=== PATIENT | female | born 1940 | race Caucasian/White ===

== ENCOUNTER 2016-03-25 11:53 | Emergency (ER) | payer OTHER, MEDICARE ==
[~2016-03-25] VITALS: Ht 160 cm; Wt 86.2 kg
[~2016-03-25 11:53] MED LIST: ALTACE10 M2 PO; ARIMIDEX1 M1 PO; ASPIRIN EC81 M1 PO; COMBIGAN EYE DRO5 ML OPH; HYDROCHLOROTH12.5 M3 PO; LIPITOR20 M2 PO; METFORMIN HCL500 M3 PO; PRED FORTE1 ML OPH; TOPROL XL25 M1 PO; VERAPAMIL ER P200 MG PO
--- NOTE | 2016-03-25 12:57 | RADIOLOGY REPORT ---
EXAMINATION: XR ANKLE, LEFT CLINICAL INFORMATION: Fall, pain and swelling COMPARISON: None TECHNIQUE: AP, lateral, and oblique views of the left ankle. FINDINGS: Alignment across the ankle is anatomic. On the oblique view there is questionable subtle cortical irregularity along the lateral aspect of the distal fibula, for which a nondisplaced fracture difficult to exclude. Adjacent soft tissue swelling is present. Plantar calcaneal spurring is noted. IMPRESSION: Questionable subtle cortical irregularity along the lateral cortex of the distal fibula, only seen on a single view; a nondisplaced fracture is difficult to exclude in the setting of trauma and overlying soft tissue swelling.
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
[2016-03-25] MEDS ORDERED: PERCOCET 5-3251 EACH PO (14:55)
[2016-03-25 15:13] VITALS: BP 126/84
== END 2016-03-25 15:14 ==
LOC: ERH 11:53
DX: S82.832A Other fracture of upper and lower end of left fibula, initial encounter for closed fracture (principal); S39.012A Strain of muscle, fascia and tendon of lower back, initial encounter; W10.9XXA Fall (on) (from) unspecified stairs and steps, initial encounter
CPT/HCPCS: 73610-LT

== ENCOUNTER → 2016-09-16 | Day surgery (SDC) | payer OTHER, MEDICARE ==
[~2016-09-16] VITALS: Ht 160 cm; Wt 85.3 kg
[~2016-09-16] MED LIST changes: +ASPIRIN325 M2 PO; +PERCOCET 5-3251 EACH PO
--- NOTE | 2016-09-16 13:21 | Operative Report ---
Operative/Inv Procedure Report Surgery Date: 09/16/16 Name of Procedure: Excision of skin malignancy living 4 cm Full-thickness skin graft Lr 16 cm Biopsy left leg lesion separate Biopsy right leg lesion Application wound VAC 16 cm right leg Pre-Operative Diagnosis: Skin cancer left leg lesion left and right legs Post-Operative Diagnosis: Pathology pending Estimated Blood Loss: less than 50ml Surgeon/Investigation Division Captain: BENJAMIN RODRIGUEZ MD Anesthesia: moderate sedation Operative/Procedure Note Note: She was counseled regarding the procedure the alternatives risks and expected outcomes related to her requests surgical intervention to treat carcinoma of the left leg skin. We talked about excision for the full-thickness skin grafting with risk of infection bleeding pain partial complete loss Of the graft it for additional surgery based on final pathology recurrence. On the left anterior leg on the right anteriorly that will be biopsied today. He might need further surgery based on final pathology which the patient understands will not take place for 1-2 weeks. Patient signed informed consent after additional discussion. She is brought to the operating room placed supine on the table intravenous sedation antibiotic given in the left groin and bilateral lower extremity are prepped and draped in usual sterile fashion. Full -thickness excision around the lesion for the dimensions described above was carried out to the crural fascia. At that point full-thickness graft was harvested from the left groin defatted and placed into the defect chromic suture. A wound VAC was placed. Shave biopsy was carried out with a separate lesion of the left anterior leg and the right anterior leg wound entry with electrocautery and covered with Band-Aids. The right groin was closed in 2 layers of absorbable suture.
== END ==
LOC: STS 02:28
DX: C44.719 Basal cell carcinoma of skin of left lower limb, including hip (principal); C44.712 Basal cell carcinoma of skin of right lower limb, including hip; I10 Essential (primary) hypertension; E11.9 Type 2 diabetes mellitus without complications; Z79.84 Long term (current) use of oral hypoglycemic drugs; E78.00 Pure hypercholesterolemia, unspecified
CPT/HCPCS: J0131; J0690; J2250

== ENCOUNTER 2017-05-11 19:31 | Inpatient (IN) | payer OTHER, MEDICARE ==
[~2017-05-11] VITALS: Ht 160 cm; Wt 79.4 kg
[~2017-05-11 19:31] MED LIST changes: +AMOXICILLIN250 M3 PO; +TYLENOL WITH C1 EACH PO
--- NOTE | 2017-05-11 19:39 | ED AMS/SEIZURE/WEAK/DIZZY ---
History of Present Illness General Chief Complaint: General Adult Stated Complaint: WEAKNESS X 1 WEEK Source: patient, old records Exam Limitations: no limitations Vital Signs & Intake/Output Vital Signs & Intake/Output Vital Signs Date Time Temp Pulse Resp B/P B/P Pulse O2 O2 Flow FiO2 Mean Ox Delivery Rate 05/11 2201 96.6 96 18 128/56 99 Room Air 05/11 1938 96.6 98 18 117/56 98 Room Air Allergies Coded Allergies: NO KNOWN ALLERGIES (03/18/16) NKA PER ANTIBIOTIC SHEET - SJS Reconcile Medications Amoxicillin 250 MG CAPSULE 1 CAP PO TID ABSCESS Aspirin (Aspirin*) 325 MG TABLET 1 TAB PO DAILY PROPHO (Reported) Atorvastatin Calcium (Lipitor) 20 MG TABLET 1 TAB PO DAILY CHOLESTEROL ( Reported) Brimonidine Tartrate/Timolol (Combigan Eye Drops) (Unknown Strength) DROPS ( Unknown Dose) OPH BID EYE(S) (Reported) Hydrochlorothiazide 12.5 MG CAPSULE 1 CAP PO DAILY BP (Reported) Metformin HCl 500 MG TABLET 1 TAB PO BID DM (Reported) Metoprolol Succ XL (Toprol XL) (Unknown Strength) TAB 50 MG PO DAILY HTN ( Reported) Prednisolone Acetate (Pred Forte) (Unknown Strength) DROPS.SUSP (Unknown Dose) OPH BID EYE(S) (Reported) Ramipril (Altace) 10 MG CAPSULE 2 CAP PO DAILY BP (Reported) Tylenol With Codeine (Tylenol With Codeine #3 Tablet) 300 MG-30 MG TABLET 1 TAB PO Q8P PRN PAIN Verapamil HCl (Verapamil ER Pm) 200 MG CAP24H.PCT 1 CAP PO DAILY BP (Reported ) Triage Note: PT BIBA FROM HOME AFTER C/O WEAKNESS STARTING 3 DAYS AGO. PT CURRENTLY C/O NAUSEA, SOB, BACK PAIN, CONSTIPATION X 3 DAYS. PT AOX3. 20G IV IN LW ESTABLISHED BY EMS. PER EMS BS WAS "IN THE 200S" Triage Nurses Notes Reviewed? yes Onset: Abrupt Duration: day(s): (3), constant Timing: recent history Injury Environment: home Severity: moderate Severity Numbers: 5 No Modifying Factors: none Associated Symptoms: cough HPI: 76-year-old female history of hypertension and high cholesterol, presents with daughter for evaluation complain of generalized malaise weakness for the past 3 days associated with nonproductive cough nausea and constipation for 4 days. She denies abdominal pain diarrhea. No vomiting. No chest pain. No shortness of breath fever chills no sick contacts. She has not taken anything for her symptoms no urinary urgency frequency dysuria. She has been compliant with taking all her medication. she does not smoke (Michael Sifuentes) Past History Travel History Traveled to [place] past 21 day No Medical History Any Pertinent Medical History? see below for history Neurological: NONE EENT: glaucoma Cardiovascular: hypertension, hyperlipidemia Respiratory: NONE Gastrointestinal: NONE Hepatic: NONE Renal: NONE Musculoskeletal: NONE Psychiatric: NONE Endocrine: diabetes Blood Disorders: NONE Cancer(s): NONE CUSTOM PROTECTION OFFICER/Reproductive: NONE Surgical History Surgical History: non-contributory Psychosocial History What is your primary language Chadian Tobacco Use: Quit >30 days ago ETOH Use: occasional use Family History Hx Contributory? No (Michael Sifuentes) Review of Systems Review of Systems Constitutional: Reports: see HPI. Comments Review of systems: See HPI, All other systems negative. Constitutional, no chills no fever HEENT: no sore throat no congestion Cardiovascular: No chest pain , no palpitation Skin: no rashes, no change in skin Respiratory: No dyspnea cough GI: No nausea no vomiting, no diarrhea : No dysuria No hematuria, no frequency jamin: no back pain, no neck pain, Neurologic: , no headache Heme/endocrine: No bruising Immunology: No lymphadenopathy (Michael Sifuentes) Physical Exam Physical Exam General Appearance: well developed/nourished, no apparent distress, alert Comments: Well-developed well-nourished person in no acute distress HEENT: Normal EENT exam; PERRL, EOMI,. HEAD is atraumatic. moist mucous membranes. Neck: Supple, normal range of motion Back: Full range of motion Cardiovascular: Regular rate and rhythms no murmurs Respiratory: No respiratory distress. Patient speaking in full complete sentences. Breath sounds clear to auscultation bilaterally: NO W/R/R Abdomen: Soft, nontender nondistended, no appreciable organomegaly. Normal bowel sounds. No rebound/guarding, No ascites. Rectal: Nontender. Heme negative stool. Extremity: No edema, full range of motion of extremities, Neuro: Alert oriented x3, motor sensory normal, There were no obvious focal neurologic abnormalities. Skin: No appreciable rash on exposed skin, skin is warm and dry. Psych: Mood and affect is normal, memory and judgment is normal. Core Measures ACS in differential dx? No CVA/TIA Diagnosis No Sepsis Present: No Sepsis Focused Exam Completed? No (Sloan RODRIGUEZ,Michael) Progress Differential Diagnosis: arrythmia, anemia, dehydration, electrolyte imbalance ( AMI, PNA CONSTIPATION, GI BLEE), GI bleed Plan of Care: Orders Procedure Date/time Status Consistent Carbohydrate 2 05/12 B Active BLOOD PRODUCT PICKUP 05/11 2232 Active Patient Data 05/11 2219 Active OXYGEN SETUP (GEN) 05/11 2147 Active Saline Lock 05/11 2147 Active Admit to inpatient 05/11 2147 Active Vital Signs 05/11 2147 Active Activity/Ambulation 05/11 2147 Active Code Status 05/11 2147 Active LEUKOCYTE POOR (PACKED CELLS) 05/11 2124 Active PROTHROMBIN TIME 05/11 2119 Complete TYPE & SCREEN (NOT X-MATCH) 05/11 2119 Active Add-on Test (ER Only) 05/11 2056 Active CULTURE,URINE 05/11 2017 Active RAPID VIRAL INFLUENZA A 05/11 1938 Complete URINALYSIS 05/11 1938 Complete TROPONIN LEVEL 05/11 1938 Complete COMPREHENSIVE METABOLIC PANEL 05/11 1938 Complete CBC WITHOUT DIFFERENTIAL 05/11 1938 Complete EKG 05/11 1937 Active Laboratory Tests 05/11/172154: PT 13.4 H, INR 1.28 H 05/11/172014: Urine Color YEL, Urine Clarity HAZY H, Urine pH 6.0, Ur Specific Manter 1.020, Urine Protein 30 H, Urine Ketones 15 H, Urine Nitrite NEG, Urine Bilirubin NEG @ICTO, Urine Urobilinogen 0.2, Ur Leukocyte Esterase MOD H, Ur Microscopic SEDIMENT EXAMINED, Urine RBC FEW H, Urine WBC 25-50 H, Ur Epithelial Cells FEW , Urine Bacteria MANY H, Urine Hemoglobin TRACE-INTACT, Urine Glucose NEG 05/11/171958: Anion Gap 21 H, Estimated GFR 19 L, BUN/Creatinine Ratio 25.0, Glucose 104 H, Calcium 9.2, Total Bilirubin 1.4 H, AST 192 H, ALT 79 H, Alkaline Phosphatase 436 H, Troponin I < 0.01, Total Protein 6.0 L, Albumin 3.4 L, Globulin 2.6, Albumin/Globulin Ratio 1.3, CBC w Diff MAN DIFF ORDERED, RBC 2.90 L, MCV 67.0 L, MCH 21.5 L, MCHC 32.0 L, RDW 19.4 H, MPV 7.5, Gran % 42.6, Lymphocytes % 43.0, Monocytes % 12.5 H, Eosinophils % 1.9, Basophils % 0, Absolute Granulocytes 1.8, Segmented Neutrophils 48, Band Neutrophils 3, Absolute Lymphocytes 1.8, Lymphocytes 38, Monocytes 9, Absolute Monocytes 0.5, Eosinophils 2, Absolute Eosinophils 0.1, Absolute Basophils 0, Nucleated RBCs 20 H, Platelet Estimate DECREASED, Polychromasia 1+, Hypochromic-Microcytic 2+, Poikilocytosis 1+, Anisocytosis 2+, Microcytic Cells 2+ Microbiology 05/11 2017 URINE ROUT: Urine Culture - RECD 05/11 1999 NASOPHARYN: Influenza Virus A & B Rapid Smear - COMP Labs ordered old records reviewed at the fluids ordered Discussed the patient and her family all her lab results-there is no abdominal pain I discussed with him the incidental findings regarding the elevated LFTs, she reports the last transfusion she needed when when she gave , no black or bloody stools recently guaiac was negative patient was consented for 1 unit of blood Case discussed with Dr. Huang will admit Diagnostic Imaging: Viewed by Me: Radiology Read. Discussed w/RAD: Radiology Read. Radiology Impression: PATIENT: BOUCHRA LOZADA PRESENT AGE: 76 PATIENT ACCOUNT NO: [id number] : 40 LOCATION: [facility] ORDERING PHYSICIAN: Michael RODRIGUEZ SERVICE DATE: 05/11/17 EXAM TYPE: RAD - [id number] VIEW EXAMINATION: XR ABDOMEN CLINICAL INDICATION: Constipation. Abdominal pain. COMPARISON: None TECHNIQUE: AP view of the abdomen. FINDINGS: Small to moderate volume of stool in colon. Largest collection of the stool is in the pelvis at the rectum sigmoid. No dilated bowel loop. Nonobstructive bowel pattern. No radiopaque urinary calculi. Degenerative subchondral sclerosis of sacroiliac joints. Degenerative disc disease of lower lumbar spine with multilevel endplate spurring of vertebrae. IMPRESSION: No acute change. Small to moderate volume of stool in colon. DICTATED BY: Braulio Garza MD DATE/TIME DICTATED:05/11/172150 BOOT MAKER:APPLE DATE/TIME TRANSCRIBED:05/11/172150 CONFIDENTIAL, DO NOT COPY WITHOUT APPROPRIATE AUTHORIZATION. <Electronically signed in Other Vendor System> SIGNED BY: Braulio Garza MD 05/11/172155, PATIENT: BOUCHRA LOZADA PRESENT AGE: 76 PATIENT ACCOUNT NO: [id number] : 40 LOCATION: [facility] ORDERING PHYSICIAN: Michael RODRIGUEZ SERVICE DATE: 05/11/17 EXAM TYPE: RAD - XRY-CHEST XRAY, TWO VIEWS EXAMINATION: XR CHEST CLINICAL INFORMATION: Cough. COMPARISON: None TECHNIQUE: 2 views of the chest were obtained. FINDINGS: Heart size is top normal. There are calcifications of aortic arch. No pulmonary vascular congestion. Lungs are clear. No pleural effusion Multiple surgical clips in the left axilla. Degenerative spondylosis of spine with bridging osteophytes of the thoracic vertebrae. IMPRESSION: No acute abnormality of chest. DICTATED BY: Braulio Garza MD DATE/TIME DICTATED:05/11/172149 BOOT MAKER:APPLE DATE/TIME TRANSCRIBED:05/11/172149 CONFIDENTIAL, DO NOT COPY WITHOUT APPROPRIATE AUTHORIZATION. <Electronically signed in Other Vendor System> SIGNED BY: Braulio Garza MD 05/11/172153 Initial ED EKG: normal intervals, normal p-waves, normal QRS complex, normal sinus rhythm (Michael Sifuentes) Departure Departure Time of Disposition: 2123 Disposition: STILL A PATIENT Condition: Stable Clinical Impression Primary Impression: JOSUE (acute kidney injury) Secondary Impressions: Anemia, Elevated bilirubin, Hyperkalemia, Transaminitis Referrals: Orestes Huang MD (PCP/Family) Departure Forms: Customer Survey General Discharge Information Admission Note Spoke With: Oresets Huang MD Documentation of Exam: Documentation of any treatments & extenuating circumstances including Concerns Regarding Discharge (functional status, medication knowledge or non-compliance, living conditions, etc.) that warrant an admission rather than observation: [ TREND LABS TREND H/H, IV FLUIDS, PREMATURE DISCHARGE WOULD BE MEDICALLY HARMFUL (Michael Sifuentes) PA/BINDERY LIBRARY TECHNICAL ASSISTANT Co-Sign Statement Statement: ED Attending supervision documentation- x I saw and evaluated the patient. I have also reviewed all the pertinent lab results and diagnostic results. I agree with the findings and the plan of care as documented in the PA's/BINDERY LIBRARY TECHNICAL ASSISTANT's documentation. Progressive weakness anorexia fatigue with UTI JOSUE [] I have reviewed the ED Record and agree with the PA's/BINDERY LIBRARY TECHNICAL ASSISTANT's documentation. [] Additions or exceptions (if any) to the PAs/BINDERY LIBRARY TECHNICAL ASSISTANT's note and plan are summarized below: [] (Yenny LAKE,Kit)
[2017-05-11 20:12] LABS: ABSOLUTE BASOPHIL COUNT 0 /CUMM (0.0-0.2); ABSOLUTE EOSINOPHIL COUNT 0.1 /CUMM (0.0-0.7); ABSOLUTE GRANULOCYTE CT 1.8 /CUMM (1.4-6.5); ABSOLUTE LYMPH COUNT 1.8 /CUMM (1.2-3.4); ABSOLUTE MONOCYTE COUNT 0.5 /CUMM (0.10-0.60); BASOPHIL % 0 % (0.0-2.0); EOSINOPHIL % 1.9 % (0-5); GRANULOCYTE % 42.6 % (42.2-75.2); MEAN CORPUSCULAR HGB 21.5 PG (27.0-31.0); MEAN PLATELET VOLUME 7.5 FL (7.4-10.4); PLATELET COUNT 35 /CUMM (130-400); RBC DISTRIBUTION WIDTH 19.4 % (11.5-14.5)
[2017-05-11 20:17] LABS: HEMATOCRIT 19.4 % (37-47)
[2017-05-11 20:44] LABS: WHITE BLOOD CELL COUNT 3.6 /CUMM (4.8-10.8)
--- NOTE | 2017-05-11 21:54 | RADIOLOGY REPORT ---
EXAMINATION: XR CHEST CLINICAL INFORMATION: Cough. COMPARISON: None TECHNIQUE: 2 views of the chest were obtained. FINDINGS: Heart size is top normal. There are calcifications of aortic arch. No pulmonary vascular congestion. Lungs are clear. No pleural effusion Multiple surgical clips in the left axilla. Degenerative spondylosis of spine with bridging osteophytes of the thoracic vertebrae. IMPRESSION: No acute abnormality of chest.
--- NOTE | 2017-05-11 21:56 | RADIOLOGY REPORT ---
EXAMINATION: XR ABDOMEN CLINICAL INDICATION: Constipation. Abdominal pain. COMPARISON: None TECHNIQUE: AP view of the abdomen. FINDINGS: Small to moderate volume of stool in colon. Largest collection of the stool is in the pelvis at the rectum sigmoid. No dilated bowel loop. Nonobstructive bowel pattern. No radiopaque urinary calculi. Degenerative subchondral sclerosis of sacroiliac joints. Degenerative disc disease of lower lumbar spine with multilevel endplate spurring of vertebrae. IMPRESSION: No acute change. Small to moderate volume of stool in colon.
[2017-05-11 22:12] LABS: PT 13.4 SEC (9.4-12.5)
--- NOTE | 2017-05-12 01:52 | CT SCAN REPORT ---
EXAMINATION: CT CHEST WITHOUT CONTRAST CT ABDOMEN AND PELVIS WITHOUT CONTRAST CLINICAL INFORMATION: Shortness of breath, cough. Transaminitis, weight loss. COMPARISON: None. TECHNIQUE: Multidetector volumetric imaging was performed through the chest, abdomen and pelvis without contrast. Sagittal and coronal reformatted images were obtained on the technologist's workstation. Axial MIP volume rendering provided. DLP: 498 mGy-cm. FINDINGS: CHEST: Lungs: The central airways are patent. Minimal groundglass opacity seen in the lingula along the major fissure. No dense consolidation. No pneumothorax or pleural effusion. Mild mosaic attenuation seen in the upper lobes anteriorly. Mediastinum: The heart is normal in size. No pericardial effusion. Prominent appearance of the main pulmonary artery measuring 3.7 cm suggesting pulmonary artery hypertension. The visualized thyroid gland is unremarkable. No mediastinal lymphadenopathy. Chest Wall/Axilla: There is a nodular density in the upper outer quadrant of the left breast with multiple surrounding surgical clips. No axillary lymphadenopathy. ABDOMEN/PELVIS: Liver, Gallbladder, Biliary Tree: The liver is normal in size, shape, and attenuation. No focal hepatic lesion or biliary ductal dilatation is present. The gallbladder is unremarkable with no evidence of radiopaque gallstones, gallbladder wall thickening, or pericholecystic inflammatory changes. Pancreas: Unremarkable. Spleen: Unremarkable. Adrenal Glands: Unremarkable. Kidneys and Ureters: The kidneys are normal in size, shape, and attenuation. No hydronephrosis, hydroureter or calculi seen. No perinephric stranding. Bladder: Unremarkable. Gastrointestinal Tract: The stomach is unremarkable. The small bowel is normal in caliber. No obstruction. Scattered colonic diverticulosis without diverticulitis. Stool distends the rectum. No colonic wall thickening or inflammatory change. No free air or free fluid. Abdominal Wall: No hernia is demonstrated. Lymphovascular Structures: Lymph nodes: Normal. Vascular: Normal caliber aorta. Moderate atherosclerotic calcifications. Pelvic Viscera: The uterus and adnexa are unremarkable. OSSEOUS STRUCTURES: There are diffuse sclerotic lesions throughout the osseous structures suggestive of metastatic disease. This involves all of the visualized osseous structures on the examination. Mild compression deformity of the L3 vertebral body with approximately 50% loss of vertebral body height anteriorly. DISH. IMPRESSION: 1. Diffuse sclerotic lesions throughout the osseous structures suggestive of metastatic disease. Mild compression deformity of the L3 vertebral body of uncertain chronicity. 2. Minimal groundglass opacities in the lungs. A component of mild edema is possible. 3. No acute inflammatory changes of the abdomen or pelvis. Scattered diverticulosis without diverticulitis.
--- NOTE | 2017-05-12 02:37 | History & Physical ---
[place],Kacey 05/12/17 0237: General Information and HPI MD Statement: I have seen and personally examined BOUCHRA LOZADA and documented this H&P. The patient is a 76 year old F who presented with a patient stated chief complaint of [weakness]. Source of Information: patient, family Exam Limitations: poor historian History of Present Illness: 76 years old female with past medical history of hypertension, hyperlipidemia, skin cancer of the left leg S/P excision on 08/2016,BRBPR and sigmoid polyp S/P polypectomy on 10/2010, diverticulosis, internal hemorrhoid, breast cancer S/P lumpectomy on 10/2010 after which she was treated with chemotherapy and radiotherapy. Patient comes to the ED complaining of weakness, exertional shortness of breath for one week, dizziness back pain and spasm of the back muscles for 1 week for which the patient was taking [id number] Motrin 200 mg 3 tablets daily for the past 3 days. She also reports Nausea, vomiting of clear contents most likely mucus, diarrhea for a long time because the patient has history of diverticulosis, she reported having constipation for the past 4 days. Patient reports unintentional weight loss of 20 pounds in the past 6 months due to decreased appetite. Patient also noticed easy bruising and bleeding from a lesion on her right elbow. Patient denies fever, chills, chest pain, edema dysuria, frequency. Patient lives home with her daughter and is independent in her daily activities No sick contacts or recent travel, Of note the patient thinks she has a family history of thalassemia but she is not sure about the diagnosis, she also reports being hospitalized in her 40s for possible leukemia however she cannot recall her exact diagnosis Known smoker, drinks 2-3 glasses of wine daily ED course: Vital signs: Blood pressure 128/56, pulse 96, respiratory rate 18, temperature 96.6, pulse was 9 on room air Labs: WBC 3.6, hemoglobin 6.2, hematocrit 19.4, platelet 35, sodium 138, potassium 5.5, BUN 60, creatinine 2.5, glucose 104, phosphorus 4.6, iron 240, total bilirubin 1.4, AST 192, AST 79 alkaline phosphatase 436, LDH 2589, PT 13.4 INR 1.28 Patient patient received 1 units of packed RBCs in the ED Allergies/Medications Allergies: Coded Allergies: NO KNOWN ALLERGIES (03/18/16) NKA PER ANTIBIOTIC SHEET - SJS Home Med list Aspirin (Aspirin*) 325 MG TABLET 1 TAB PO DAILY PROPHO (Reported) Atorvastatin Calcium (Lipitor) 20 MG TABLET 1 TAB PO DAILY CHOLESTEROL ( Reported) Brimonidine Tartrate/Timolol (Combigan Eye Drops) (Unknown Strength) DROPS ( Unknown Dose) OPH BID EYE(S) (Reported) Hydrochlorothiazide 12.5 MG CAPSULE 1 CAP PO DAILY BP (Reported) Metformin HCl 500 MG TABLET 1 TAB PO BID DM (Reported) Metoprolol Succ XL (Toprol XL) (Unknown Strength) TAB 50 MG PO DAILY HTN ( Reported) Prednisolone Acetate (Pred Forte) (Unknown Strength) DROPS.SUSP (Unknown Dose) OPH BID EYE(S) (Reported) Ramipril (Altace) 10 MG CAPSULE 1 CAP PO DAILY BP (Reported) Verapamil HCl (Verapamil ER Pm) 200 MG CAP24H.PCT 1 CAP PO DAILY BP (Reported ) Past History Travel History Traveled to [place] past 21 day No Medical History Neurological: NONE EENT: glaucoma Cardiovascular: hypertension, hyperlipidemia Respiratory: NONE Gastrointestinal: NONE Hepatic: NONE Renal: NONE Musculoskeletal: NONE Psychiatric: NONE Endocrine: diabetes Blood Disorders: NONE Cancer(s): breast cancer PRE OWNED SALES MANAGER/Reproductive: NONE Surgical History Surgical History: non-contributory Past Family/Social History Psychosocial History ETOH Use: occasional use Review of Systems Review of Systems Constitutional: Reports: malaise, weakness. Denies: chills, diaphoresis, fever. Cardiovascular: Denies: chest pain, edema, orthopena, palpitations, peripheral edema. Respiratory: Reports: cough, short of breath, sputum production. GI: Reports: constipation, diarrhea, nausea, vomiting. Genitourinary: Denies: no symptoms. Musculoskeletal: Denies: no symptoms. Skin: Denies: no symptoms. Exam & Diagnostic Data Last 24 Hrs of Vital Signs/I&O Vital Signs Date Time Temp Pulse Resp B/P B/P Pulse O2 O2 Flow FiO2 Mean Ox Delivery Rate 05/12 0030 98.2 81 18 119/56 96 Room Air 05/12 0015 97.1 89 18 135/62 97 Room Air 05/11 2201 96.6 96 18 128/56 99 Room Air 05/11 1938 96.6 98 18 117/56 98 Room Air Intake & Output 05/12 0800 02/22 0000 05/11 1600 Intake Total 1000 Output Total Balance 1000 Intake, IV 1000 Patient 175 lb Weight Weight Reported by Patient Measurement Method Last 24 Hrs of Labs/Jim: Laboratory Tests 05/11/175: PT 13.4 H, INR 1.28 H 05/11/172014: Urine Color YEL, Urine Clarity HAZY H, Urine pH 6.0, Ur Specific [place] 1.020, Urine Protein 30 H, Urine Ketones 15 H, Urine Nitrite NEG, Urine Bilirubin NEG @ICTO, Urine Urobilinogen 0.2, Ur Leukocyte Esterase MOD H, Ur Microscopic SEDIMENT EXAMINED, Urine RBC FEW H, Urine WBC 25-50 H, Ur Epithelial Cells FEW , Urine Bacteria MANY H, Urine Hemoglobin TRACE-INTACT, Urine Glucose NEG 05/11/171958: Haptoglobin Pending 05/11/171958: Anion Gap 21 H, Estimated GFR 19 L, BUN/Creatinine Ratio 25.0, Glucose 104 H, Calcium 9.2, Phosphorus 4.6 H, Magnesium 2.1, Iron 240 H, TIBC 275, Ferritin Pending, Total Bilirubin 1.4 H, Direct Bilirubin 0.9 H, AST 192 H, ALT 79 H, Alkaline Phosphatase 436 H, Lactate Dehydrogenase 2589 H, Troponin I < 0.01, Total Protein 6.0 L, Albumin 3.4 L, Globulin 2.6, Albumin/Globulin Ratio 1.3, Vitamin B12 Pending, Folate Pending, CBC w Diff MAN DIFF ORDERED, RBC 2.90 L, MCV 67.0 L, MCH 21.5 L, MCHC 32.0 L, RDW 19.4 H, MPV 7.5, Gran % 42.6, Lymphocytes % 43.0, Monocytes % 12.5 H, Eosinophils % 1.9, Basophils % 0, Absolute Granulocytes 1.8, Segmented Neutrophils 48, Band Neutrophils 3, Absolute Lymphocytes 1.8, Lymphocytes 38, Monocytes 9, Absolute Monocytes 0.5, Eosinophils 2, Absolute Eosinophils 0.1, Absolute Basophils 0, Nucleated RBCs 20 H, Platelet Estimate DECREASED, Polychromasia 1+, Hypochromic-Microcytic 2+, Poikilocytosis 1+, Anisocytosis 2+, Microcytic Cells 2+, Retic Count 2.86 H, Hepatitis A IgM Ab Pending, Hep Bs Antigen Pending, Hep B Core IgM Ab Conf Pending, Hepatitis C Antibody Pending Microbiology 05/11 2017 URINE ROUT: Urine Culture - RECD 05/11 1999 NASOPHARYN: Influenza Virus A & B Rapid Smear - COMP Diagnostic Data CXR Results No acute abnormality of chest. Other Results CT abdomen and pelvis: 1. Diffuse sclerotic lesions throughout the osseous structures suggestive of metastatic disease. Mild compression deformity of the L3 vertebral body of uncertain chronicity. 2. Minimal groundglass opacities in the lungs. A component of mild edema is possible. 3. No acute inflammatory changes of the abdomen or pelvis. Scattered diverticulosis without diverticulitis. CT chest: 1. Diffuse sclerotic lesions throughout the osseous structures suggestive of metastatic disease. Mild compression deformity of the L3 vertebral body of uncertain chronicity. 2. Minimal groundglass opacities in the lungs. A component of mild edema is possible. 3. No acute inflammatory changes of the abdomen or pelvis. Scattered diverticulosis without diverticulitis. Assessment/Plan Assessment: 76 years old female with past medical history of hypertension, hyperlipidemia, skin cancer of the left leg S/P excision on 08/2016,BRBPR and sigmoid polyp S/P polypectomy on 10/2010, diverticulosis, internal hemorrhoid, breast cancer S/P lumpectomy on 10/2010 after which she was treated with chemotherapy and radiotherapy. 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 Other possibilities include leukemia/ lymphoma with cold autoimmune hemolysis. -Admit to general medical floor -Patient received 1 unit of packed RBCs in the ED -Follow up on Ferritin, TIBC, Delmy' test, reticulocyte count, vitamin B12, folic acid -Hematology consult appreciated -GI consult appreciated -Close monitoring of CBC -Vitals every shift #History of diabetes mellitus: Hold home meds Insulin sliding scale Fingerstick glucose #JOSUE/hyperkalemia Differential diagnosis includes a prerenal due to dehydration and poor oral intake, analgesic nephropathy, multiple myeloma. Gentle IV hydration Avoid nephrotoxic medication Close monitoring of kidney function Intake and output # Transaminitis: Differential diagnosis includes liver metastasis, analgesic side effect, GI consult appreciated Monitor of liver function test #Back pain: Since the patient has both renal impairment and hepatic impairment will avoid pain meds as possible Lidocaine patch Tylenol by mouth 500 mg every 8 when necessary #History of chronic medical condition includes hypertension, hyperlipidemia Continue home meds including metoprolol, verapamil Patient is full code DVT prophylaxis with Alps As Ranked By This Provider Problem List: 1. Elevated bilirubin 2. Transaminitis 3. Hyperkalemia 4. Anemia 5. JOSUE (acute kidney injury) 6. Lumbar strain Core Measures/Misc (12/05) Acute Coronary Syndrome ACS Diagnosis: No Congestive Heart Failure Congestive Heart Failure Diagnosis No Cerebrovascular Accident CVA/TIA Diagnosis: No VTE (View Protocol) VTE Risk Factors Age>40 No Mechanical VTE Prophylaxis d/t N/A MechProphylax Ordered No VTE Pharm Prophylaxis d/t Medical Contraindication Sepsis (View protocol) Sepsis Present: No Krishna Torres 05/12/17 0245: Resident Review Statement Resident Statement: examined this patient, discussed with test engineering intern, agreed with test engineering intern, discussed with family, reviewed EMR data (avail), discussed with nursing , discussed with case mgmt, reviewed images, amended to note Other Findings: This is 76 years old female with past medical history of hypertension, hyperlipidemia, skin cancer of the left leg S/P excision on 08/2016,BRBPR and sigmoid polyp S/P polypectomy on 10/2010, diverticulosis, internal hemorrhoid, breast cancer S/P lumpectomy on 10/2010 after which she was treated with chemotherapy and radiotherapy. Patient presented to the emergency department with a chief complaint of feeling tired, weak and fatigue. According to her and her daughter she been experiencing shortness of breath for the past week that is associated with back pain and muscle spasm and due to that patient was taking Aleve for 3 days 3-4 time a day, and after that she started to take 2 tablets of 200 mg of ibuprofen 2-3 time a day for the past 4 days. Patient reports constipation for the past 4 days, patient had recent colonoscopy on March 2017 that was done by Dr[address] Osorio that relieved pandiverticulosis. Patient also noticed easy bruising and bleeding from a lesion on her right elbow. Her daughter reports weight lost more than 20 pounds in the past 6 months that is associated with low appetite and decreased oral intake. Patient also states she drinking 3 -4 cups of wine every day, she denied using any hard liquor. Patient denies fever, chills, chest pain, edema dysuria, frequency. Of note patient stated that she had some blood disease and when we asked her she thought it could be thalassemia she's not sure also she stated that when she was with her child 4 years ago she received blood transfusion and they told her she may have some sort of leukemia but after that they told her she didn't have any of that. Assessment: -Pancytopenia: Patient stool guaiac negative, her pancytopenia associated with low MCV/MCH, wide differential diagnosis starting from benign hematology for disease like thalassemia as the patient has a sign of intravascular hemolysis, due to this hemolysis questionable autoimmune hemolytic anemia also with low platelet count Wright syndrome one of the differential. malignant hematological disease need to be ruled out like MDS, multiple myeloma giving the patient renal impairment with a CT scan finding of osseous sclerotic lesion and Pancytopenia. -Acute kidney injury/transaminitis: Acute kidney injuries can be due to the underlying hemolysis, NSAID use or underlying undiagnosed hematologic disease. Her transaminitis which is new when we compared with the previous blood work, we need to check iron study to R/O hemochromatosis, hepatitis panel to further evaluate the underlying cause. Problem list: -Pancytopenia -Acute kidney injury, hyperkalemia -Transaminitis -Constipation -Generalized weakness Plan: -Admit patient to general medicine floor -Vitals every shift -Type and crossmatch, transferred 1 unit of packed RBC -Obtain iron study, LDH, heptoglobin, reticulocyte count, vitamin B12, folate. -Obtain CT scan of chest, abdomen, pelvis without IV contrast -IV fluid hydration of normal saline at 75 mL/h. -Patient will need SPEP/UPEP, KERWIN, hemoglobin electrophoresis. -Obtain hepatitis panel, GGT. -Hematology consultation in a.m. -Guaiac all stools -GI consultation in a.m. -Accu-Chek, insulin sliding scale -Carbohydrate consistent diet -Pain pathway -DVT prophylaxis: ALPS -Full code.
[2017-05-12 05:17] LABS: HEMATOCRIT 23.6 % (37-47); MEAN CORPUSCULAR HGB 23.4 PG (27.0-31.0); MEAN CORPUSCULAR HGB CONC 32.2 G/DL (33.0-37.0); MEAN PLATELET VOLUME 7.6 FL (7.4-10.4); PLATELET COUNT 41 /CUMM (130-400); RBC DISTRIBUTION WIDTH 24.9 % (11.5-14.5); RED BLOOD CELL CT 3.25 /CUMM (4.20-5.40)
[2017-05-12 05:25] LABS: MEAN CORPUSCULAR VOLUME 72.6 FL (81.0-99.0)
[2017-05-12 05:30] LABS: PTT 20 SEC (25-37)
[2017-05-12 08:30] VITALS: BP 120/56
--- NOTE | 2017-05-12 08:37 | Cons- Hematology ---
General Information and HPI Consulting Request Date of Consult: 05/12/17 Requested By: Orestes Huang MD Reason for Consult: Pancytopenia, breast cancer Source of Information: patient, old records Exam Limitations: poor historian History of Present Illness: Ms. Rascon is a 76-year-old female with history of thalassemia, breast cancer status post lumpectomy, chemotherapy, radiation, and endocrine therapy, hypertension, hyperlipidemia, skin cancer of the left leg S/P excision on 2016, sigmoid polyp s/p polypectomy on 10/2010, diverticulosis, and internal hemorrhoid who presented to the hospital with weakness and exertional dyspnea for 1 week. She has been having back pain and has been taking Motrin 200 mg three times a day. She has not had any fever or chills. She does have a cough which is non-productive. She has no abdominal pain, constipatio, diarrhea, nausea, or vomiting. She denies any bleeding or bruising. She denies any urinary issue. She has been having weight loss. She has decreased appetite. She denies any sick contact. She lives at home with her daughter. On presentation, she was noted to have hemoglobin of 6.2 with hematocrit of 19.4. Platelet count was 35,000. Her WBC was 3,600. Creatinine was elevated at 2.5. Her total bilirubin was 1.4. LFT was elevated. She was given 1 unit of pRBC in the ED. CT of the chest, abdomen, and pelvis was done and noted possible metastatic disease to the bone. She feels relatively well this morning. She denies any fever or chills. She has no new pain. Allergies/Medications Allergies: Coded Allergies: NO KNOWN ALLERGIES (03/18/16) NKA PER ANTIBIOTIC SHEET - [facility] Home Med List: Aspirin (Aspirin*) 325 MG TABLET 1 TAB PO DAILY PROPHO (Reported) Atorvastatin Calcium (Lipitor) 20 MG TABLET 1 TAB PO DAILY CHOLESTEROL ( Reported) Brimonidine Tartrate/Timolol (Combigan Eye Drops) (Unknown Strength) DROPS ( Unknown Dose) OPH BID EYE(S) (Reported) Hydrochlorothiazide 12.5 MG CAPSULE 1 CAP PO DAILY BP (Reported) Metformin HCl 500 MG TABLET 1 TAB PO BID DM (Reported) Metoprolol Succ XL (Toprol XL) (Unknown Strength) TAB 50 MG PO DAILY HTN ( Reported) Prednisolone Acetate (Pred Forte) (Unknown Strength) DROPS.SUSP (Unknown Dose) OPH BID EYE(S) (Reported) Ramipril (Altace) 10 MG CAPSULE 1 CAP PO DAILY BP (Reported) Verapamil HCl (Verapamil ER Pm) 200 MG CAP24H.PCT 1 CAP PO DAILY BP (Reported ) Current Medications: Current Medications Sig/Lori Start time Last Medication Dose Route Stop Time Status Admin Acetaminophen 500 MG Q8P PRN 05/12 0030 AC PO Acetaminophen 0 .STK-MED ONE 05/11 2202 DC IV Acetaminophen 1,000 MG ONCE ONE 05/11 2199 DC 05/11 N/A 1 UNIT IV 05/11 Atorvastatin Calcium 20 MG ONCE ONE 05/11 2199 DC 05/11 PO 05/11 Insulin Aspart 0 TIDAC 05/12 0800 DC SC Insulin Aspart 0 TIDAC 05/12 0245 AC SC Lidocaine 1 PAT Q24H 05/12 0030 AC 05/12 EXT 0155 Metformin HCl 500 MG ONCE ONE 05/11 2199 DC 05/11 PO 05/11 Metoprolol Succinate 50 MG DAILY 05/12 1000 AC PO Ondansetron HCl 4 MG ONCE ONE 05/12 0515 DC 05/12 IV 05/12 0516 0513 Ondansetron HCl 0 .STK-MED ONE 05/12 0514 DC .ROUTE Polyethylene Glycol 17 GM ONCE ONE 05/12 29 DC 05/12 PO 05/12 0031 0155 Senna/Docusate Sodium 1 TAB BID PRN 05/12 0030 AC PO Sodium Chloride 1,000 ML .[id number] 05/12 0030 AC 05/12 IV 0155 Sodium Chloride 1,000 ML BOLUS ONE 05/11 2099 DC 05/11 IV 05/11 Sodium Chloride 1,000 ML BOLUS ONE 05/11 1999 DC 05/11 IV 05/11 Verapamil HCl 200 MG DAILY 05/12 1000 AC PO Review of Systems Review of Systems Constitutional: Reports: weakness, unexplained weight loss. Denies: chills, fever, malaise. Cardiovascular: Denies: chest pain, peripheral edema, syncope. Respiratory: Reports: cough, short of breath. Denies: hemoptysis, sputum production. GI: Denies: abdominal pain, constipation, diarrhea, melena, nausea, vomiting. Genitourinary: Denies: dysuria, hematuria. Musculoskeletal: Reports: back pain, joint pain. Neurological/Psychological: Denies: anxiety, confusion, depressed. Hematologic/Endocrine: Denies: bruising, bleeding. Immunologic/Allergic: Denies: lymphadenopathy. All Other Systems: Reviewed and Negative Past History Travel History Traveled to [place] past 21 day No Medical History Neurological: NONE EENT: glaucoma Cardiovascular: hypertension, hyperlipidemia Respiratory: NONE Gastrointestinal: NONE Hepatic: NONE Renal: NONE Musculoskeletal: NONE Psychiatric: NONE Endocrine: diabetes Blood Disorders: thalassemia Cancer(s): breast cancer GO GO DANCER/Reproductive: NONE Surgical History Surgical History: non-contributory Psychosocial History ETOH Use: occasional use Exam & Diagnostic Data Vital Signs and I&O Vital Signs Date Time Temp Pulse Resp B/P B/P Pulse O2 O2 Flow FiO2 Mean Ox Delivery Rate 05/12 0723 97.6 97 18 120/56 100 Room Air 05/12 0354 97.8 94 16 122/55 96 Room Air Room Air 05/12 0030 98.2 81 18 119/56 96 Room Air 05/12 0015 97.1 89 18 135/62 97 Room Air 05/11 2201 96.6 96 18 128/56 99 Room Air 05/11 1938 96.6 98 18 117/56 98 Room Air Intake & Output 05/12 1600 05/12 0800 05/12 0000 Intake Total 1000 Output Total Balance 1000 Intake, IV 1000 Patient 79.379 kg Weight Weight Reported by Patient Measurement Method Physical Exam General Appearance: well developed/nourished, no apparent distress, alert, awake , comfortable, obese Head: normal appearance Eyes: Bilateral: PERRL, EOMI. Ears, Nose, Throat: normal pharynx Neck: supple Respiratory: normal breath sounds, chest non-tender, no respiratory distress, quiet respiration Cardiovascular: regular rate/rhythm Gastrointestinal: normal bowel sounds, soft, non-tender, no organomegaly Extremities: no edema Neurologic/Psych: awake, alert, disoriented to year Skin: ecchymosis (left antecubial) Lymphatic: no adenopathy Last 48 Hours of Lab Results: Laboratory Tests 05/12 05/12 05/11 0600 0506 2155 Chemistry Sodium (137 - 145 mmol/L) Cancelled 141 Potassium (3.5 - 5.1 mmol/L) Cancelled 5.1 Chloride (98 - 107 mmol/L) Cancelled 113 H Carbon Dioxide (22 - 30 mmol/L) Cancelled 10 L Anion Gap (5 - 16) Cancelled 18 H BUN (7 - 17 mg/dL) Cancelled 54 H Creatinine (0.5 - 1.0 mg/dL) Cancelled 2.0 H Estimated GFR (>60 ml/min) 24 L BUN/Creatinine Ratio (7 - 25 %) Cancelled 27.0 H GGT (12 - 43 U/L) 182 H Coagulation PT (9.4 - 12.5 SEC) 13.4 H INR (0.90 - 1.19) 1.28 H APTT (25 - 37 SEC) 20 L Fibrinogen Activity (200 - 393 MG/DL) 314 D-Dimer High Sensitivty (0 - 243 ng/ml) 933 H Hematology CBC w Diff Cancelled MAN DIFF ORDERED WBC (4.8 - 10.8 /CUMM) Cancelled 5.0 RBC (4.20 - 5.40 /CUMM) Cancelled 3.25 L Hgb (12.0 - 16.0 G/DL) Cancelled 7.6 L Hct (37 - 47 %) Cancelled 23.6 L MCV (81.0 - 99.0 FL) Cancelled 72.6 L MCH (27.0 - 31.0 PG) Cancelled 23.4 L MCHC (33.0 - 37.0 G/DL) Cancelled 32.2 L RDW (11.5 - 14.5 %) Cancelled 24.9 H Plt Count (130 - 400 /CUMM) Cancelled 41 L MPV (7.4 - 10.4 FL) Cancelled 7.6 Segmented Neutrophils (42.2 - 75.2 %) 31 L Band Neutrophils (0.0 - 5.0 %) 1 Lymphocytes (20.5 - 51.1 %) 53 H Monocytes (1.7 - 9.3 %) 13 H Eosinophils (0 - 5.0 %) 1 Basophils (0.0 - 2.0 %) 1 Nucleated RBCs (0.0 - 0.0 /100WBC) 15 H Platelet Estimate (ADEQUATE) DECREASED Polychromasia 1+ Hypochromic-Microcytic 1+ Poikilocytosis 3+ Anisocytosis 1+ Microcytic Cells 1+ Target Cells FEW Ovalocytes 1+ [place] Cells 1+ Elliptocytes 1+ Other Body Source Fld Total RBCs Counted (%) 100 05/11 Hematology Haptoglobin Pending Urines Urine Color (YEL,AMB,STR) YEL Urine Clarity (CLEAR) HAZY H Urine pH (5.0 - 8.0) 6.0 Ur Specific Fraser (1.001 - 1.035) 1.020 Urine Protein (NEG,<30 MG/DL) 30 H Urine Ketones (NEG) 15 H Urine Nitrite (NEG) NEG Urine Bilirubin (NEG) NEG@ICTO Urine Urobilinogen (0.1 - 1.0 EU/dl) 0.2 Ur Leukocyte Esterase (NEG) MOD H Ur Microscopic SEDIMENT EXAMINED Urine RBC (0 - 5 /HPF) FEW H Urine WBC (0 - 2 /HPF) 25-50 H Ur Epithelial Cells (NONE,FEW) FEW Urine Bacteria (NEG/NONE) MANY H Urine Hemoglobin (NEG) TRACE-INTACT Urine Glucose (N MG/DL) NEG 05/11 1958 Chemistry Sodium (137 - 145 mmol/L) 138 Potassium (3.5 - 5.1 mmol/L) 5.5 H Chloride (98 - 107 mmol/L) 105 Carbon Dioxide (22 - 30 mmol/L) 12 L Anion Gap (5 - 16) 21 H BUN (7 - 17 mg/dL) 60 H Creatinine (0.5 - 1.0 mg/dL) 2.5 H Estimated GFR (>60 ml/min) 19 L BUN/Creatinine Ratio (7 - 25 %) 25.0 Glucose (65 - 99 mg/dL) 104 H Calcium (8.4 - 10.2 mg/dL) 9.2 Phosphorus (2.5 - 4.5 mg/dL) 4.6 H Magnesium (1.6 - 2.3 mg/dL) 2.1 Iron (37 - 170 ug/dL) 240 H TIBC (265 - 497 ug/dL) 275 Ferritin (11.1 - 264 ng/mL) 9940.0 H Total Bilirubin (0.2 - 1.3 mg/dL) 1.4 H Direct Bilirubin (< 0.4 mg/dL) 0.9 H AST (14 - 36 U/L) 192 H ALT (9 - 52 U/L) 79 H Alkaline Phosphatase (<127 U/L) 436 H Lactate Dehydrogenase (313 - 618 U/L) 2589 H Troponin I (< 0.11 ng/ml) < 0.01 Total Protein (6.3 - 8.2 g/dL) 6.0 L Albumin (3.5 - 5.0 g/dL) 3.4 L Globulin (1.9 - 4.2 gm/dL) 2.6 Albumin/Globulin Ratio (1.1 - 2.2 %) 1.3 Vitamin B12 (239 - 931 pg/mL) 730 Folate (2.76 - 20.0 ng/mL) 4.7 Hematology CBC w Diff MAN DIFF ORDERED WBC (4.8 - 10.8 /CUMM) 3.6 L RBC (4.20 - 5.40 /CUMM) 2.90 L Hgb (12.0 - 16.0 G/DL) 6.2 *L Hct (37 - 47 %) 19.4 *L MCV (81.0 - 99.0 FL) 67.0 L MCH (27.0 - 31.0 PG) 21.5 L MCHC (33.0 - 37.0 G/DL) 32.0 L RDW (11.5 - 14.5 %) 19.4 H Plt Count (130 - 400 /CUMM) 35 L MPV (7.4 - 10.4 FL) 7.5 Gran % (42.2 - 75.2 %) 42.6 Lymphocytes % (20.5 - 51.1 %) 43.0 Monocytes % (1.7 - 9.3 %) 12.5 H Eosinophils % (0 - 5 %) 1.9 Basophils % (0.0 - 2.0 %) 0 Absolute Granulocytes (1.4 - 6.5 /CUMM) 1.8 Segmented Neutrophils (42.2 - 75.2 %) 48 Band Neutrophils (0.0 - 5.0 %) 3 Absolute Lymphocytes (1.2 - 3.4 /CUMM) 1.8 Lymphocytes (20.5 - 51.1 %) 38 Monocytes (1.7 - 9.3 %) 9 Absolute Monocytes (0.10 - 0.60 /CUMM) 0.5 Eosinophils (0 - 5.0 %) 2 Absolute Eosinophils (0.0 - 0.7 /CUMM) 0.1 Absolute Basophils (0.0 - 0.2 /CUMM) 0 Nucleated RBCs (0.0 - 0.0 /100WBC) 20 H Platelet Estimate (ADEQUATE) DECREASED Polychromasia 1+ Hypochromic-Microcytic 2+ Poikilocytosis 1+ Anisocytosis 2+ Microcytic Cells 2+ Retic Count (0.5 - 2.0 %) 2.86 H Serology Hepatitis A IgM Ab (NONREACTIVE) Pending Hep Bs Antigen (NONREACTIVE) Pending Hep B Core IgM Ab Conf (NONREACTIVE) Pending Hepatitis C Antibody (NONREACTIVE) Pending Imaging/Other Studies: CT chest/abdomen/pelvis 05/12/2017: 1. Diffuse sclerotic lesions throughout the osseous structures suggestive of metastatic disease. Mild compression deformity of the L3 vertebral body of uncertain chronicity. 2. Minimal groundglass opacities in the lungs. A component of mild edema is possible. 3. No acute inflammatory changes of the abdomen or pelvis. Scattered diverticulosis without diverticulitis. Assessment/Plan Assessment: Ms. Rascon is a 76-year-old female with history of thalassemia, breast cancer status post lumpectomy, chemotherapy, radiation, and endocrine therapy, hypertension, hyperlipidemia, skin cancer of the left leg S/P excision on 2016, sigmoid polyp s/p polypectomy on 10/2010, diverticulosis, and internal hemorrhoid who presented to the hospital with weakness and exertional dyspnea for 1 week. On admission, she was noted to have worsening anemia, new renal failure, and thrombocytopenia. Creatinine was 2.5. This improved with IVF. She was noted to have elevated ferritin and LDH. Bilirubin was slightly elevated at 1.4 ( normal 1.3). LFT was also elevated. She does have a somewhat elevated LFT at baseline from outpatient laboratory. Folate and B12 levels are normal. Peripheral blood smear was obtained and reviewed. She has numerous target cells , ovalocytes, jacky cell, elliptocytes, anisocytosis, poikilocytosis, basophilic stippling, tear drops cells, and rare schistocytes. She has increased reticulocytes and nucleated RBC. This is concerning for a hemolytic process and underlying marrow infiltration. KERWIN is negative. TTP is in the differential. She does not have confusion or fever. MAHA is not prominent. Renal failure seems to be improving with fluid. Medication induced TTP is also possible with NSAID usage. Haptoglobin is pending. [id number] may be sent for evaluation. DIC seems to be negative so far. CT imaging demonstrated sclerotic lesions concerning for metastatic disease. Infiltrative disease in the marrow is possible. She may need a bone scan for sclerotic disease evaluation. She may ultimately need bone biopsy with bone marrow evaluation. Recommendations: Pancytopenia: -repeat CBC -check [id number] level -send for SPEP -may need bone marrow biopsy if no improvement Sclerotic bone lesion: -obtain bone scan -may need bone biopsy JOSUE: -continue hydration -avoid nephrotoxic medication Breast cancer: -no obvious recurrence -follow up with Dr. Aiken as scheduled on 05/25/2017 Problem List: 1. Anemia 2. JOSUE (acute kidney injury) 3. Transaminitis 4. Thrombocytopenia Other Findings/Comments: Please call [phone] with any questions or concerns. Consult Acknowledgment - Thank you for your consult request.
--- NOTE | 2017-05-12 12:54 | Admission Certification ---
Admission Certification Certification Statement - As attending physician, I certify that at the time of - admission, based on clinical presentation, severity of - symptoms, need for further diagnostic testing and - therapeutic interventions, and risk of adverse outcomes - without in-hospital treatment, in my clinical assessment, - this patient requires an acute hospital stay for a minimum - of two nights or longer. I have also considered psychsocial - factors such as support system, advanced age, financial - issues, cognitive issues, and failed out-patient treatments, - past re-admission history, safety of patient, and lack of - compliance as applicable. Specific rationale supporting this admission is: Anemia, symptomatic, pancytopenia, acute renal insufficiency nausea weakness
--- NOTE | 2017-05-12 12:58 | PN- Att Addend ---
Attending Addendum Attending Brief Note 76-year-old white female with history of thalassemia, breast cancer skin cancer. Has been weak for at least a week then complaining of nausea redness of breath and some back pain taking Motrin with no vomiting and nonproductive cough and a little constipated for the last 3 days no fever no chills no abdominal pain no obvious melena comes to the emergency room found to have a hemoglobin of 6.2 hematocrit of 19.4 white count of 3600 BUN of 60, creatinine 2.5 calcium 5.5. Stools were guaiac negative the CAT scan showed some diffuse sclerotic lesions suggestive of metastatic disease patient was admitted having gentle hydration been transfused having hematology oncology consult to decide what other tests that she will need to make a diagnosis 24 TOTALS 05/12 0000 05/11 0000 Intake Total 1000 Output Total Balance 1000 Intake, IV 1000 Patient 175 lb Weight Weight Reported by Patient Measurement Method Current Medications Sig/Lori Start time Last Medication Dose Route Stop Time Status Admin Acetaminophen 500 MG Q8P PRN 05/12 003 AC PO Acetaminophen 0 .STK-MED ONE 05/11 2202 DC IV Acetaminophen 1,000 MG ONCE ONE 05/11 2199 DC 05/11 N/A 1 UNIT IV 05/11 2213 220 Atorvastatin Calcium 20 MG ONCE ONE 05/11 2199 DC 05/11 PO 05/11 2200 223 Insulin Aspart 0 TIDAC 05/12 0800 DC SC Insulin Aspart 0 TIDAC 05/12 0245 AC SC Lidocaine 1 PAT Q24H 05/12 0030 AC 05/12 EXT 0155 Metformin HCl 500 MG ONCE ONE 05/11 2199 DC 05/11 PO 05/11 2200 223 Metoprolol Succinate 50 MG DAILY 05/12 1000 AC 05/12 PO 1056 Ondansetron HCl 4 MG ONCE ONE 05/12 0515 DC 05/12 IV 05/12 0516 0513 Ondansetron HCl 0 .STK-MED ONE 05/12 0514 DC .ROUTE Polyethylene Glycol 17 GM ONCE ONE 05/12 29 DC 05/12 PO 05/12 0031 0155 Senna/Docusate Sodium 1 TAB BID PRN 05/12 0030 AC PO Sodium Chloride 1,000 ML .[id number] 05/12 0030 AC 05/12 IV 0155 Sodium Chloride 1,000 ML BOLUS ONE 05/11 2100 DC 05/11 IV 05/11 Sodium Chloride 1,000 ML BOLUS ONE 05/11 1999 DC 05/11 IV 05/11 Verapamil HCl 200 MG DAILY 05/12 1000 AC 05/12 PO 1056 Laboratory Tests 05/12/17 0600: Sodium Cancelled, Potassium Cancelled, Chloride Cancelled, Carbon Dioxide Cancelled, Anion Gap Cancelled, BUN Cancelled, Creatinine Cancelled, BUN/ Creatinine Ratio Cancelled, CBC w Diff Cancelled, WBC Cancelled, RBC Cancelled, Hgb Cancelled, Hct Cancelled, MCV Cancelled, MCH Cancelled, MCHC Cancelled, RDW Cancelled, Plt Count Cancelled, MPV Cancelled 05/12/17 0506: Anion Gap 18 H, Estimated GFR 24 L, BUN/Creatinine Ratio 27.0 H, GGT 182 H, APTT 20 L, Fibrinogen Activity 314, D-Dimer High Sensitivty 933 H, CBC w Diff MAN DIFF ORDERED, RBC 3.25 L, MCV 72.6 L, MCH 23.4 L, MCHC 32.2 L, RDW 24.9 H, MPV 7.6, Segmented Neutrophils 31 L, Band Neutrophils 1, Lymphocytes 53 H, Monocytes 13 H, Eosinophils 1, Basophils 1, Nucleated RBCs 15 H, Platelet Estimate DECREASED, Polychromasia 1+, Hypochromic-Microcytic 1+, Poikilocytosis 3+, Anisocytosis 1+, Microcytic Cells 1+, Target Cells FEW, Ovalocytes 1+, Ricardo Cells 1+, Elliptocytes 1+, Fld Total RBCs Counted 100 05/11/172154: PT 13.4 H, INR 1.28 H 05/11/172014: Urine Color YEL, Urine Clarity HAZY H, Urine pH 6.0, Ur Specific Candler 1.020, Urine Protein 30 H, Urine Ketones 15 H, Urine Nitrite NEG, Urine Bilirubin NEG @ICTO, Urine Urobilinogen 0.2, Ur Leukocyte Esterase MOD H, Ur Microscopic SEDIMENT EXAMINED, Urine RBC FEW H, Urine WBC 25-50 H, Ur Epithelial Cells FEW , Urine Bacteria MANY H, Urine Hemoglobin TRACE-INTACT, Urine Glucose NEG 05/11/171958: Haptoglobin Pending 05/11/171958: Anion Gap 21 H, Estimated GFR 19 L, BUN/Creatinine Ratio 25.0, Glucose 104 H, Calcium 9.2, Phosphorus 4.6 H, Magnesium 2.1, Iron 240 H, TIBC 275, Ferritin 9940.0 H, Total Bilirubin 1.4 H, Direct Bilirubin 0.9 H, AST 192 H, ALT 79 H, Alkaline Phosphatase 436 H, Lactate Dehydrogenase 2589 H, Troponin I < 0.01 , Total Protein 6.0 L, Albumin 3.4 L, Globulin 2.6, Albumin/Globulin Ratio 1.3 , Vitamin B12 730, Folate 4.7, CBC w Diff MAN DIFF ORDERED, RBC 2.90 L, MCV 67.0 L, MCH 21.5 L, MCHC 32.0 L, RDW 19.4 H, MPV 7.5, Gran % 42.6, Lymphocytes % 43.0, Monocytes % 12.5 H, Eosinophils % 1.9, Basophils % 0, Absolute Granulocytes 1.8, Segmented Neutrophils 48, Band Neutrophils 3, Absolute Lymphocytes 1.8, Lymphocytes 38, Monocytes 9, Absolute Monocytes 0.5, Eosinophils 2, Absolute Eosinophils 0.1, Absolute Basophils 0, Nucleated RBCs 20 H, Platelet Estimate DECREASED, Polychromasia 1+, Hypochromic-Microcytic 2+, Poikilocytosis 1+, Anisocytosis 2+, Microcytic Cells 2+, Retic Count 2.86 H, Hepatitis A IgM Ab NONREACTIVE, Hep Bs Antigen NONREACTIVE, Hep B Core IgM Ab Conf NONREACTIVE, Hepatitis C Antibody NONREACTIVE Microbiology 05/11 1999 NASOPHARYN: Influenza Virus A & B Rapid Smear - COMP Microbiology Date/Time Procedure - Status Source Growth 05/11 2018 Urine Culture - RECD URINE ROUT 05/11 1999 Influenza Virus A & B Rapid Smear - COMP NASOPHARYN Vital Signs Date Time Temp Pulse Resp B/P B/P Pulse O2 O2 Flow FiO2 Mean Ox Delivery Rate 05/12 1010 98.1 88 18 122/68 99 Room Air 05/12 0830 97.6 97 18 120/56 100 Room Air 05/12 0723 97.6 97 18 120/56 100 Room Air 05/12 0354 97.8 94 16 122/55 96 Room Air Room Air 05/12 0030 98.2 81 18 119/56 96 Room Air 05/12 0015 97.1 89 18 135/62 97 Room Air 05/11 2201 96.6 96 18 128/56 99 Room Air 02/21 1938 96.6 98 18 117/56 98 Room Air
[2017-05-12 13:51] VITALS: BP 138/64
--- NOTE | 2017-05-12 13:53 | Cons- Gastroenterology ---
General Information and HPI Consulting Request Date of Consult: 05/12/17 Requested By: Orestes Huang MD Reason for Consult: Increased LFTs. Anemia. Source of Information: patient, old records Exam Limitations: no limitations History of Present Illness: Ms. Rascon is a 76 year old female with a history of breast cancer who presented to last night with complaints of increasing lethargy and weakness. She notes that over the past several weeks she has been having increasing dyspnea on exertion and generalized weakness. She has had some constipation which is not far from her baseline and she is otherwise without any significant GI complaints. She denies any abdominal pain with eating, heartburn, or dysphagia. She is also without any rectal bleeding or melena. She has not noticed herself to be jaundiced or to have increasing abdominal distention or lower extremity swelling. She does admit to drinking approximately 2 glasses of wine a night, but as she has not been feeling well over the past few weeks she has not been drinking during this time. On presentation she was found to have renal insufficiency, increased LFTs, a normocytic anemia and a ct scan without IV contrast showed lytic bone lesions with a normal-appearing liver without biliary ductal dilatation. Allergies/Medications Allergies: Coded Allergies: NO KNOWN ALLERGIES (03/18/16) NKA PER ANTIBIOTIC SHEET - S Home Med List: Aspirin (Aspirin*) 325 MG TABLET 1 TAB PO DAILY PROPHO (Reported) Atorvastatin Calcium (Lipitor) 20 MG TABLET 1 TAB PO DAILY CHOLESTEROL ( Reported) Brimonidine Tartrate/Timolol (Combigan Eye Drops) (Unknown Strength) DROPS ( Unknown Dose) OPH BID EYE(S) (Reported) Hydrochlorothiazide 12.5 MG CAPSULE 1 CAP PO DAILY BP (Reported) Metformin HCl 500 MG TABLET 1 TAB PO BID DM (Reported) Metoprolol Succ XL (Toprol XL) (Unknown Strength) TAB 50 MG PO DAILY HTN ( Reported) Prednisolone Acetate (Pred Forte) (Unknown Strength) DROPS.SUSP (Unknown Dose) OPH BID EYE(S) (Reported) Ramipril (Altace) 10 MG CAPSULE 1 CAP PO DAILY BP (Reported) Verapamil HCl (Verapamil ER Pm) 200 MG CAP24H.PCT 1 CAP PO DAILY BP (Reported ) Current Medications: Current Medications Sig/Lori Start time Last Medication Dose Route Stop Time Status Admin Acetaminophen 500 MG Q8P PRN 05/12 0030 AC PO Acetaminophen 0 .STK-MED ONE 05/11 2202 DC IV Acetaminophen 1,000 MG ONCE ONE 05/11 2199 DC 05/11 N/A 1 UNIT IV 05/11 Atorvastatin Calcium 20 MG ONCE ONE 05/11 2199 DC 05/11 PO 05/11 Insulin Aspart 0 TIDAC 05/12 0800 DC SC Insulin Aspart 0 TIDAC 05/12 0245 AC SC Lidocaine 1 PAT Q24H 05/12 0030 AC 05/12 EXT 0155 Metformin HCl 500 MG ONCE ONE 05/11 2199 DC 05/11 PO 05/11 Metoprolol Succinate 50 MG DAILY 05/12 1000 AC 05/12 PO 1056 Ondansetron HCl 4 MG ONCE ONE 05/12 0515 DC 05/12 IV 05/12 0516 0513 Ondansetron HCl 0 .STK-MED ONE 05/12 0514 DC .ROUTE Polyethylene Glycol 17 GM ONCE ONE 05/12 0030 DC 05/12 PO 05/12 0031 0155 Senna/Docusate Sodium 1 TAB BID PRN 05/12 003 AC PO Sodium Chloride 1,000 ML .[id number] 05/12 0030 AC 05/12 IV 0155 Sodium Chloride 1,000 ML BOLUS ONE 05/11 2100 DC 05/11 IV 05/11 Sodium Chloride 1,000 ML BOLUS ONE 05/11 2000 DC 05/11 IV 05/11 Verapamil HCl 200 MG DAILY 05/12 1000 AC 05/12 PO 1056 Past History Travel History Traveled to [place] past 21 day No Medical History Neurological: NONE EENT: glaucoma Cardiovascular: hypertension, hyperlipidemia Respiratory: NONE Gastrointestinal: NONE Hepatic: NONE Renal: NONE Musculoskeletal: NONE Psychiatric: NONE Endocrine: diabetes Blood Disorders: thalassemia Cancer(s): breast cancer OPERATOR/ASSISTANT FOREMAN/Reproductive: NONE Surgical History Surgical History: non-contributory Psychosocial History ETOH Use: occasional use Review of Systems Review of Systems Constitutional: Reports: malaise, weakness. Denies: chills, diaphoresis, fever. EENTM: Denies: no symptoms. Cardiovascular: Denies: chest pain, edema, peripheral edema. Respiratory: Reports: short of breath. Denies: cough, hemoptysis, orthopnea. GI: Denies: see HPI. Genitourinary: Denies: no symptoms. Musculoskeletal: Denies: no symptoms. Skin: Denies: no symptoms. Neurological/Psychological: Denies: no symptoms. Hematologic/Endocrine: Denies: no symptoms. Immunologic/Allergic: Denies: no symptoms. All Other Systems: Reviewed and Negative Exam & Diagnostic Data Vital Signs and I&O Vital Signs Date Time Temp Pulse Resp B/P B/P Pulse O2 O2 Flow FiO2 Mean Ox Delivery Rate 05/12 1315 98 Room Air 05/12 1010 98.1 88 18 122/68 99 Room Air 05/12 0830 97.6 97 18 120/56 100 Room Air 05/12 0723 97.6 97 18 120/56 100 Room Air 05/12 0354 97.8 94 16 122/55 96 Room Air Room Air 05/12 0030 98.2 81 18 119/56 96 Room Air 05/12 0015 97.1 89 18 135/62 97 Room Air 05/11 2201 96.6 96 18 128/56 99 Room Air 05/11 1938 96.6 98 18 117/56 98 Room Air Intake & Output 05/12 1600 05/12 0400 05/11 1600 05/11 0400 05/10 1600 05/10 0400 Intake Total 120 1000 Output Total 200 Balance -80 1000 Intake, IV 1000 Intake, Oral 120 Number 1 Bowel Movements Output, Urine 200 Patient 175 lb Weight Weight Reported by Patient Measurement Method Physical Exam General Appearance: well developed/nourished, no apparent distress, comfortable Head: atraumatic, normal appearance Eyes: Bilateral: normal appearance. Ears, Nose, Throat: normal pharynx, normal ENT inspection, hearing grossly normal Neck: normal inspection, supple, full range of motion Respiratory: normal breath sounds, chest non-tender, no respiratory distress Cardiovascular: regular rate/rhythm Gastrointestinal: normal bowel sounds, soft, non-tender, no organomegaly Rectal: deferred Back: normal inspection, normal range of motion Extremities: normal inspection, no edema Neurologic/Psych: no motor/sensory deficits, awake, alert, oriented x 3 Skin: intact, normal color, warm/dry Results Pertinent Lab Results: Laboratory Tests 05/12 05/12 05/11 0600 0506 2155 Chemistry Sodium (137 - 145 mmol/L) Cancelled 141 Potassium (3.5 - 5.1 mmol/L) Cancelled 5.1 Chloride (98 - 107 mmol/L) Cancelled 113 H Carbon Dioxide (22 - 30 mmol/L) Cancelled 10 L Anion Gap (5 - 16) Cancelled 18 H BUN (7 - 17 mg/dL) Cancelled 54 H Creatinine (0.5 - 1.0 mg/dL) Cancelled 2.0 H Estimated GFR (>60 ml/min) 24 L BUN/Creatinine Ratio (7 - 25 %) Cancelled 27.0 H GGT (12 - 43 U/L) 182 H Coagulation PT (9.4 - 12.5 SEC) 13.4 H INR (0.90 - 1.19) 1.28 H APTT (25 - 37 SEC) 20 L Fibrinogen Activity (200 - 393 MG/DL) 314 D-Dimer High Sensitivty (0 - 243 ng/ml) 933 H Hematology CBC w Diff Cancelled MAN DIFF ORDERED WBC (4.8 - 10.8 /CUMM) Cancelled 5.0 RBC (4.20 - 5.40 /CUMM) Cancelled 3.25 L Hgb (12.0 - 16.0 G/DL) Cancelled 7.6 L Hct (37 - 47 %) Cancelled 23.6 L MCV (81.0 - 99.0 FL) Cancelled 72.6 L MCH (27.0 - 31.0 PG) Cancelled 23.4 L MCHC (33.0 - 37.0 G/DL) Cancelled 32.2 L RDW (11.5 - 14.5 %) Cancelled 24.9 H Plt Count (130 - 400 /CUMM) Cancelled 41 L MPV (7.4 - 10.4 FL) Cancelled 7.6 Segmented Neutrophils (42.2 - 75.2 %) 31 L Band Neutrophils (0.0 - 5.0 %) 1 Lymphocytes (20.5 - 51.1 %) 53 H Monocytes (1.7 - 9.3 %) 13 H Eosinophils (0 - 5.0 %) 1 Basophils (0.0 - 2.0 %) 1 Nucleated RBCs (0.0 - 0.0 /100WBC) 15 H Platelet Estimate (ADEQUATE) DECREASED Polychromasia 1+ Hypochromic-Microcytic 1+ Poikilocytosis 3+ Anisocytosis 1+ Microcytic Cells 1+ Target Cells FEW Ovalocytes 1+ [place] Cells 1+ Elliptocytes 1+ Other Body Source Fld Total RBCs Counted (%) 100 05/11 Hematology Haptoglobin Pending Urines Urine Color (YEL,AMB,STR) YEL Urine Clarity (CLEAR) HAZY H Urine pH (5.0 - 8.0) 6.0 Ur Specific [place] (1.001 - 1.035) 1.020 Urine Protein (NEG,<30 MG/DL) 30 H Urine Ketones (NEG) 15 H Urine Nitrite (NEG) NEG Urine Bilirubin (NEG) NEG@ICTO Urine Urobilinogen (0.1 - 1.0 EU/dl) 0.2 Ur Leukocyte Esterase (NEG) MOD H Ur Microscopic SEDIMENT EXAMINED Urine RBC (0 - 5 /HPF) FEW H Urine WBC (0 - 2 /HPF) 25-50 H Ur Epithelial Cells (NONE,FEW) FEW Urine Bacteria (NEG/NONE) MANY H Urine Hemoglobin (NEG) TRACE-INTACT Urine Glucose (N MG/DL) NEG 05/11 1958 Chemistry Sodium (137 - 145 mmol/L) 138 Potassium (3.5 - 5.1 mmol/L) 5.5 H Chloride (98 - 107 mmol/L) 105 Carbon Dioxide (22 - 30 mmol/L) 12 L Anion Gap (5 - 16) 21 H BUN (7 - 17 mg/dL) 60 H Creatinine (0.5 - 1.0 mg/dL) 2.5 H Estimated GFR (>60 ml/min) 19 L BUN/Creatinine Ratio (7 - 25 %) 25.0 Glucose (65 - 99 mg/dL) 104 H Calcium (8.4 - 10.2 mg/dL) 9.2 Phosphorus (2.5 - 4.5 mg/dL) 4.6 H Magnesium (1.6 - 2.3 mg/dL) 2.1 Iron (37 - 170 ug/dL) 240 H TIBC (265 - 497 ug/dL) 275 Ferritin (11.1 - 264 ng/mL) 9940.0 H Total Bilirubin (0.2 - 1.3 mg/dL) 1.4 H Direct Bilirubin (< 0.4 mg/dL) 0.9 H AST (14 - 36 U/L) 192 H ALT (9 - 52 U/L) 79 H Alkaline Phosphatase (<127 U/L) 436 H Lactate Dehydrogenase (313 - 618 U/L) 2589 H Troponin I (< 0.11 ng/ml) < 0.01 Total Protein (6.3 - 8.2 g/dL) 6.0 L Albumin (3.5 - 5.0 g/dL) 3.4 L Globulin (1.9 - 4.2 gm/dL) 2.6 Albumin/Globulin Ratio (1.1 - 2.2 %) 1.3 Vitamin B12 (239 - 931 pg/mL) 730 Folate (2.76 - 20.0 ng/mL) 4.7 Hematology CBC w Diff MAN DIFF ORDERED WBC (4.8 - 10.8 /CUMM) 3.6 L RBC (4.20 - 5.40 /CUMM) 2.90 L Hgb (12.0 - 16.0 G/DL) 6.2 *L Hct (37 - 47 %) 19.4 *L MCV (81.0 - 99.0 FL) 67.0 L MCH (27.0 - 31.0 PG) 21.5 L MCHC (33.0 - 37.0 G/DL) 32.0 L RDW (11.5 - 14.5 %) 19.4 H Plt Count (130 - 400 /CUMM) 35 L MPV (7.4 - 10.4 FL) 7.5 Gran % (42.2 - 75.2 %) 42.6 Lymphocytes % (20.5 - 51.1 %) 43.0 Monocytes % (1.7 - 9.3 %) 12.5 H Eosinophils % (0 - 5 %) 1.9 Basophils % (0.0 - 2.0 %) 0 Absolute Granulocytes (1.4 - 6.5 /CUMM) 1.8 Segmented Neutrophils (42.2 - 75.2 %) 48 Band Neutrophils (0.0 - 5.0 %) 3 Absolute Lymphocytes (1.2 - 3.4 /CUMM) 1.8 Lymphocytes (20.5 - 51.1 %) 38 Monocytes (1.7 - 9.3 %) 9 Absolute Monocytes (0.10 - 0.60 /CUMM) 0.5 Eosinophils (0 - 5.0 %) 2 Absolute Eosinophils (0.0 - 0.7 /CUMM) 0.1 Absolute Basophils (0.0 - 0.2 /CUMM) 0 Nucleated RBCs (0.0 - 0.0 /100WBC) 20 H Platelet Estimate (ADEQUATE) DECREASED Polychromasia 1+ Hypochromic-Microcytic 2+ Poikilocytosis 1+ Anisocytosis 2+ Microcytic Cells 2+ Retic Count (0.5 - 2.0 %) 2.86 H Serology Hepatitis A IgM Ab (NONREACTIVE) NONREACTIVE Hep Bs Antigen (NONREACTIVE) NONREACTIVE Hep B Core IgM Ab Conf (NONREACTIVE) NONREACTIVE Hepatitis C Antibody (NONREACTIVE) NONREACTIVE Imaging/Other Studies: SERVICE DATE: 05/12/17- EXAM TYPE: CAT - CT ABD & PELVIS W/O IV CONTRAS; CT CHEST WO IV CONTRAST EXAMINATION: CT CHEST WITHOUT CONTRAST CT ABDOMEN AND PELVIS WITHOUT CONTRAST CLINICAL INFORMATION: Shortness of breath, cough. Transaminitis, weight loss. COMPARISON: None. TECHNIQUE: Multidetector volumetric imaging was performed through the chest, abdomen and pelvis without contrast. Sagittal and coronal reformatted images were obtained on the technologist's workstation. Axial MIP volume rendering provided. DLP: 498 mGy-cm. FINDINGS: CHEST: Lungs: The central airways are patent. Minimal groundglass opacity seen in the lingula along the major fissure. No dense consolidation. No pneumothorax or pleural effusion. Mild mosaic attenuation seen in the upper lobes anteriorly. Mediastinum: The heart is normal in size. No pericardial effusion. Prominent appearance of the main pulmonary artery measuring 3.7 cm suggesting pulmonary artery hypertension. The visualized thyroid gland is unremarkable. No mediastinal lymphadenopathy. Chest Wall/Axilla: There is a nodular density in the upper outer quadrant of the left breast with multiple surrounding surgical clips. No axillary lymphadenopathy. ABDOMEN/PELVIS: Liver, Gallbladder, Biliary Tree: The liver is normal in size, shape, and attenuation. No focal hepatic lesion or biliary ductal dilatation is present. The gallbladder is unremarkable with no evidence of radiopaque gallstones, gallbladder wall thickening, or pericholecystic inflammatory changes. Pancreas: Unremarkable. Spleen: Unremarkable. Adrenal Glands: Unremarkable. Kidneys and Ureters: The kidneys are normal in size, shape, and attenuation. No hydronephrosis, hydroureter or calculi seen. No perinephric stranding. Bladder: Unremarkable. Gastrointestinal Tract: The stomach is unremarkable. The small bowel is normal in caliber. No obstruction. Scattered colonic diverticulosis without diverticulitis. Stool distends the rectum. No colonic wall thickening or inflammatory change. No free air or free fluid. Abdominal Wall: No hernia is demonstrated. Lymphovascular Structures: Lymph nodes: Normal. Vascular: Normal caliber aorta. Moderate atherosclerotic calcifications. Pelvic Viscera: The uterus and adnexa are unremarkable. OSSEOUS STRUCTURES: There are diffuse sclerotic lesions throughout the osseous structures suggestive of metastatic disease. This involves all of the visualized osseous structures on the examination. Mild compression deformity of the L3 vertebral body with approximately 50% loss of vertebral body height anteriorly. DISH. IMPRESSION: 1. Diffuse sclerotic lesions throughout the osseous structures suggestive of metastatic disease. Mild compression deformity of the L3 vertebral body of uncertain chronicity. 2. Minimal groundglass opacities in the lungs. A component of mild edema is possible. 3. No acute inflammatory changes of the abdomen or pelvis. Scattered diverticulosis without diverticulitis. Assessment/Plan Assessment/Recommendations: Assessment: Ms. Rascon is a 76-year-old female with a remote history of breast cancer who presents with increasing lethargy and dyspnea on exertion of uncertain etiology, but considering her anemia, renal insufficiency, and lytic bone lesions it is all concerning for multiple myeloma or a another malignancy with bone metastases. While myeloma would not necessarily explain her increased LFTs it is possible that he may be increased from extra medullary hematopoiesis. It is also possible that she could have liver metastases which may not of been appreciated on her noncontrast CAT scan. Some of her increased alkaline phosphatase may be from bone considering a lytic bone lesions, but as her GGT is elevated along with her other transaminases there is likely some primary infiltrative liver disease. Of note, she does admit to drinking on a daily basis and her AST and ALT ratio is consistent with an elevation from alcohol however it does not sound as though she drinks enough to increase her LFTs and she has not been drinking for the past few weeks which makes alcohol an unlikely etiology of the increased liver tests. She is also anemic which is likely secondary to her lytic bone lesions considering she is without overt GI bleeding and I therefore do not feel an endoscopic workup is necessary at this time. Recommendations: 1. Check a right upper quadrant ultrasound. 2. If renal function improves would consider repeating imaging with contrast to evaluate for any infiltrative liver lesions. 3. Would check a viral hepatitis panel. 4. Follow daily LFTs. 5. Recommend checking a calcium, SPEP/UPEP and would follow up oncology recommendations for any additional blood tests and a possible bone marrow aspiration to make a definitive diagnosis. I will continue to follow this patient and make further recommendations based on her clinical course and results of repeat blood work. Problem List: 1. Transaminitis 2. Anemia 3. JOSUE (acute kidney injury) Copies To: Orestes Huang MD Consult Acknowledgment - Thank you for your consult request.
[2017-05-12 16:25] LABS: HEMATOCRIT 23.4 % (37-47); MEAN CORPUSCULAR HGB 23.4 PG (27.0-31.0); MEAN PLATELET VOLUME 7.4 FL (7.4-10.4); RBC DISTRIBUTION WIDTH 24.1 % (11.5-14.5); WHITE BLOOD CELL COUNT 3.9 /CUMM (4.8-10.8)
[2017-05-12 16:43] LABS: PLATELET COUNT 38 /CUMM (130-400)
[2017-05-12 17:23] VITALS: BP 120/70
[2017-05-12 22:14] VITALS: BP 110/58
[2017-05-13 07:28] VITALS: BP 140/68
[2017-05-13 08:08] LABS: MEAN CORPUSCULAR HGB 23.7 PG (27.0-31.0); PLATELET COUNT 32 /CUMM (130-400)
[2017-05-13 08:42] LABS: MEAN PLATELET VOLUME 7.7 FL (7.4-10.4); RBC DISTRIBUTION WIDTH 25.3 % (11.5-14.5); RED BLOOD CELL CT 2.68 /CUMM (4.20-5.40); WHITE BLOOD CELL COUNT 2.9 /CUMM (4.8-10.8)
--- NOTE | 2017-05-13 09:58 | PN- Hematology ---
Subjective Subjective: She denies any new issues at the moment. She denies any fever or chills. She has no nausea or vomiting. Review of Systems Constitutional: Denies: chills, fever. Cardiovascular: Denies: chest pain. Gastrointestinal: Denies: abdominal pain. Musculoskeletal: Denies: back pain. Skin: Denies: jaundice. Neurological/Psychological: Denies: anxiety, confusion. Hematologic/Endocrine: Reports: bruising. Denies: bleeding. All Other Systems: Reviewed and Negative Objective Vital Signs and I&Os Vital Signs Date Time Temp Pulse Resp B/P B/P Pulse O2 O2 Flow FiO2 Mean Ox Delivery Rate 05/13 08 98.2 90 20 140/68 05/13 0728 98.2 90 20 140/68 95 Room Air 05/12 2214 97.7 94 18 110/58 98 Room Air 05/12 1723 97.9 85 19 120/70 96 Room Air 05/12 1615 98.1 88 20 112/58 98 Room Air 05/12 1351 98.4 94 18 138/64 96 Room Air 05/12 1315 98 Room Air 05/12 1010 98.1 88 18 122/68 99 Room Air Intake & Output 05/13 1600 05/13 0800 05/13 0000 05/12 1600 05/12 0800 05/12 0000 Intake Total 920 016 010 0720 Output Total 300 240 200 Balance 620 430 -80 1000 Intake, IV 804 538 0369 Intake, Oral 220 100 120 Number 0 1 Bowel Movements Output, Urine 300 240 200 Patient 79.379 kg 79.379 kg Weight Weight Estimated Reported by Patient Measurement Method Physical Exam: General Appearance: well developed/nourished, no apparent distress, alert, awake , comfortable, obese Respiratory: normal breath sounds, chest non-tender, no respiratory distress, quiet respiration Cardiovascular: regular rate/rhythm Gastrointestinal: normal bowel sounds, soft, non-tender, no organomegaly Extremities: no edema Neurologic/Psych: awake, alert, disoriented to year Skin: ecchymosis (left antecubial) Lymphatic: no adenopathy Current Medications: Current Medications Sig/Lori Start time Last Medication Dose Route Stop Time Status Admin Acetaminophen 500 MG Q8P PRN 05/12 0030 AC 05/12 PO 1719 Insulin Aspart 0 TIDAC 05/12 0245 AC SC Lidocaine 1 PAT Q24H 05/12 0030 AC 05/13 EXT 0028 Metoprolol Succinate 50 MG DAILY 05/12 1000 AC 05/13 PO 0822 Morphine Sulfate 2 MG ONCE ONE 05/12 1845 DC 05/12 IV 05/12 184 1903 Senna/Docusate Sodium 1 TAB BID PRN 05/12 0030 AC PO Sodium Chloride 1,000 ML .[id number] 05/12 0030 AC 05/13 IV 0031 Verapamil HCl 200 MG DAILY 05/12 1000 AC 05/12 PO 1056 Results Last 24 Hours of Lab Results: Laboratory Tests 05/13 05/12 0615 1610 Chemistry Sodium (137 - 145 mmol/L) 142 Potassium (3.5 - 5.1 mmol/L) 5.0 Chloride (98 - 107 mmol/L) 115 H Carbon Dioxide (22 - 30 mmol/L) 14 L Anion Gap (5 - 16) 12 BUN (7 - 17 mg/dL) 48 H Creatinine (0.5 - 1.0 mg/dL) 1.7 H Estimated GFR (>60 ml/min) 29 L BUN/Creatinine Ratio (7 - 25 %) 28.2 H Total Bilirubin (0.2 - 1.3 mg/dL) 1.0 Direct Bilirubin (< 0.4 mg/dL) 0.7 H AST (14 - 36 U/L) 184 H ALT (9 - 52 U/L) 69 H Alkaline Phosphatase (<127 U/L) 345 H Total Protein (6.3 - 8.2 g/dL) 4.8 L Albumin (3.5 - 5.0 g/dL) 2.5 L Hematology CBC w Diff MAN DIFF ORDERED MAN DIFF ORDERED WBC (4.8 - 10.8 /CUMM) Pending 3.9 L RBC (4.20 - 5.40 /CUMM) Pending 3.30 L Hgb (12.0 - 16.0 G/DL) Pending 7.7 L Hct (37 - 47 %) Pending 23.4 L MCV (81.0 - 99.0 FL) Pending 71.0 L MCH (27.0 - 31.0 PG) Pending 23.4 L MCHC (33.0 - 37.0 G/DL) Pending 33.0 RDW (11.5 - 14.5 %) Pending 24.1 H Plt Count (130 - 400 /CUMM) Pending 38 L MPV (7.4 - 10.4 FL) Pending 7.4 Segmented Neutrophils (42.2 - 75.2 %) Pending 37 L Band Neutrophils (0.0 - 5.0 %) 4 Lymphocytes (20.5 - 51.1 %) 45 Monocytes (1.7 - 9.3 %) 10 H Eosinophils (0 - 5.0 %) 2 Basophils (0.0 - 2.0 %) 1 Metamyelocytes (0.0 - 1.0 %) 1 Nucleated RBCs (0.0 - 0.0 /100WBC) 8 H Platelet Estimate (ADEQUATE) DECREASED Polychromasia 2+ Hypochromic-Microcytic 2+ Poikilocytosis 1+ Anisocytosis 2+ Microcytic Cells 2+ Elliptocytes FEW Schistocytes FEW Assessment/Plan Hematology Assessment/Recommendations: Ms. Rascon is a 76-year-old female with history of thalassemia, breast cancer status post lumpectomy, chemotherapy, radiation, and endocrine therapy, hypertension, hyperlipidemia, skin cancer of the left leg S/P excision on 2016, sigmoid polyp s/p polypectomy on 10/2010, diverticulosis, and internal hemorrhoid who presented to the hospital with weakness and exertional dyspnea for 1 week. On admission, she was noted to have worsening anemia, new renal failure, and thrombocytopenia. Creatinine was 2.5. She was noted to have elevated ferritin and LDH. Bilirubin was slightly elevated at 1.4 (normal 1.3). LFT was also elevated. She does have a somewhat elevated LFT at baseline from outpatient laboratory. Folate and B12 levels are normal. KERWIN is negative. Peripheral blood smear is abnormal with numerous target cells, ovalocytes, jacky cell, elliptocytes, anisocytosis, poikilocytosis, basophilic stippling, tear drops cells, rare schistocyte, and nucleated RBC. Creatinine has improved. This make TTP less likely. Bilirubin is normalizing. MAHA is less likely. Her blood counts have remained stable but low. DIC is less likely. This should be rechecked to trend patient. It is still concerning she has an underlying bone marrow process. She may need bone marrow biopsy to rule out malignant involvement. Myeloma is less likely with improving renal function. SPEP is pending. Bone scan is also pending. CBC pending today. Pancytopenia: -repeat CBC -[id number] and SPEP pending -if counts remains the same today, she will need bone marrow biopsy Sclerotic bone lesion: -obtain bone scan -bone biopsy as above JOSUE: -continue hydration -avoid nephrotoxic medication Breast cancer: -no obvious recurrence -follow up with Dr. Aiken as scheduled on 05/25/2017 Please call [phone] with any questions or concerns. Problem List: 1. Anemia 2. Thrombocytopenia 3. JOSUE (acute kidney injury) 4. Bone lesion
--- NOTE | 2017-05-13 10:54 | PN- Att Addend ---
Attending Addendum Attending Brief Note Patient looking and feeling a little better still pale looking ambulating to the bathroom back and forth to the bed with no problems. Vital signs are stable no fever. CBC slightly improved after transfusion. BUN and creatinine slightly improved. Workup has per hematology/oncology unit monitor labs closely. Continue to get out of bed if possible. Intake & Output 05/13 1600 05/13 0400 05/12 1600 05/12 0400 05/11 1600 05/11 0400 Intake Total 920 857 161 7481 Output Total 300 240 200 Balance 620 430 -80 1000 Intake, IV 796 546 9852 Intake, Oral 220 100 120 Number 0 1 Bowel Movements Output, Urine 300 240 200 Patient 175 lb 175 lb Weight Weight Estimated Reported by Patient Measurement Method Current Medications Sig/Lori Start time Last Medication Dose Route Stop Time Status Admin Acetaminophen 500 MG Q8P PRN 05/12 0030 AC 05/12 PO 1719 Insulin Aspart 0 TIDAC 05/12 0245 AC SC Lidocaine 1 PAT Q24H 05/12 0030 AC 05/13 EXT 0028 Metoprolol Succinate 50 MG DAILY 05/12 1000 AC 05/13 PO 0822 Morphine Sulfate 2 MG ONCE ONE 05/12 1845 DC 05/12 IV 05/12 1846 1903 Senna/Docusate Sodium 1 TAB BID PRN 05/12 0030 AC PO Sodium Chloride 1,000 ML .[id number] 05/12 0030 AC 05/13 IV 0031 Verapamil HCl 200 MG DAILY 05/12 1000 AC 05/12 PO 1056 Laboratory Tests 05/13/17 0615: Anion Gap 12, Estimated GFR 29 L, BUN/Creatinine Ratio 28.2 H, Total Bilirubin 1.0, Direct Bilirubin 0.7 H, AST 184 H, ALT 69 H, Alkaline Phosphatase 345 H , Total Protein 4.8 L, Albumin 2.5 L, CBC w Diff MAN DIFF ORDERED, WBC Pending , RBC Pending, Hgb Pending, Hct Pending, MCV Pending, MCH Pending, MCHC Pending, RDW Pending, Plt Count Pending, MPV Pending, Segmented Neutrophils Pending 05/12/17 1610: CBC w Diff MAN DIFF ORDERED, RBC 3.30 L, MCV 71.0 L, MCH 23.4 L, MCHC 33.0, RDW 24.1 H, MPV 7.4, Segmented Neutrophils 37 L, Band Neutrophils 4, Lymphocytes 45, Monocytes 10 H, Eosinophils 2, Basophils 1, Metamyelocytes 1, Nucleated RBCs 8 H, Platelet Estimate DECREASED, Polychromasia 2+, Hypochromic- Microcytic 2+, Poikilocytosis 1+, Anisocytosis 2+, Microcytic Cells 2+, Elliptocytes FEW, Schistocytes FEW 05/12/17 0600: Sodium Cancelled, Potassium Cancelled, Chloride Cancelled, Carbon Dioxide Cancelled, Anion Gap Cancelled, BUN Cancelled, Creatinine Cancelled, BUN/ Creatinine Ratio Cancelled, CBC w Diff Cancelled, WBC Cancelled, RBC Cancelled, Hgb Cancelled, Hct Cancelled, MCV Cancelled, MCH Cancelled, MCHC Cancelled, RDW Cancelled, Plt Count Cancelled, MPV Cancelled 05/12/17 0506: Anion Gap 18 H, Estimated GFR 24 L, BUN/Creatinine Ratio 27.0 H, Calcium 9.1, GGT 182 H 05/12/17 0506: Prot Electrophoresis Pending, Total Protein (PEP) Pending, Albumin % (PEP) Pending, [id number] Pending, Sxweh-3-Lvefbkiyc Pending, [id number] Pending, Rwcx-3-Ecacopjx Pending, Gamma Globulins Pending, Abnorm Protein Band 1 Pending, Abnorm Protein Band 2 Pending, Abnorm Protein Band 3 Pending, APTT 20 L, Fibrinogen Activity 314, D-Dimer High Sensitivty 933 H, CBC w Diff MAN DIFF ORDERED, RBC 3.25 L, MCV 72.6 L, MCH 23.4 L, MCHC 32.2 L, RDW 24.9 H, MPV 7.6, Segmented Neutrophils 31 L, Band Neutrophils 1, Lymphocytes 53 H, Monocytes 13 H, Eosinophils 1, Basophils 1, Nucleated RBCs 15 H, Platelet Estimate DECREASED, Polychromasia 1+, Hypochromic-Microcytic 1+, Poikilocytosis 3+, Anisocytosis 1+, Microcytic Cells 1+, Target Cells FEW, Ovalocytes 1+, [place] Cells 1+, Elliptocytes 1+, Fld Total RBCs Counted 100 05/11/17 2155: PT 13.4 H, INR 1.28 H 05/11/17 2015: Urine Color YEL, Urine Clarity HAZY H, Urine pH 6.0, Ur Specific Meta 1.020, Urine Protein 30 H, Urine Ketones 15 H, Urine Nitrite NEG, Urine Bilirubin NEG @ICTO, Urine Urobilinogen 0.2, Ur Leukocyte Esterase MOD H, Ur Microscopic SEDIMENT EXAMINED, Urine RBC FEW H, Urine WBC 25-50 H, Ur Epithelial Cells FEW , Urine Bacteria MANY H, Urine Hemoglobin TRACE-INTACT, Urine Glucose NEG 05/11/171958: Haptoglobin Pending 05/11/171958: Anion Gap 21 H, Estimated GFR 19 L, BUN/Creatinine Ratio 25.0, Glucose 104 H, Calcium 9.2, Phosphorus 4.6 H, Magnesium 2.1, Iron 240 H, TIBC 275, Ferritin 9940.0 H, Total Bilirubin 1.4 H, Direct Bilirubin 0.9 H, AST 192 H, ALT 79 H, Alkaline Phosphatase 436 H, Lactate Dehydrogenase 2589 H, Troponin I < 0.01 , Total Protein 6.0 L, Albumin 3.4 L, Globulin 2.6, Albumin/Globulin Ratio 1.3 , Vitamin B12 730, Folate 4.7, CBC w Diff MAN DIFF ORDERED, RBC 2.90 L, MCV 67.0 L, MCH 21.5 L, MCHC 32.0 L, RDW 19.4 H, MPV 7.5, Gran % 42.6, Lymphocytes % 43.0, Monocytes % 12.5 H, Eosinophils % 1.9, Basophils % 0, Absolute Granulocytes 1.8, Segmented Neutrophils 48, Band Neutrophils 3, Absolute Lymphocytes 1.8, Lymphocytes 38, Monocytes 9, Absolute Monocytes 0.5, Eosinophils 2, Absolute Eosinophils 0.1, Absolute Basophils 0, Nucleated RBCs 20 H, Platelet Estimate DECREASED, Polychromasia 1+, Hypochromic-Microcytic 2+, Poikilocytosis 1+, Anisocytosis 2+, Microcytic Cells 2+, Retic Count 2.86 H, Hepatitis A IgM Ab NONREACTIVE, Hep Bs Antigen NONREACTIVE, Hep B Core IgM Ab Conf NONREACTIVE, Hepatitis C Antibody NONREACTIVE Microbiology 05/11 2017 URINE ROUT: Urine Culture - RES GRAM NEGATIVE RODS 05/11 1999 NASOPHARYN: Influenza Virus A & B Rapid Smear - COMP Microbiology Date/Time Procedure - Status Source Growth 05/11 2017 Urine Culture - RES URINE ROUT GRAM NEGATIVE RODS 05/11 1999 Influenza Virus A & B Rapid Smear - COMP NASOPHARYN Vital Signs Date Time Temp Pulse Resp B/P B/P Pulse O2 O2 Flow FiO2 Mean Ox Delivery Rate 05/13 08 98.2 90 20 140/68 05/13 0728 98.2 90 20 140/68 95 Room Air 05/12 2214 97.7 94 18 110/58 98 Room Air 05/12 1723 97.9 85 19 120/70 96 Room Air 05/12 1615 98.1 88 20 112/58 98 Room Air 05/12 1351 98.4 94 18 138/64 96 Room Air 05/12 1315 98 Room Air
--- NOTE | 2017-05-13 11:05 | PN- Housestaff ---
Subjective Follow-up For: Pancytopenia JOSUE DM transaminitis Subjective: Patient visited today, was lying in bed comfortably in no acute distress, was alert and oriented. reported imprved symptoms. No fever or chills, no shortness of breathing, no chest pain, no other events. Blood count was low, 1 PRBC was transfused, BM biopsy was ordered by IR. IR nurse called informed need to have PLT transfused before procedure, it would take 2 hours to get PLT from [facility] and BM biopsy could not be done today. It was noted that this procedure could be done as outpatient. This would be needed for evaluation of pancytopenia, liver lesions can be biopsied, but most likely breast cancer. Review of Systems Constitutional: Reports: see HPI. Objective Last 24 Hrs of Vital Signs/I&O Vital Signs Date Time Temp Pulse Resp B/P B/P Pulse O2 O2 Flow FiO2 Mean Ox Delivery Rate 05/13 821 98.2 90 20 140/68 05/13 0728 98.2 90 20 140/68 95 Room Air 05/12 2214 97.7 94 18 110/58 98 Room Air 05/12 1723 97.9 85 19 120/70 96 Room Air 05/12 1615 98.1 88 20 112/58 98 Room Air 05/12 1351 98.4 94 18 138/64 96 Room Air 05/12 1315 98 Room Air Intake & Output 05/13 1600 05/13 0800 05/13 0000 Intake Total 920 670 Output Total 300 240 Balance 620 430 Intake, IV 700 570 Intake, Oral 220 100 Number 0 Bowel Movements Output, Urine 300 240 Physical Exam General Appearance: Alert, Oriented X3, Cooperative, No Acute Distress HEENT: Atraumatic, EOMI, Mucous Membr. moist/pink Cardiovascular: Normal S1, Normal S2 Lungs: Normal Air Movement Abdomen: Soft, No Tenderness Neurological: Normal Speech Current Medications: Current Medications Sig/Lori Start time Last Medication Dose Route Stop Time Status Admin Acetaminophen 500 MG Q8P PRN 05/12 0030 AC 05/13 PO 1059 Insulin Aspart 0 TIDAC 05/12 0245 AC SC Lidocaine 1 PAT Q24H 05/12 0030 AC 05/13 EXT 0028 Metoprolol Succinate 50 MG DAILY 05/12 1000 AC 05/13 PO 0822 Morphine Sulfate 2 MG ONCE ONE 05/12 1845 DC 05/12 IV 05/12 1845 1903 Senna/Docusate Sodium 1 TAB BID PRN 05/12 0030 AC PO Sodium Chloride 1,000 ML .[id number] 05/12 0030 AC 05/13 IV 0031 Verapamil HCl 200 MG DAILY 05/12 1000 AC 05/12 PO 1056 Last 24 Hrs of Lab/Jim Results Last 24 Hrs of Labs/Mics: Laboratory Tests 05/13/17 0615: Anion Gap 12, Estimated GFR 29 L, BUN/Creatinine Ratio 28.2 H, Total Bilirubin 1.0, Direct Bilirubin 0.7 H, AST 184 H, ALT 69 H, Alkaline Phosphatase 345 H , Total Protein 4.8 L, Albumin 2.5 L, CBC w Diff MAN DIFF ORDERED, WBC Pending , RBC Pending, Hgb Pending, Hct Pending, MCV Pending, MCH Pending, MCHC Pending, RDW Pending, Plt Count Pending, MPV Pending, Segmented Neutrophils Pending 05/12/17 1610: CBC w Diff MAN DIFF ORDERED, RBC 3.30 L, MCV 71.0 L, MCH 23.4 L, MCHC 33.0, RDW 24.1 H, MPV 7.4, Segmented Neutrophils 37 L, Band Neutrophils 4, Lymphocytes 45, Monocytes 10 H, Eosinophils 2, Basophils 1, Metamyelocytes 1, Nucleated RBCs 8 H, Platelet Estimate DECREASED, Polychromasia 2+, Hypochromic- Microcytic 2+, Poikilocytosis 1+, Anisocytosis 2+, Microcytic Cells 2+, Elliptocytes FEW, Schistocytes FEW Assessment/Plan Assessment: 76 years old female with past medical history of hypertension, hyperlipidemia, skin cancer of the left leg S/P excision on 08/2016,BRBPR and sigmoid polyp S/P polypectomy on 10/2010, diverticulosis, internal hemorrhoid, breast cancer S/P lumpectomy on 10/2010 after which she was treated with chemotherapy and radiotherapy. 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 Other possibilities include leukemia/ lymphoma with cold autoimmune hemolysis. -Continue Admit to general medical floor -Patient received 1 unit of packed RBCs in the ED -Follow up on Ferritin, TIBC, Delmy' test, reticulocyte count, vitamin B12, folic acid -Follow Hematology consult appreciated - Follow GI consult appreciated - Continue Close monitoring of CBC -Vitals every shift - SPEP and UPEP - calcium level - BMB pafter Plt transfusion most likely in outpatient #History of diabetes mellitus: Hold home meds Insulin sliding scale Fingerstick glucose #JOSUE/hyperkalemia Differential diagnosis includes a prerenal due to dehydration and poor oral intake, analgesic nephropathy, multiple myeloma. Gentle IV hydration Avoid nephrotoxic medication Close monitoring of kidney function Intake and output # Transaminitis: Differential diagnosis includes liver metastasis, analgesic side effect, GI consult appreciated Monitor of liver function test RUQ ultrasound: 1. Abnormal sonographic appearance of the liver showing multifocal intrahepatic hypoechoic abnormalities, most consistent with metastatic disease. 2. Minimal nonspecific gallbladder wall thickening likely represents reactive changes from adjacent liver disease. - daily LFT # Sclerotic lesions in CT scan Back pain: Since the patient has both renal impairment and hepatic impairment will avoid pain meds as possible Lidocaine patch Tylenol by mouth 500 mg every 8 when necessary - Bone scan #History of chronic medical condition includes hypertension, hyperlipidemia Continue home meds including metoprolol, verapamil Patient is full code DVT prophylaxis with Alps Problem List: 1. Bone lesion 2. Pancytopenia 3. Transaminitis Pain Ratin Pain Location: None Pain Goal: Pain 4 or less Pain Plan: Continue current plan Tomorrow's Labs & Rationales: CBC BEP
[2017-05-13 12:55] LABS: HEMATOCRIT 19.3 % (37-47)
--- NOTE | 2017-05-13 13:05 | ULTRASOUND REPORT ---
EXAMINATION: US ABDOMEN LIMITED CLINICAL INFORMATION: Transaminitis. Weight loss. History of cancer. COMPARISON: CT of the chest, abdomen and pelvis without contrast done on 05/12/2017. TECHNIQUE: Real-time imaging of the right upper quadrant abdominal viscera. FINDINGS: PANCREAS: Normal. LIVER: Numerous intrahepatic focal hypoechoic lesions are identified throughout the entire liver, most consistent with metastatic disease. GALLBLADDER: Minimal gallbladder wall thickening is noted measuring 0.5 cm at its maximum dimension possibly represent reactive changes from adjacent hepatic disease. The gallbladder is physiologically distended without evidence of stones, sludge, polyps or pericholecystic fluid. No sonographic Chaudhary's sign was noted at the time of the examination. COMMON BILE DUCT: Normal in caliber measuring 0.4 cm in diameter. RIGHT KIDNEY: Slightly lobulated parenchyma is noted. No hydronephrosis. No renal calculi or focal parenchymal lesions. The kidney measures 11.5 cm in maximum dimension. FREE FLUID: None. IMPRESSION: 1. Abnormal sonographic appearance of the liver showing multifocal intrahepatic hypoechoic abnormalities, most consistent with metastatic disease. 2. Minimal nonspecific gallbladder wall thickening likely represents reactive changes from adjacent liver disease.
--- NOTE | 2017-05-13 14:38 | PN- Gastroenterology ---
Assessment/Plan GI Assessment/Recommendations: Assessment: Ms. Villagomez is a 76-year-old female admitted with fatigue, anemia, increased LFTs and worsening renal insufficiency of uncertain etiology, but considering her ultrasound done this morning is quite likely secondary to metastatic disease presumably breast cancer which she has a remote history of. While her hemoglobin initially improved with transfusion it is back down today, but as she is without any signs of overt GI bleeding I do not feel a endoscopic workup is warranted at this time. As her hemoglobin has fallen significantly without evidence of overt GI bleeding I suspect she may be hemolyzing or that her bone marrow may not be working secondary to infiltrative disease of her marrow which is likely from tumor. Hematology apparently is planning for a bone marrow aspiration and it would not be unreasonable to obtain a liver biopsy if that does not yield a diagnosis. Recommendations: 1. Follow daily LFTs. 2. Transfuse to maintain hemoglobin greater than 7. 3. Follow up hematology recommendations for workup of anemia with a possible bone marrow aspiration and would also give consideration to working her up for a hemolytic anemia 4. Consideration may ultimately given for a liver biopsy to confirm the diagnosis if the bone marrow aspiration is unhelpful. I will sign off at this time please recontact GI for any new GI issues that may arise on this admission. Problem List: 1. Liver lesion 2. Bone lesion 3. Transaminitis 4. Elevated bilirubin 5. Anemia Subjective Subjective: Pt without any new complaints. s/p US and transfusion yesterday. no brbpr, melena or vomiting. Objective Vital Signs and I&Os Vital Signs Date Time Temp Pulse Resp B/P B/P Pulse O2 O2 Flow FiO2 Mean Ox Delivery Rate 05/13 0822 98.2 90 20 140/68 05/13 0728 98.2 90 20 140/68 95 Room Air 05/12 2214 97.7 94 18 110/58 98 Room Air 05/12 1723 97.9 85 19 120/70 96 Room Air 05/12 1615 98.1 88 20 112/58 98 Room Air Intake & Output 05/13 1600 05/13 0400 05/12 1600 05/12 0400 05/11 1600 05/11 0400 Intake Total 920 382 096 6514 Output Total 300 240 200 Balance 620 430 -80 1000 Intake, IV 745 214 1189 Intake, Oral 220 100 120 Number 0 1 Bowel Movements Output, Urine 300 240 200 Patient 175 lb 175 lb Weight Weight Estimated Reported by Patient Measurement Method Physical Exam General Appearance: well developed/nourished, no apparent distress, alert Head: atraumatic, normal appearance Neck: supple Respiratory: normal breath sounds, chest non-tender, no respiratory distress Cardiovascular: regular rate/rhythm Abdomen: normal bowel sounds, soft, non-tender Extremities: normal inspection, no edema Skin: intact, normal color, warm/dry Current Medications: Current Medications Sig/Lori Start time Last Medication Dose Route Stop Time Status Admin Acetaminophen 500 MG Q8P PRN 05/12 0030 AC 05/13 PO 1059 Diclofenac Sodium 1 JULIO 4 TIMES/DAY 05/13 1400 AC 05/13 TOP 1335 Hydromorphone HCl 2 MG ONCE ONE 05/13 1230 DC 05/13 PO 05/13 1231 1334 Insulin Aspart 0 TIDAC 05/12 0245 AC SC Lidocaine 1 PAT Q24H 05/12 0030 AC 05/13 EXT 0028 Metoprolol Succinate 50 MG DAILY 05/12 1000 AC 05/13 PO 0822 Morphine Sulfate 2 MG ONCE ONE 05/12 1845 DC 05/12 IV 05/12 1846 1903 Senna/Docusate Sodium 1 TAB BID PRN 05/12 0030 AC PO Sodium Chloride 1,000 ML .[id number] 05/12 0030 AC 05/13 IV 0031 Verapamil HCl 200 MG DAILY 05/12 1000 AC 05/12 PO 1056 Results Pertinent Lab Results: Laboratory Tests 05/13 05/12 0615 1610 Chemistry Sodium (137 - 145 mmol/L) 142 Potassium (3.5 - 5.1 mmol/L) 5.0 Chloride (98 - 107 mmol/L) 115 H Carbon Dioxide (22 - 30 mmol/L) 14 L Anion Gap (5 - 16) 12 BUN (7 - 17 mg/dL) 48 H Creatinine (0.5 - 1.0 mg/dL) 1.7 H Estimated GFR (>60 ml/min) 29 L BUN/Creatinine Ratio (7 - 25 %) 28.2 H Total Bilirubin (0.2 - 1.3 mg/dL) 1.0 Direct Bilirubin (< 0.4 mg/dL) 0.7 H AST (14 - 36 U/L) 184 H ALT (9 - 52 U/L) 69 H Alkaline Phosphatase (<127 U/L) 345 H Total Protein (6.3 - 8.2 g/dL) 4.8 L Albumin (3.5 - 5.0 g/dL) 2.5 L Hematology CBC w Diff MAN DIFF ORDERED MAN DIFF ORDERED WBC (4.8 - 10.8 /CUMM) 2.9 L 3.9 L RBC (4.20 - 5.40 /CUMM) 2.68 L 3.30 L Hgb (12.0 - 16.0 G/DL) 6.4 *L 7.7 L Hct (37 - 47 %) 19.3 *L 23.4 L MCV (81.0 - 99.0 FL) 72.0 L 71.0 L MCH (27.0 - 31.0 PG) 23.7 L 23.4 L MCHC (33.0 - 37.0 G/DL) 33.0 33.0 RDW (11.5 - 14.5 %) 25.3 H 24.1 H Plt Count (130 - 400 /CUMM) 32 L 38 L MPV (7.4 - 10.4 FL) 7.7 7.4 Segmented Neutrophils (42.2 - 75.2 %) 25 L 37 L Band Neutrophils (0.0 - 5.0 %) 5 4 Lymphocytes (20.5 - 51.1 %) 49 45 Monocytes (1.7 - 9.3 %) 17 H 10 H Eosinophils (0 - 5.0 %) 2 2 Basophils (0.0 - 2.0 %) 2 1 Metamyelocytes (0.0 - 1.0 %) 1 Nucleated RBCs (0.0 - 0.0 /100WBC) 6 H 8 H Platelet Estimate (ADEQUATE) DECREASED Polychromasia 1+ 2+ Hypochromic-Microcytic 3+ 2+ Poikilocytosis 4+ 1+ Anisocytosis 3+ 2+ Microcytic Cells 3+ 2+ Ovalocytes 2+ Elliptocytes 1+ FEW Schistocytes 2+ FEW 05/12 05/12 05/12 0600 0506 0506 Chemistry Sodium (137 - 145 mmol/L) Cancelled 141 Potassium (3.5 - 5.1 mmol/L) Cancelled 5.1 Chloride (98 - 107 mmol/L) Cancelled 113 H Carbon Dioxide (22 - 30 mmol/L) Cancelled 10 L Anion Gap (5 - 16) Cancelled 18 H BUN (7 - 17 mg/dL) Cancelled 54 H Creatinine (0.5 - 1.0 mg/dL) Cancelled 2.0 H Estimated GFR (>60 ml/min) 24 L BUN/Creatinine Ratio (7 - 25 %) Cancelled 27.0 H Calcium (8.4 - 10.2 mg/dL) 9.1 GGT (12 - 43 U/L) 182 H Prot Electrophoresis Pending Total Protein (PEP) Pending Albumin % (PEP) Pending Gocii-9-Iiljambaa Pending Demcy-9-[id number] Pending Nyhv-0-Dfomjvoi Pending Uxqv-7-Seukbggq Pending Gamma Globulins Pending Abnorm Protein Band 1 Pending Abnorm Protein Band 2 Pending Abnorm Protein Band 3 Pending Coagulation APTT (25 - 37 SEC) 20 L Fibrinogen Activity (200 - 393 MG/DL) 314 D-Dimer High Sensitivty (0 - 243 ng/ml) 933 H Hematology CBC w Diff Cancelled MAN DIFF ORDERED WBC (4.8 - 10.8 /CUMM) Cancelled 5.0 RBC (4.20 - 5.40 /CUMM) Cancelled 3.25 L Hgb (12.0 - 16.0 G/DL) Cancelled 7.6 L Hct (37 - 47 %) Cancelled 23.6 L MCV (81.0 - 99.0 FL) Cancelled 72.6 L MCH (27.0 - 31.0 PG) Cancelled 23.4 L MCHC (33.0 - 37.0 G/DL) Cancelled 32.2 L RDW (11.5 - 14.5 %) Cancelled 24.9 H Plt Count (130 - 400 /CUMM) Cancelled 41 L MPV (7.4 - 10.4 FL) Cancelled 7.6 Segmented Neutrophils (42.2 - 75.2 %) 31 L Band Neutrophils (0.0 - 5.0 %) 1 Lymphocytes (20.5 - 51.1 %) 53 H Monocytes (1.7 - 9.3 %) 13 H Eosinophils (0 - 5.0 %) 1 Basophils (0.0 - 2.0 %) 1 Nucleated RBCs (0.0 - 0.0 /100WBC) 15 H Platelet Estimate (ADEQUATE) DECREASED Polychromasia 1+ Hypochromic-Microcytic 1+ Poikilocytosis 3+ Anisocytosis 1+ Microcytic Cells 1+ Target Cells FEW Ovalocytes 1+ Ricardo Cells 1+ Elliptocytes 1+ Other Body Source Fld Total RBCs Counted (%) 100 05/11 Coagulation PT (9.4 - 12.5 SEC) 13.4 H INR (0.90 - 1.19) 1.28 H Hematology Haptoglobin Pending Urines Urine Color (YEL,AMB,STR) YEL Urine Clarity (CLEAR) HAZY H Urine pH (5.0 - 8.0) 6.0 Ur Specific Draper (1.001 - 1.035) 1.020 Urine Protein (NEG,<30 MG/DL) 30 H Urine Ketones (NEG) 15 H Urine Nitrite (NEG) NEG Urine Bilirubin (NEG) NEG@ICTO Urine Urobilinogen (0.1 - 1.0 EU/dl) 0.2 Ur Leukocyte Esterase (NEG) MOD H Ur Microscopic SEDIMENT EXAMINED Urine RBC (0 - 5 /HPF) FEW H Urine WBC (0 - 2 /HPF) 25-50 H Ur Epithelial Cells (NONE,FEW) FEW Urine Bacteria (NEG/NONE) MANY H Urine Hemoglobin (NEG) TRACE-INTACT Urine Glucose (N MG/DL) NEG 05/11 1958 Chemistry Sodium (137 - 145 mmol/L) 138 Potassium (3.5 - 5.1 mmol/L) 5.5 H Chloride (98 - 107 mmol/L) 105 Carbon Dioxide (22 - 30 mmol/L) 12 L Anion Gap (5 - 16) 21 H BUN (7 - 17 mg/dL) 60 H Creatinine (0.5 - 1.0 mg/dL) 2.5 H Estimated GFR (>60 ml/min) 19 L BUN/Creatinine Ratio (7 - 25 %) 25.0 Glucose (65 - 99 mg/dL) 104 H Calcium (8.4 - 10.2 mg/dL) 9.2 Phosphorus (2.5 - 4.5 mg/dL) 4.6 H Magnesium (1.6 - 2.3 mg/dL) 2.1 Iron (37 - 170 ug/dL) 240 H TIBC (265 - 497 ug/dL) 275 Ferritin (11.1 - 264 ng/mL) 9940.0 H Total Bilirubin (0.2 - 1.3 mg/dL) 1.4 H Direct Bilirubin (< 0.4 mg/dL) 0.9 H AST (14 - 36 U/L) 192 H ALT (9 - 52 U/L) 79 H Alkaline Phosphatase (<127 U/L) 436 H Lactate Dehydrogenase (313 - 618 U/L) 2589 H Troponin I (< 0.11 ng/ml) < 0.01 Total Protein (6.3 - 8.2 g/dL) 6.0 L Albumin (3.5 - 5.0 g/dL) 3.4 L Globulin (1.9 - 4.2 gm/dL) 2.6 Albumin/Globulin Ratio (1.1 - 2.2 %) 1.3 Vitamin B12 (239 - 931 pg/mL) 730 Folate (2.76 - 20.0 ng/mL) 4.7 Hematology CBC w Diff MAN DIFF ORDERED WBC (4.8 - 10.8 /CUMM) 3.6 L RBC (4.20 - 5.40 /CUMM) 2.90 L Hgb (12.0 - 16.0 G/DL) 6.2 *L Hct (37 - 47 %) 19.4 *L MCV (81.0 - 99.0 FL) 67.0 L MCH (27.0 - 31.0 PG) 21.5 L MCHC (33.0 - 37.0 G/DL) 32.0 L RDW (11.5 - 14.5 %) 19.4 H Plt Count (130 - 400 /CUMM) 35 L MPV (7.4 - 10.4 FL) 7.5 Gran % (42.2 - 75.2 %) 42.6 Lymphocytes % (20.5 - 51.1 %) 43.0 Monocytes % (1.7 - 9.3 %) 12.5 H Eosinophils % (0 - 5 %) 1.9 Basophils % (0.0 - 2.0 %) 0 Absolute Granulocytes (1.4 - 6.5 /CUMM) 1.8 Segmented Neutrophils (42.2 - 75.2 %) 48 Band Neutrophils (0.0 - 5.0 %) 3 Absolute Lymphocytes (1.2 - 3.4 /CUMM) 1.8 Lymphocytes (20.5 - 51.1 %) 38 Monocytes (1.7 - 9.3 %) 9 Absolute Monocytes (0.10 - 0.60 /CUMM) 0.5 Eosinophils (0 - 5.0 %) 2 Absolute Eosinophils (0.0 - 0.7 /CUMM) 0.1 Absolute Basophils (0.0 - 0.2 /CUMM) 0 Nucleated RBCs (0.0 - 0.0 /100WBC) 20 H Platelet Estimate (ADEQUATE) DECREASED Polychromasia 1+ Hypochromic-Microcytic 2+ Poikilocytosis 1+ Anisocytosis 2+ Microcytic Cells 2+ Retic Count (0.5 - 2.0 %) 2.86 H Serology Hepatitis A IgM Ab (NONREACTIVE) NONREACTIVE Hep Bs Antigen (NONREACTIVE) NONREACTIVE Hep B Core IgM Ab Conf (NONREACTIVE) NONREACTIVE Hepatitis C Antibody (NONREACTIVE) NONREACTIVE Imaging/Other Studies: SERVICE DATE: 05/13/17 EXAM TYPE: US - US-LIMITED ABDOMEN EXAMINATION: US ABDOMEN LIMITED CLINICAL INFORMATION: Transaminitis. Weight loss. History of cancer. COMPARISON: CT of the chest, abdomen and pelvis without contrast done on 05/12/2017. TECHNIQUE: Real-time imaging of the right upper quadrant abdominal viscera. FINDINGS: PANCREAS: Normal. LIVER: Numerous intrahepatic focal hypoechoic lesions are identified throughout the entire liver, most consistent with metastatic disease. GALLBLADDER: Minimal gallbladder wall thickening is noted measuring 0.5 cm at its maximum dimension possibly represent reactive changes from adjacent hepatic disease. The gallbladder is physiologically distended without evidence of stones, sludge, polyps or pericholecystic fluid. No sonographic Chaudhary's sign was noted at the time of the examination. COMMON BILE DUCT: Normal in caliber measuring 0.4 cm in diameter. RIGHT KIDNEY: Slightly lobulated parenchyma is noted. No hydronephrosis. No renal calculi or focal parenchymal lesions. The kidney measures 11.5 cm in maximum dimension. FREE FLUID: None. IMPRESSION: 1. Abnormal sonographic appearance of the liver showing multifocal intrahepatic hypoechoic abnormalities, most consistent with metastatic disease. 2. Minimal nonspecific gallbladder wall thickening likely represents reactive changes from adjacent liver disease.
--- NOTE | 2017-05-13 17:26 | NUCLEAR MEDICINE REPORT ---
EXAMINATION: NM BONE SCAN WHOLE BODY CLINICAL INFORMATION: History of cancer, low back pain and weakness. Sclerotic lesion on CT. COMPARISON: No previous bone scan is available for comparison. Radiographs of the abdomen and chest dated 05/11/2017 are available for comparison. The diagnostic CT scan of the chest, abdomen, and pelvis, dated 05/12/2017, is available for comparison. TECHNIQUE: Multiple gamma scintillation camera images of the whole body were performed 3.25 hours following the intravenous administration of 27.7 mCi Tc-99m HDP. FINDINGS: In the head, there is a mild diffuse prominence of the calvarium without a focal component. In the thoracic cage and upper extremities, there is minimally increased activity in the glenohumeral articulation of the right shoulder. In the spine, there is a mild thoracolumbar scoliosis with lumbar convexity to the left. Minimally increased activity is present in the thoracic spine at T9 and T10. In the pelvis, no significant abnormalities are present. In the lower extremities, there is a mild diffuse increase in activity throughout both femurs with minimal heterogeneity present but no discrete focal accentuation. Is also mildly increased activity in the knees, mild in intensity. No other definite bony abnormalities are noted. The urinary bladder and faint visualization of both kidneys are noted. The CT scan dated 05/12/2017 shows multiple sclerotic lesions throughout the visualized bones, particularly in the spine, sternum pelvis and visualized proximal femurs. IMPRESSION: In combination with the CT findings, this scan appearance is probably due to confluent metastatic disease to the osseous structures. A dominant focal abnormality is not present but there is diffusely increased activity in the calvarium and in both femurs and some prominence of the spine with mild heterogeneity, although not definitely outside the limits of normal in the spine, in combination with the other findings and CT appearance is most consistent with diffuse metastatic disease.
[2017-05-13 23:00] VITALS: BP 122/60
--- NOTE | 2017-05-14 01:21 | PN- Housestaff ---
Subjective Follow-up For: Pancytopenia JOSUE DM transaminitis Subjective: Patient visited today, was lying in bed comfortably in no acute distress, was alert and oriented, in good mood. No fever or chills, no shortness of breathing, no chest pain, no other events. Bone marrow biopsy was not performed due to low plt count, we will follow on tuesday for Plt transfusion and BMB. Had conversation with Dr. Elizondo yesterday, noted it would be rare but possible that breast cancer metastasized to bone marrow resulted in pancytopenia. 1mg/kg pred PO was started as empiric treatment. we will also trend DIC plan. Hb was found to be low and 1 U PRBC transfused yesterday. Hb this morning is pending which is important for follow up. Review of Systems Constitutional: Reports: see HPI. Objective Last 24 Hrs of Vital Signs/I&O Vital Signs Date Time Temp Pulse Resp B/P B/P Pulse O2 O2 Flow FiO2 Mean Ox Delivery Rate 05/13 2300 97.9 76 18 122/60 97 Room Air 05/13 0822 98.2 90 20 140/68 05/13 0728 98.2 90 20 140/68 95 Room Air Intake & Output 05/14 0800 05/14 0000 05/13 1600 Intake Total 1080 0 Output Total 300 Balance 780 0 Intake, IV 600 Intake, Oral 480 0 Output, Urine 300 Physical Exam General Appearance: Alert, Oriented X3, Cooperative, No Acute Distress Skin Temp/Moisture Exam: Warm/Dry Sepsis Skin Exam (color): Normal for Ethnicity HEENT: Atraumatic, EOMI, Mucous Membr. moist/pink Cardiovascular: Normal S1, Normal S2 Abdomen: relatively distanded, no tenderness Neurological: Normal Speech Current Medications: Current Medications Sig/Lori Start time Last Medication Dose Route Stop Time Status Admin Acetaminophen 500 MG Q8P PRN 05/12 0030 AC 05/13 PO 1059 Diclofenac Sodium 1 JULIO 4 TIMES/DAY 05/13 1400 AC 05/13 TOP 2105 Hydromorphone HCl 2 MG ONCE ONE 05/13 1230 DC 05/13 PO 05/13 1231 1334 Insulin Aspart 0 TIDAC 05/12 0245 AC SC Lidocaine 1 PAT Q24H 05/12 0030 AC 05/13 EXT 0028 Metoprolol Succinate 50 MG DAILY 05/12 1000 AC 05/13 PO 0822 Patient Medication 1 ED ONE ONE 05/13 1645 [facility] ED 05/13 1646 Prednisone 80 MG DAILY 05/13 1630 AC 05/13 PO 2103 Senna/Docusate Sodium 1 TAB BID PRN 05/12 0030 PO Sodium Chloride 1,000 ML .[id number] 05/12 0030 AC 05/13 IV 0031 Verapamil HCl 200 MG DAILY 05/12 1000 AC 05/12 PO 1056 Last 24 Hrs of Lab/Jim Results Last 24 Hrs of Labs/Mics: Laboratory Tests 05/13/17 0615: Anion Gap 12, Estimated GFR 29 L, BUN/Creatinine Ratio 28.2 H, Total Bilirubin 1.0, Direct Bilirubin 0.7 H, AST 184 H, ALT 69 H, Alkaline Phosphatase 345 H , Total Protein 4.8 L, Albumin 2.5 L, CBC w Diff MAN DIFF ORDERED, RBC 2.68 L , MCV 72.0 L, MCH 23.7 L, MCHC 33.0, RDW 25.3 H, MPV 7.7, Segmented Neutrophils 25 L, Band Neutrophils 5, Lymphocytes 49, Monocytes 17 H, Eosinophils 2, Basophils 2, Nucleated RBCs 6 H, Platelet Estimate , Polychromasia 1+, Hypochromic-Microcytic 3+, Poikilocytosis 4+, Anisocytosis 3+, Microcytic Cells 3+, Ovalocytes 2+, Elliptocytes 1+, Schistocytes 2+ Assessment/Plan Assessment: 76 years old female with past medical history of hypertension, hyperlipidemia, skin cancer of the left leg S/P excision on 08/2016,BRBPR and sigmoid polyp S/P polypectomy on 10/2010, diverticulosis, internal hemorrhoid, breast cancer S/P lumpectomy on 10/2010 after which she was treated with chemotherapy and radiotherapy. 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 Other possibilities include leukemia/ lymphoma with cold autoimmune hemolysis as well as bone marrow metstatis. Bone scan was performed as below which suggested possble metastatic lesion. Bone marrow biopsy was not performed due to low plt count, we will follow on tuesday for Plt transfusion and BMB. Had conversation with Dr. Elizondo, noted it would be rare but possible that breast cancer metastasized to bone marrow resulted in pancytopenia. 1mg/kg pred PO was started as empiric treatment. we will also trend DIC plan. Hb was found to be low and 1 U PRBC transfused yesterday. -Continue Admit to general medical floor -Patient received 1 unit of packed RBCs in the ED, repeated 1PRB transfusion on 05/13 -Follow up on Ferritin, TIBC, Delmy' test, reticulocyte count, vitamin B12, folic acid -Follow Hematology consult appreciated -Follow GI consult appreciated -Continue Close monitoring of CBC -Vitals every shift - SPEP and UPEP - calcium level - BMB pafter Plt transfusion most likely in outpatient - prednison 80mg/day - DIC panel trend daily # Sclerotic lesions in CT scan Back pain: Since the patient has both renal impairment and hepatic impairment will avoid pain meds as possible Lidocaine patch Tylenol by mouth 500 mg every 8 when necessary Bone scan was done: In combination with the CT findings, this scan appearance is probably due to confluent metastatic disease to the osseous structures. A dominant focal abnormality is not present but there is diffusely increased activity in the calvarium and in both femurs and some prominence of the spine with mild heterogeneity, although not definitely outside the limits of normal in the spine, in combination with the other findings and CT appearance is most consistent with diffuse metastatic disease. # Transaminitis: most likely metastaic liver disease Differential diagnosis includes liver metastasis, analgesic side effect, GI consult appreciated Monitor of liver function test RUQ ultrasound: 1. Abnormal sonographic appearance of the liver showing multifocal intrahepatic hypoechoic abnormalities, most consistent with metastatic disease. 2. Minimal nonspecific gallbladder wall thickening likely represents reactive changes from adjacent liver disease. - daily LFT #History of diabetes mellitus: Hold home meds Insulin sliding scale Fingerstick glucose #JOSUE/hyperkalemia Differential diagnosis includes a prerenal due to dehydration and poor oral intake, analgesic nephropathy, multiple myeloma. Gentle IV hydration Avoid nephrotoxic medication Close monitoring of kidney function Intake and output #History of chronic medical condition includes hypertension, hyperlipidemia Continue home meds including metoprolol, verapamil Patient is full code DVT prophylaxis with Alps Problem List: 1. Pancytopenia 2. Bone lesion 3. Transaminitis Pain Ratin Pain Location: back pain Pain Goal: Pain 4 or less Pain Plan: continue current plan Tomorrow's Labs & Rationales: CBc BEP DIC panel LFT
[2017-05-14 07:29] VITALS: BP 150/80
[2017-05-14 09:21] LABS: PT 12.1 SEC (9.4-12.5); PTT < 20 SEC (25-37)
[2017-05-14 09:25] LABS: MEAN CORPUSCULAR HGB 24.7 PG (27.0-31.0); MEAN CORPUSCULAR HGB CONC 33.4 G/DL (33.0-37.0); MEAN PLATELET VOLUME 7.9 FL (7.4-10.4); RBC DISTRIBUTION WIDTH 26.3 % (11.5-14.5)
[2017-05-14 11:50] LABS: HEMATOCRIT 24.4 % (37-47); PLATELET COUNT 31 /CUMM (130-400)
[2017-05-14 14:19] VITALS: BP 112/60
--- NOTE | 2017-05-14 17:37 | PN- Att Addend ---
Attending Addendum Attending Brief Note No new complaints patient is brighter still pale looking. Vital signs are stable no fever and no major changes on physical her last hemoglobin 0.2 hematocrit 24.9 patient had an ultrasound of the liver and the changes are most consistent with metastatic disease patient also had a bone scan abnormalities probably are due to confluent metastatic disease to the osseous structures. Will check with the consultants GI and oncology each approach is the best to make the diagnosis either a liver biopsy or a GI procedure like a colonoscopy Intake & Output 05/14 1600 05/14 04005/13 04005/12 040 Intake Total 3320 1080 920 414 722 2854 Output Total 700 300 300 240 200 Balance 2620 780 620 430 -80 1000 Intake, IV 1200 600 355 492 3628 Intake, Oral 2120 480 220 100 120 Number 0 0 1 Bowel Movements Output, Urine 700 300 300 240 200 Patient 175 lb 175 lb Weight Weight Estimated Reported by Patient Measurement Method Current Medications Sig/Lori Start time Last Medication Dose Route Stop Time Status Admin Acetaminophen 500 MG Q8P PRN 05/12 0030 AC 05/13 PO 1059 Diclofenac Sodium 1 JULIO 4 TIMES/DAY 05/13 1400 AC 05/14 TOP 1714 Insulin Aspart 0 TIDAC 05/12 0245 AC 05/14 SC 1714 Lidocaine 1 PAT Q24H 05/12 0030 AC 05/14 EXT 0433 Metoprolol Succinate 50 MG DAILY 05/12 1000 AC 05/14 PO 1716 Prednisone 80 MG DAILY 05/13 1630 AC 05/14 PO 0832 Senna/Docusate Sodium 1 TAB BID PRN 05/12 003 AC PO Sodium Chloride 1,000 ML .[id number] 05/12 0030 AC 05/14 IV 0433 Verapamil HCl 200 MG DAILY 05/12 1000 AC 05/14 PO 0832 Laboratory Tests 05/14/17 0734: Anion Gap 11, Estimated GFR 40 L, BUN/Creatinine Ratio 32.3 H, Total Bilirubin 1.2, Direct Bilirubin 0.7 H, AST 233 H, ALT 88 H, Alkaline Phosphatase 400 H , Total Protein 5.2 L, Albumin 2.7 L, PT 12.1, INR 1.15, APTT < 20 L, Fibrinogen Activity 301, D-Dimer High Sensitivty 1590 H, CBC w Diff MAN DIFF ORDERED, RBC 3.30 L, MCV 74.0 L, MCH 24.7 L, MCHC 33.4, RDW 26.3 H, MPV 7.9, Segmented Neutrophils 37 L, Band Neutrophils 12 H, Lymphocytes 43, Monocytes 6 , Metamyelocytes 2 H, Nucleated RBCs 11 H, Polychromasia 1+, Poikilocytosis 3+ , Anisocytosis 2+, Microcytic Cells 3+, Target Cells 1+, Schistocytes FEW 05/13/17 0615: Anion Gap 12, Estimated GFR 29 L, BUN/Creatinine Ratio 28.2 H, Total Bilirubin 1.0, Direct Bilirubin 0.7 H, AST 184 H, ALT 69 H, Alkaline Phosphatase 345 H , Total Protein 4.8 L, Albumin 2.5 L, CBC w Diff MAN DIFF ORDERED, RBC 2.68 L , MCV 72.0 L, MCH 23.7 L, MCHC 33.0, RDW 25.3 H, MPV 7.7, Segmented Neutrophils 25 L, Band Neutrophils 5, Lymphocytes 49, Monocytes 17 H, Eosinophils 2, Basophils 2, Nucleated RBCs 6 H, Platelet Estimate , Polychromasia 1+, Hypochromic-Microcytic 3+, Poikilocytosis 4+, Anisocytosis 3+, Microcytic Cells 3+, Ovalocytes 2+, Elliptocytes 1+, Schistocytes 2+ 05/12/17 1610: CBC w Diff MAN DIFF ORDERED, RBC 3.30 L, MCV 71.0 L, MCH 23.4 L, MCHC 33.0, RDW 24.1 H, MPV 7.4, Segmented Neutrophils 37 L, Band Neutrophils 4, Lymphocytes 45, Monocytes 10 H, Eosinophils 2, Basophils 1, Metamyelocytes 1, Nucleated RBCs 8 H, Platelet Estimate DECREASED, Polychromasia 2+, Hypochromic- Microcytic 2+, Poikilocytosis 1+, Anisocytosis 2+, Microcytic Cells 2+, Elliptocytes FEW, Schistocytes FEW 05/12/17 0600: Sodium Cancelled, Potassium Cancelled, Chloride Cancelled, Carbon Dioxide Cancelled, Anion Gap Cancelled, BUN Cancelled, Creatinine Cancelled, BUN/ Creatinine Ratio Cancelled, CBC w Diff Cancelled, WBC Cancelled, RBC Cancelled, Hgb Cancelled, Hct Cancelled, MCV Cancelled, MCH Cancelled, MCHC Cancelled, RDW Cancelled, Plt Count Cancelled, MPV Cancelled 05/12/17 0506: Anion Gap 18 H, Estimated GFR 24 L, BUN/Creatinine Ratio 27.0 H, Calcium 9.1, GGT 182 H 05/12/17 0506: Prot Electrophoresis Pending, Total Protein (PEP) Pending, Albumin % (PEP) Pending, [id number] Pending, Pteis-0-Snuwjgfjc Pending, Nwow-0-Noabqjpy Pending, Lakj-2-Oecpjoya Pending, Gamma Globulins Pending, Abnorm Protein Band 1 Pending, Abnorm Protein Band 2 Pending, Abnorm Protein Band 3 Pending, APTT 20 L, Fibrinogen Activity 314, D-Dimer High Sensitivty 933 H, CBC w Diff MAN DIFF ORDERED, RBC 3.25 L, MCV 72.6 L, MCH 23.4 L, MCHC 32.2 L, RDW 24.9 H, MPV 7.6, Segmented Neutrophils 31 L, Band Neutrophils 1, Lymphocytes 53 H, Monocytes 13 H, Eosinophils 1, Basophils 1, Nucleated RBCs 15 H, Platelet Estimate DECREASED, Polychromasia 1+, Hypochromic-Microcytic 1+, Poikilocytosis 3+, Anisocytosis 1+, Microcytic Cells 1+, Target Cells FEW, Ovalocytes 1+, Ricardo Cells 1+, Elliptocytes 1+, Fld Total RBCs Counted 100 05/11/172154: PT 13.4 H, INR 1.28 H 05/11/172014: Urine Color YEL, Urine Clarity HAZY H, Urine pH 6.0, Ur Specific Bradford 1.020, Urine Protein 30 H, Urine Ketones 15 H, Urine Nitrite NEG, Urine Bilirubin NEG @ICTO, Urine Urobilinogen 0.2, Ur Leukocyte Esterase MOD H, Ur Microscopic SEDIMENT EXAMINED, Urine RBC FEW H, Urine WBC 25-50 H, Ur Epithelial Cells FEW , Urine Bacteria MANY H, Urine Hemoglobin TRACE-INTACT, Urine Glucose NEG 05/11/171958: Haptoglobin 194 05/11/171958: Anion Gap 21 H, Estimated GFR 19 L, BUN/Creatinine Ratio 25.0, Glucose 104 H, Calcium 9.2, Phosphorus 4.6 H, Magnesium 2.1, Iron 240 H, TIBC 275, Ferritin 9940.0 H, Total Bilirubin 1.4 H, Direct Bilirubin 0.9 H, AST 192 H, ALT 79 H, Alkaline Phosphatase 436 H, Lactate Dehydrogenase 2589 H, Troponin I < 0.01 , Total Protein 6.0 L, Albumin 3.4 L, Globulin 2.6, Albumin/Globulin Ratio 1.3 , Vitamin B12 730, Folate 4.7, CBC w Diff MAN DIFF ORDERED, RBC 2.90 L, MCV 67.0 L, MCH 21.5 L, MCHC 32.0 L, RDW 19.4 H, MPV 7.5, Gran % 42.6, Lymphocytes % 43.0, Monocytes % 12.5 H, Eosinophils % 1.9, Basophils % 0, Absolute Granulocytes 1.8, Segmented Neutrophils 48, Band Neutrophils 3, Absolute Lymphocytes 1.8, Lymphocytes 38, Monocytes 9, Absolute Monocytes 0.5, Eosinophils 2, Absolute Eosinophils 0.1, Absolute Basophils 0, Nucleated RBCs 20 H, Platelet Estimate DECREASED, Polychromasia 1+, Hypochromic-Microcytic 2+, Poikilocytosis 1+, Anisocytosis 2+, Microcytic Cells 2+, Retic Count 2.86 H, Hepatitis A IgM Ab NONREACTIVE, Hep Bs Antigen NONREACTIVE, Hep B Core IgM Ab Conf NONREACTIVE, Hepatitis C Antibody NONREACTIVE Microbiology 05/11 2017 URINE ROUT: Urine Culture - COMP ESCHERICHIA COLI 05/11 1999 NASOPHARYN: Influenza Virus A & B Rapid Smear - COMP Microbiology 05/11 2017 URINE ROUT: Urine Culture - COMP ESCHERICHIA COLI 05/11 1999 NASOPHARYN: Influenza Virus A & B Rapid Smear - COMP Vital Signs Date Time Temp Pulse Resp B/P B/P Pulse O2 O2 Flow FiO2 Mean Ox Delivery Rate 05/14 1716 90 112/60 05/14 1419 98.0 90 18 112/60 92 Room Air 05/14 0729 97.8 86 20 150/80 93 Room Air 05/13 2300 97.9 76 18 122/60 97 Room Air
[2017-05-14 23:28] VITALS: BP 150/80
[2017-05-15 07:01] VITALS: BP 110/60
[2017-05-15 08:16] LABS: HEMATOCRIT 22.4 % (37-47); MEAN CORPUSCULAR HGB 24.5 PG (27.0-31.0); MEAN PLATELET VOLUME 7.7 FL (7.4-10.4); RBC DISTRIBUTION WIDTH 26.2 % (11.5-14.5); RED BLOOD CELL CT 3.03 /CUMM (4.20-5.40)
--- NOTE | 2017-05-15 08:17 | PN- Housestaff ---
Mohini Griffin MD,Ami 05/15/17 0817: Subjective Follow-up For: Pancytopenia JOSUE DM transaminitis Subjective: Patient visited today, was lying in bed comfortably in no acute distress, eating breakfast, was alert and oriented. No fever or chills, no shortness of breathing, no chest pain, no other events. Patient was not cleared with PT yet, no evaluation was done due to increasd D Dimer with concerns of DIC. Currently labs are trending down. We will follow DIC panel. Plan to do BM biopsy tomorrow after Plt transfusion, will check CBC this evening. Review of Systems Constitutional: Reports: see HPI. Objective Last 24 Hrs of Vital Signs/I&O Vital Signs Date Time Temp Pulse Resp B/P B/P Pulse O2 O2 Flow FiO2 Mean Ox Delivery Rate 05/15 0701 98.2 71 20 110/60 97 Room Air 05/14 2328 98.5 81 20 150/80 94 Room Air 05/14 1716 90 112/60 05/14 1419 98.0 90 18 112/60 92 Room Air Intake & Output 05/15 1600 05/15 0800 05/15 0000 Intake Total 840 705 Output Total 300 400 Balance 540 305 Intake, IV 600 225 Intake, Oral 240 480 Output, Urine 300 400 Patient 175 lb Weight Physical Exam General Appearance: Alert, Oriented X3, Cooperative, No Acute Distress Skin: No Significant Lesion, no petechia, no erythema, no sign of bleeding Skin Temp/Moisture Exam: Warm/Dry Sepsis Skin Exam (color): Normal for Ethnicity HEENT: Atraumatic, EOMI, Mucous Membr. moist/pink Cardiovascular: Regular Rate, Normal S1, Normal S2 Lungs: Clear to Auscultation Abdomen: Soft, No Tenderness Neurological: Normal Speech Extremities: trace - +1 edema Current Medications: Current Medications Sig/Lori Start time Last Medication Dose Route Stop Time Status Admin Acetaminophen 500 MG Q8P PRN 05/12 0030 AC 05/13 PO 1059 Calcium Carbonate 500 MG DAILY 05/15 1400 UNVr PO Diclofenac Sodium 1 JULIO 4 TIMES/DAY 05/13 1400 AC 05/14 TOP 2055 Insulin Aspart 0 TIDAC 05/12 0245 AC 05/14 SC 1714 Lidocaine 1 PAT Q24H 05/12 0030 AC 05/15 EXT 0436 Metoprolol Succinate 50 MG DAILY 05/12 1000 AC 05/14 PO 1716 Prednisone 80 MG DAILY 05/13 1630 AC 05/15 PO 1046 Senna/Docusate Sodium 1 TAB BID PRN 05/12 0030 PO Sodium Chloride 1,000 ML .[id number] 05/12 0030 AC 05/15 IV 0438 Verapamil HCl 200 MG DAILY 05/12 1000 AC 05/15 PO 1046 Last 24 Hrs of Lab/Jim Results Last 24 Hrs of Labs/Mics: Laboratory Tests 05/15/17 0615: Anion Gap 13, Estimated GFR 48 L, BUN/Creatinine Ratio 38.2 H, Total Bilirubin 1.2, Direct Bilirubin 0.7 H, AST 235 H, ALT 94 H, Alkaline Phosphatase 334 H , Total Protein 4.8 L, Albumin 2.5 L, PT 13.7 H, INR 1.31 H, APTT 20 L, Fibrinogen Activity 224, D-Dimer High Sensitivty 1086 H, CBC w Diff MAN DIFF ORDERED, RBC 3.03 L, MCV 74.0 L, MCH 24.5 L, MCHC 33.0, RDW 26.2 H, MPV 7.7, Segmented Neutrophils 54, Band Neutrophils 7 H, Lymphocytes 24, Monocytes 14 H , Metamyelocytes 1, Nucleated RBCs 20 H, Polychromasia 2+, Poikilocytosis 3+, Anisocytosis 2+, Microcytic Cells 3+, Target Cells FEW, Schistocytes FEW Assessment/Plan Assessment: 76 years old female with past medical history of hypertension, hyperlipidemia, skin cancer of the left leg S/P excision on 08/2016,BRBPR and sigmoid polyp S/P polypectomy on 10/2010, diverticulosis, internal hemorrhoid, breast cancer S/P lumpectomy on 10/2010 after which she was treated with chemotherapy and radiotherapy. 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 Other possibilities include leukemia/ lymphoma with cold autoimmune hemolysis as well as bone marrow metstatis. Bone scan was performed as below which suggested possble metastatic lesion. Bone marrow biopsy was not performed due to low plt count, we will follow on tuesday for Plt transfusion and BMB. Had conversation with Dr. Elizondo, noted it would be rare but possible that breast cancer metastasized to bone marrow resulted in pancytopenia. 1mg/kg pred PO was started as empiric treatment. we will also trend DIC plan. Hb was found to be low and 1 U PRBC transfused yesterday. -Continue Admit to general medical floor -Patient received 1 unit of packed RBCs in the ED, repeated 1PRB transfusion on 05/13 -Hb trending down, Continue Close monitoring of CBC -Follow Hematology -Follow GI consult -Vitals every shift - SPEP and UPEP - calcium level normal - BMB pafter Plt transfusion most likely in outpatient - Prednison 80mg/day - DIC panel trend daily # Sclerotic lesions in CT scan Back pain: Since the patient has both renal impairment and hepatic impairment will avoid pain meds as possible Lidocaine patch Tylenol by mouth 500 mg every 8 when necessary Bone scan was done: In combination with the CT findings, this scan appearance is probably due to confluent metastatic disease to the osseous structures. A dominant focal abnormality is not present but there is diffusely increased activity in the calvarium and in both femurs and some prominence of the spine with mild heterogeneity, although not definitely outside the limits of normal in the spine, in combination with the other findings and CT appearance is most consistent with diffuse metastatic disease. # Transaminitis: most likely metastaic liver disease Differential diagnosis includes liver metastasis, analgesic side effect, GI consult appreciated Monitor of liver function test RUQ ultrasound: 1. Abnormal sonographic appearance of the liver showing multifocal intrahepatic hypoechoic abnormalities, most consistent with metastatic disease. 2. Minimal nonspecific gallbladder wall thickening likely represents reactive changes from adjacent liver disease. - daily LFT #History of diabetes mellitus: Hold home meds Insulin sliding scale Fingerstick glucose #JOSUE/hyperkalemia Differential diagnosis includes a prerenal due to dehydration and poor oral intake, analgesic nephropathy, multiple myeloma. Cr today 1.1 - Avoid nephrotoxic medication - Close monitoring of kidney function - Intake and output #History of chronic medical condition includes hypertension, hyperlipidemia Continue home meds including metoprolol, verapamil - TUMS for heartburn after Calcium level normal Patient is full code DVT prophylaxis with Alps Problem List: 1. Pancytopenia 2. Bone lesion Pain Ratin Pain Location: None Pain Goal: Pain 4 or less Pain Plan: Continue current plan Tomorrow's Labs & Rationales: CBC, BEP, DIC, LFT probnp
[2017-05-15 08:31] LABS: PT 13.7 SEC (9.4-12.5); PTT 20 SEC (25-37)
[2017-05-15 10:36] LABS: PLATELET COUNT 30 /CUMM (130-400); WHITE BLOOD CELL COUNT 2.8 /CUMM (4.8-10.8)
[2017-05-15 15:51] VITALS: BP 105/62
--- NOTE | 2017-05-15 16:15 | PN- Att Addend ---
Attending Addendum Attending Brief Note Patient comfortable in bed, still pale. Vital signs are stable no fever and no major changes on physical her CBC still abnormal with a white count of 2800 hemoglobin 7.4 x 2 crit 22.4 and platelet count 30,000. His CBC will be repeated later on today she may get a transfusion that way temporary she will have more platelets and a better count today can proceed to do the morning Intake & Output 05/15 1600 05/15 0400 05/14 0400 05/13 1600 05/13 0400 Intake Total 2580 705 3320 1080 920 670 Output Total 1100 400 700 300 300 240 Balance 0775 299 7212 780 620 430 Intake, IV 0791 854 1814 600 700 570 Intake, Oral 2781 404 1043 480 220 100 Number 0 0 0 Bowel Movements Output, Urine 1100 400 700 300 300 240 Patient 175 lb Weight Current Medications Sig/Lori Start time Last Medication Dose Route Stop Time Status Admin Acetaminophen 500 MG Q8P PRN 05/12 0030 AC 05/13 PO 1059 Calcium Carbonate 500 MG DAILY 05/15 1400 AC 05/15 PO 1417 Diclofenac Sodium 1 JULIO 4 TIMES/DAY 05/13 1400 AC 05/15 TOP 1417 Insulin Aspart 0 TIDAC 05/12 0245 AC 05/14 SC 1714 Lidocaine 1 PAT Q24H 05/12 0030 AC 05/15 EXT 0436 Metoprolol Succinate 50 MG DAILY 05/12 1000 AC 05/14 PO 1716 Prednisone 80 MG DAILY 05/13 1630 AC 05/15 PO 1046 Senna/Docusate Sodium 1 TAB BID PRN 05/12 003 AC PO Sodium Chloride 1,000 ML .[id number] 05/12 0030 AC 05/15 IV 0438 Verapamil HCl 200 MG DAILY 05/12 1000 AC 05/15 PO 1046 Laboratory Tests 05/15/17 0615: Anion Gap 13, Estimated GFR 48 L, BUN/Creatinine Ratio 38.2 H, Total Bilirubin 1.2, Direct Bilirubin 0.7 H, AST 235 H, ALT 94 H, Alkaline Phosphatase 334 H , Total Protein 4.8 L, Albumin 2.5 L, PT 13.7 H, INR 1.31 H, APTT 20 L, Fibrinogen Activity 224, D-Dimer High Sensitivty 1086 H, CBC w Diff MAN DIFF ORDERED, RBC 3.03 L, MCV 74.0 L, MCH 24.5 L, MCHC 33.0, RDW 26.2 H, MPV 7.7, Segmented Neutrophils 54, Band Neutrophils 7 H, Lymphocytes 24, Monocytes 14 H , Metamyelocytes 1, Nucleated RBCs 20 H, Polychromasia 2+, Poikilocytosis 3+, Anisocytosis 2+, Microcytic Cells 3+, Target Cells FEW, Schistocytes FEW 05/14/17 0734: Anion Gap 11, Estimated GFR 40 L, BUN/Creatinine Ratio 32.3 H, Total Bilirubin 1.2, Direct Bilirubin 0.7 H, AST 233 H, ALT 88 H, Alkaline Phosphatase 400 H , Total Protein 5.2 L, Albumin 2.7 L, PT 12.1, INR 1.15, APTT < 20 L, Fibrinogen Activity 301, D-Dimer High Sensitivty 1590 H, CBC w Diff MAN DIFF ORDERED, RBC 3.30 L, MCV 74.0 L, MCH 24.7 L, MCHC 33.4, RDW 26.3 H, MPV 7.9, Segmented Neutrophils 37 L, Band Neutrophils 12 H, Lymphocytes 43, Monocytes 6 , Metamyelocytes 2 H, Nucleated RBCs 11 H, Polychromasia 1+, Poikilocytosis 3+ , Anisocytosis 2+, Microcytic Cells 3+, Target Cells 1+, Schistocytes FEW 05/13/17 0615: Anion Gap 12, Estimated GFR 29 L, BUN/Creatinine Ratio 28.2 H, Total Bilirubin 1.0, Direct Bilirubin 0.7 H, AST 184 H, ALT 69 H, Alkaline Phosphatase 345 H , Total Protein 4.8 L, Albumin 2.5 L, CBC w Diff MAN DIFF ORDERED, RBC 2.68 L , MCV 72.0 L, MCH 23.7 L, MCHC 33.0, RDW 25.3 H, MPV 7.7, Segmented Neutrophils 25 L, Band Neutrophils 5, Lymphocytes 49, Monocytes 17 H, Eosinophils 2, Basophils 2, Nucleated RBCs 6 H, Platelet Estimate , Polychromasia 1+, Hypochromic-Microcytic 3+, Poikilocytosis 4+, Anisocytosis 3+, Microcytic Cells 3+, Ovalocytes 2+, Elliptocytes 1+, Schistocytes 2+ Vital Signs Date Time Temp Pulse Resp B/P B/P Pulse O2 O2 Flow FiO2 Mean Ox Delivery Rate 05/15 1551 97.9 86 20 105/62 94 Room Air 05/15 0701 98.2 71 20 110/60 97 Room Air 05/14 2328 98.5 81 20 150/80 94 Room Air 05/14 1716 90 112/60
[2017-05-15 20:02] LABS: HEMATOCRIT 24.5 % (37-47); MEAN CORPUSCULAR HGB 24.7 PG (27.0-31.0); MEAN CORPUSCULAR HGB CONC 33.6 G/DL (33.0-37.0); MEAN CORPUSCULAR VOLUME 73.7 FL (81.0-99.0); MEAN PLATELET VOLUME 7.6 FL (7.4-10.4); PLATELET COUNT 38 /CUMM (130-400); RBC DISTRIBUTION WIDTH 26.3 % (11.5-14.5); RED BLOOD CELL CT 3.32 /CUMM (4.20-5.40)
[2017-05-15 20:05] LABS: WHITE BLOOD CELL COUNT 4.7 /CUMM (4.8-10.8)
[2017-05-15 22:35] VITALS: BP 108/74
--- NOTE | 2017-05-16 06:38 | PN- Housestaff ---
Subjective Follow-up For: Pancytopenia JOSUE DM transaminitis Subjective: Patient visited today, was lying in bed comfortably in no acute distress, was alert and oriented. No fever or chills, no chest pain, no other events. Page patient didn't go for bone marrow biopsy since was not nothing by mouth. We will plan to do bone marrow biopsy tomorrow. DIC panel worsening. no sign of bleeding except IV line alva, Patient had SOB with minimal excertion. Review of Systems Constitutional: Reports: see HPI. Objective Last 24 Hrs of Vital Signs/I&O Vital Signs Date Time Temp Pulse Resp B/P B/P Pulse O2 O2 Flow FiO2 Mean Ox Delivery Rate 05/16 0945 78 124/82 05/16 0703 98.1 79 20 114/70 92 05/15 2235 98.3 82 20 108/74 95 Room Air 05/15 1551 97.9 86 20 105/62 94 Room Air Intake & Output 05/16 1600 05/16 0800 05/16 0000 Intake Total 600 600 Output Total 300 850 Balance 300 -250 Intake, IV 600 600 Output, Urine 300 850 Physical Exam General Appearance: Alert, Oriented X3, Cooperative, No Acute Distress Skin: No Significant Lesion Skin Temp/Moisture Exam: Warm/Dry Sepsis Skin Exam (color): Normal for Ethnicity HEENT: Atraumatic, EOMI, Mucous Membr. moist/pink Cardiovascular: Normal S1, Normal S2 Lungs: Clear to Auscultation Abdomen: Soft, No Tenderness, Liver spam increased, no tenderness Neurological: Normal Speech Last 24 Hrs of Lab/Jim Results Last 24 Hrs of Labs/Mics: Laboratory Tests 05/16/17 0734: Anion Gap 15, Estimated GFR > 60, BUN/Creatinine Ratio 42.2 H, Total Bilirubin 1.4 H, Direct Bilirubin 0.9 H, AST 266 H, ALT 111 H, Alkaline Phosphatase 344 H, Total Protein 5.1 L, Albumin 2.7 L, PT 13.5 H, INR 1.29 H, APTT 21 L, Fibrinogen Activity 218, D-Dimer High Sensitivty 1657 H, CBC w Diff MAN DIFF ORDERED, RBC 3.20 L, MCV 74.8 L, MCH 24.3 L, MCHC 32.5 L, RDW 27.0 H, MPV 8.0, Segmented Neutrophils 56, Band Neutrophils 5, Lymphocytes 29, Monocytes 5, Metamyelocytes 1, Myelocytes 4 H, Nucleated RBCs 17 H, Platelet Estimate DECREASED, Polychromasia 2+, Hypochromic-Microcytic 2+, Poikilocytosis 1+, Anisocytosis 2+, Microcytic Cells 2+ 05/15/171855: CBC w Diff NO MAN DIFF REQ, RBC 3.32 L, MCV 73.7 L, MCH 24.7 L, MCHC 33.6, RDW 26.3 H, MPV 7.6 Assessment/Plan Assessment: 76 years old female with past medical history of hypertension, hyperlipidemia, skin cancer of the left leg S/P excision on 08/2016,BRBPR and sigmoid polyp S/P polypectomy on 10/2010, diverticulosis, internal hemorrhoid, breast cancer S/P lumpectomy on 10/2010 after which she was treated with chemotherapy and radiotherapy. 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 Other possibilities include leukemia/ lymphoma with cold autoimmune hemolysis as well as bone marrow metstatis. Bone scan was performed as below which suggested possble metastatic lesion. Bone marrow biopsy was not performed due to low plt count, we will follow on tuesday for Plt transfusion and BMB. -Continue Admit to general medical floor -Patient received 1 unit of packed RBCs in the ED, repeated 1PRB transfusion on 05/13 -Hb trending, Continue Close monitoring of CBC -Follow Hematology -Follow GI consult -Vitals every shift - Follow SPEP and UPEP, AdamT3 - calcium level normal - BMB pafter Plt transfusion, planned for tomorrow - Prednison 80mg/day - DIC panel trend daily - NPO tinight for BM biopsy tomorrow # Sclerotic lesions in CT scan Back pain: Since the patient has both renal impairment and hepatic impairment will avoid pain meds as possible Lidocaine patch Tylenol by mouth 500 mg every 8 when necessary Bone scan was done: In combination with the CT findings, this scan appearance is probably due to confluent metastatic disease to the osseous structures. A dominant focal abnormality is not present but there is diffusely increased activity in the calvarium and in both femurs and some prominence of the spine with mild heterogeneity, although not definitely outside the limits of normal in the spine, in combination with the other findings and CT appearance is most consistent with diffuse metastatic disease. - BM biopsy will help # Transaminitis: most likely metastaic liver disease Differential diagnosis includes liver metastasis, analgesic side effect, GI consult appreciated Monitor of liver function test RUQ ultrasound: 1. Abnormal sonographic appearance of the liver showing multifocal intrahepatic hypoechoic abnormalities, most consistent with metastatic disease. 2. Minimal nonspecific gallbladder wall thickening likely represents reactive changes from adjacent liver disease. - daily LFT #History of diabetes mellitus: Hold home meds Insulin sliding scale Fingerstick glucose #JOSUE/hyperkalemia Differential diagnosis includes a prerenal due to dehydration and poor oral intake, analgesic nephropathy, multiple myeloma. Cr today 1.1 - Avoid nephrotoxic medication - Close monitoring of kidney function - Intake and output #History of chronic medical condition includes hypertension, hyperlipidemia Continue home meds including metoprolol, verapamil - TUMS for heartburn after Calcium level normal Patient is full code DVT prophylaxis with Alps Problem List: 1. Liver lesion 2. Pancytopenia Pain Ratin (later during day) Pain Location: Abdominal Pain Goal: Pain 4 or less Pain Plan: Percocet PRN, cautious considering possbile change in mental status Tomorrow's Labs & Rationales: CBC BEP, DIC, LFT
[2017-05-16 07:03] VITALS: BP 114/70
--- NOTE | 2017-05-16 07:33 | PN- Hematology ---
Subjective Subjective: She denies any new pain. She has no fever or chills. She denies any bleeding issues. Review of Systems Constitutional: Denies: chills, fever, weakness. Cardiovascular: Denies: chest pain. Respiratory: Denies: short of breath. Gastrointestinal: Denies: abdominal pain. Musculoskeletal: Denies: back pain. Neurological/Psychological: Reports: anxiety. Denies: confusion. Hematologic/Endocrine: Denies: bruising, bleeding. All Other Systems: Reviewed and Negative Objective Vital Signs and I&Os Vital Signs Date Time Temp Pulse Resp B/P B/P Pulse O2 O2 Flow FiO2 Mean Ox Delivery Rate 05/16 0703 98.1 79 20 114/70 92 05/15 2235 98.3 82 20 108/74 95 Room Air 05/15 1551 97.9 86 20 105/62 94 Room Air Intake & Output 05/16 0800 05/16 0000 05/15 1600 05/15 0800 05/15 0000 05/14 1600 Intake Total 600 1740 976 152 7804 Output Total 850 800 300 400 350 Balance -250 940 811 705 4989 Intake, IV 600 600 600 225 600 Intake, Oral [phone] Number 0 0 Bowel Movements Output, Urine 850 800 300 400 350 Patient 79.379 kg Weight Physical Exam: General Appearance: well developed/nourished, no apparent distress, alert, awake , comfortable, obese Respiratory: normal breath sounds, chest non-tender, no respiratory distress, quiet respiration Cardiovascular: regular rate/rhythm Gastrointestinal: normal bowel sounds, soft, non-tender, no organomegaly Extremities: no edema Neurologic/Psych: awake, alert, disoriented to year Skin: ecchymosis (upper extremities) Lymphatic: no adenopathy Current Medications: Current Medications Sig/Lori Start time Last Medication Dose Route Stop Time Status Admin Acetaminophen 500 MG Q8P PRN 05/12 0030 AC 05/13 PO 1059 Calcium Carbonate 500 MG DAILY 05/15 1400 AC 05/15 PO 1417 Diclofenac Sodium 1 JULIO 4 TIMES/DAY 05/13 1400 AC 05/15 TOP 2014 Insulin Aspart 0 TIDAC 05/12 0245 05/14 SC 1714 Lidocaine 1 PAT Q24H 05/12 0030 05/15 EXT 0436 Metoprolol Succinate 50 MG DAILY 05/12 1000 AC 05/15 PO 1758 Prednisone 80 MG DAILY 05/13 1630 AC 05/15 PO 1046 Senna/Docusate Sodium 1 TAB BID PRN 05/12 0030 AC PO Sodium Chloride 1,000 ML .[id number] 05/12 0030 AC 05/15 IV 2013 Verapamil HCl 200 MG DAILY 05/12 1000 AC 05/15 PO 1046 Results Last 24 Hours of Lab Results: Laboratory Tests 05/15 1856 Hematology CBC w Diff NO MAN DIFF REQ WBC (4.8 - 10.8 /CUMM) 4.7 L RBC (4.20 - 5.40 /CUMM) 3.32 L Hgb (12.0 - 16.0 G/DL) 8.2 L Hct (37 - 47 %) 24.5 L MCV (81.0 - 99.0 FL) 73.7 L MCH (27.0 - 31.0 PG) 24.7 L MCHC (33.0 - 37.0 G/DL) 33.6 RDW (11.5 - 14.5 %) 26.3 H Plt Count (130 - 400 /CUMM) 38 L MPV (7.4 - 10.4 FL) 7.6 Recent Imaging Studies: Bone scan 05/12/2017: In combination with the CT findings, this scan appearance is probably due to confluent metastatic disease to the osseous structures. A dominant focal abnormality is not present but there is diffusely increased activity in the calvarium and in both femurs and some prominence of the spine with mild heterogeneity, although not definitely outside the limits of normal in the spine , in combination with the other findings and CT appearance is most consistent with diffuse metastatic disease. Assessment/Plan Hematology Assessment/Recommendations: Ms. Rascon is a 76-year-old female with history of thalassemia, breast cancer status post lumpectomy, chemotherapy, radiation, and endocrine therapy, hypertension, hyperlipidemia, skin cancer of the left leg S/P excision on 2016, sigmoid polyp s/p polypectomy on 10/2010, diverticulosis, and internal hemorrhoid who presented to the hospital with weakness and exertional dyspnea for 1 week. On admission, she was noted to have worsening anemia, new renal failure, and thrombocytopenia. Creatinine was 2.5. She was noted to have elevated ferritin and LDH. Bilirubin was slightly elevated at 1.4 (normal 1.3). LFT was also elevated. She does have a somewhat elevated LFT at baseline from outpatient laboratory. Folate and B12 levels are normal. KERWIN is negative. Peripheral blood smear is abnormal with numerous target cells, ovalocytes, jacky cell, elliptocytes, anisocytosis, poikilocytosis, basophilic stippling, tear drops cells, rare schistocyte, and nucleated RBC. Her creatinine has normalized. Bilirubin level is within normal range with elevated direct bilirubin. She has no obvious hemolysis. DIC panel suggest downward trending fibrinogen which may be developing DIC. Platelet count have been stable in the 30,000s. Hemogloblin has been in the 7-8 range with hematocrit in the 20-24 range. SPEP is pending. Bone scan, CT scans, and abdominal US suggest diffuse metastatic disease to the liver and bone. Blood work suggests an infiltrative process in the bone marrow given the metamyelocytes and nucleated RBC. She will need bone marrow biopsy and potentially liver biopsy if bone marrow is not revealing. Pancytopenia: -[id number] and SPEP pending -bone marrow biopsy: send for flow and obtain multiple core to evaluate for ? malignancy -will likely need platelet transfusion with biopsy Sclerotic bone lesion: -bone biopsy as above Liver lesions: -may need biopsy if bone biopsy is unrevealing Breast cancer: -follow up with Dr. Aiken as scheduled Please call [phone] with any questions or concerns. Problem List: 1. Pancytopenia 2. Bone lesion 3. Liver lesion 4. Transaminitis 5. Breast cancer
[2017-05-16 09:03] LABS: HEMATOCRIT 23.9 % (37-47); MEAN CORPUSCULAR HGB 24.3 PG (27.0-31.0); MEAN CORPUSCULAR HGB CONC 32.5 G/DL (33.0-37.0)
[2017-05-16 09:41] LABS: MEAN CORPUSCULAR VOLUME 74.8 FL (81.0-99.0); WHITE BLOOD CELL COUNT 5.7 /CUMM (4.8-10.8)
[2017-05-16 09:50] LABS: PLATELET COUNT 35 /CUMM (130-400)
[2017-05-16 10:00] LABS: PT 13.5 SEC (9.4-12.5); PTT 21 SEC (25-37)
--- NOTE | 2017-05-16 11:01 | PN- Att Addend ---
Attending Addendum Attending Brief Note Patient ambulating with PT patient was not nothing by mouth this morning to the biopsy procedure was deferred until tomorrow morning. Vital signs are stable no fever. Still very pale. Labs noted Intake & Output 05/16 1600 05/16 04005/15 1600 05/15 0400 05/14 1600 05/14 0400 Intake Total 852 127 8762 705 3320 1080 Output Total 454 766 4738 400 700 300 Balance 300 -250 5062 208 1112 780 Intake, IV 257 575 0057 225 1200 600 Intake, Oral 1529 651 7399 480 Number 0 0 Bowel Movements Output, Urine 378 790 1517 400 700 300 Patient 175 lb Weight Current Medications Sig/Lori Start time Last Medication Dose Route Stop Time Status Admin Acetaminophen 500 MG Q8P PRN 05/12 29 AC 05/16 PO 1054 Calcium Carbonate 500 MG DAILY 05/15 1400 AC 05/16 PO 0944 Diclofenac Sodium 1 JULIO 4 TIMES/DAY 05/13 1400 AC 05/16 TOP 0946 Insulin Aspart 0 TIDAC 05/12 0245 AC 05/14 SC 1714 Lidocaine 1 PAT Q24H 05/12 003 05/16 EXT 0851 Metoprolol Succinate 50 MG DAILY 05/12 1000 AC 05/16 PO 0945 Prednisone 80 MG DAILY 05/13 1630 AC 05/16 PO 0944 Senna/Docusate Sodium 1 TAB BID PRN 05/12 29 PO Sodium Chloride 1,000 ML .[id number] 05/12 29 AC 05/16 IV 1054 Verapamil HCl 200 MG DAILY 05/12 1000 AC 05/16 PO 0944 Laboratory Tests 05/16/17 0734: Anion Gap 15, Estimated GFR > 60, BUN/Creatinine Ratio 42.2 H, Total Bilirubin 1.4 H, Direct Bilirubin 0.9 H, AST 266 H, ALT 111 H, Alkaline Phosphatase 344 H, Total Protein 5.1 L, Albumin 2.7 L, PT 13.5 H, INR 1.29 H, APTT 21 L, Fibrinogen Activity 218, D-Dimer High Sensitivty 1657 H, CBC w Diff MAN DIFF ORDERED, RBC 3.20 L, MCV 74.8 L, MCH 24.3 L, MCHC 32.5 L, RDW 27.0 H, MPV 8.0, Segmented Neutrophils 56, Band Neutrophils 5, Lymphocytes 29, Monocytes 5, Metamyelocytes 1, Myelocytes 4 H, Nucleated RBCs 17 H, Platelet Estimate DECREASED, Polychromasia 2+, Hypochromic-Microcytic 2+, Poikilocytosis 1+, Anisocytosis 2+, Microcytic Cells 2+ 05/15/17 1856: CBC w Diff NO MAN DIFF REQ, RBC 3.32 L, MCV 73.7 L, MCH 24.7 L, MCHC 33.6, RDW 26.3 H, MPV 7.6 05/15/17 0615: Anion Gap 13, Estimated GFR 48 L, BUN/Creatinine Ratio 38.2 H, Total Bilirubin 1.2, Direct Bilirubin 0.7 H, AST 235 H, ALT 94 H, Alkaline Phosphatase 334 H , Total Protein 4.8 L, Albumin 2.5 L, PT 13.7 H, INR 1.31 H, APTT 20 L, Fibrinogen Activity 224, D-Dimer High Sensitivty 1086 H, CBC w Diff MAN DIFF ORDERED, RBC 3.03 L, MCV 74.0 L, MCH 24.5 L, MCHC 33.0, RDW 26.2 H, MPV 7.7, Segmented Neutrophils 54, Band Neutrophils 7 H, Lymphocytes 24, Monocytes 14 H , Metamyelocytes 1, Nucleated RBCs 20 H, Polychromasia 2+, Poikilocytosis 3+, Anisocytosis 2+, Microcytic Cells 3+, Target Cells FEW, Schistocytes FEW 05/14/17 0734: Anion Gap 11, Estimated GFR 40 L, BUN/Creatinine Ratio 32.3 H, Total Bilirubin 1.2, Direct Bilirubin 0.7 H, AST 233 H, ALT 88 H, Alkaline Phosphatase 400 H , Total Protein 5.2 L, Albumin 2.7 L, PT 12.1, INR 1.15, APTT < 20 L, Fibrinogen Activity 301, D-Dimer High Sensitivty 1590 H, CBC w Diff MAN DIFF ORDERED, RBC 3.30 L, MCV 74.0 L, MCH 24.7 L, MCHC 33.4, RDW 26.3 H, MPV 7.9, Segmented Neutrophils 37 L, Band Neutrophils 12 H, Lymphocytes 43, Monocytes 6 , Metamyelocytes 2 H, Nucleated RBCs 11 H, Polychromasia 1+, Poikilocytosis 3+ , Anisocytosis 2+, Microcytic Cells 3+, Target Cells 1+, Schistocytes FEW Vital Signs Date Time Temp Pulse Resp B/P B/P Pulse O2 O2 Flow FiO2 Mean Ox Delivery Rate 05/16 0945 78 124/82 05/16 0703 98.1 79 20 114/70 92 05/15 2235 98.3 82 20 108/74 95 Room Air 05/15 1551 97.9 86 20 105/62 94 Room Air
[2017-05-16 15:01] VITALS: BP 118/70
[2017-05-16 22:36] VITALS: BP 100/54
[2017-05-17 06:23] VITALS: BP 136/70
--- NOTE | 2017-05-17 07:52 | PN- Hematology ---
Subjective Subjective: She did not get biopsy yesterday. She is tentatively scheduled to get one today. This morning she reports more shortness of breath. She has right posterior flank pain. She thinks it is anxiety. Symptoms started this morning. She has no fever or chills. Review of Systems Constitutional: Reports: weakness. Denies: chills, fever. Cardiovascular: Reports: chest pain (posterior right flank). Respiratory: Reports: short of breath. Denies: cough, hemoptysis, sputum production. Gastrointestinal: Denies: abdominal pain. Musculoskeletal: Reports: back pain. Neurological/Psychological: Reports: anxiety. Denies: confusion. Hematologic/Endocrine: Denies: bruising, bleeding. All Other Systems: Reviewed and Negative Objective Vital Signs and I&Os Vital Signs Date Time Temp Pulse Resp B/P B/P Pulse O2 O2 Flow FiO2 Mean Ox Delivery Rate 05/17 0623 98.0 83 20 136/70 91 Room Air 05/17 0347 94 Room Air 05/17 0000 Room Air 05/16 2236 98.0 78 90 100/54 20 05/16 1501 97.7 77 20 118/70 92 Room Air 05/16 0945 78 124/82 Intake & Output 05/17 0800 05/17 0000 05/16 1600 05/16 0800 05/16 0000 05/15 1600 Intake Total 184 337 8620 126 505 7801 Output Total 700 300 800 300 850 800 Balance -100 405 400 300 -250 940 Intake, IV 600 225 600 600 600 600 Intake, Oral 0 311 439 3687 Number 1 0 Bowel Movements Output, Urine 700 300 800 300 850 800 Physical Exam: General Appearance: well developed/nourished, no apparent distress, alert, awake , comfortable, obese Respiratory: normal breath sounds, chest non-tender, tachypnea Cardiovascular: regular rate/rhythm Gastrointestinal: normal bowel sounds, soft, non-tender, no organomegaly Extremities: no edema Neurologic/Psych: awake, alert, disoriented to year Skin: ecchymosis (upper extremities) Lymphatic: no adenopathy Current Medications: Current Medications Sig/Lori Start time Last Medication Dose Route Stop Time Status Admin Acetaminophen 500 MG Q8P PRN 05/12 0030 AC 05/16 PO 1054 Calcium Carbonate 500 MG DAILY 05/15 1400 AC 05/16 PO 0944 Dextrose/Sodium 1,000 ML Q13H 05/17 0000 AC 05/17 Chloride IV 0034 Diclofenac Sodium 1 JULIO 4 TIMES/DAY 05/13 1400 AC 05/16 TOP 2135 Insulin Aspart 0 TIDAC 05/12 0245 DC 05/16 SC 05/16 2355 1859 Insulin Human Regular 0 Q6 05/16 2359 AC 05/17 SC 0526 Lidocaine 1 PAT Q24H 05/17 0800 AC EXT Lidocaine 1 PAT Q24H 05/12 0030 DC 05/16 EXT 0851 Metoprolol Succinate 50 MG DAILY 05/12 1000 AC 05/16 PO 0945 Oxycodone/ 1 TAB ONCE ONE 05/16 1215 DC 05/16 Acetaminophen PO 05/16 1216 1242 Prednisone 80 MG DAILY 05/13 1630 AC 05/16 PO 0944 Senna/Docusate Sodium 1 TAB BID PRN 05/12 0030 AC PO Sodium Chloride 1,000 ML .[id number] 05/12 0030 DC 05/16 IV 05/16 2350 1054 Trimethobenzamide HCl 200 MG TID PRN 05/16 1215 AC 05/16 IM 1250 Verapamil HCl 200 MG DAILY 05/12 1000 AC 05/16 PO 0944 Results Last 24 Hours of Lab Results: Laboratory Tests 05/17 0610 Chemistry Sodium Pending Potassium Pending Chloride Pending Carbon Dioxide Pending Anion Gap Pending BUN Pending Creatinine Pending BUN/Creatinine Ratio Pending Total Bilirubin Pending Direct Bilirubin Pending AST Pending ALT Pending Alkaline Phosphatase Pending Troponin I Pending Total Protein Pending Albumin Pending Coagulation PT Pending INR Pending APTT Pending Fibrinogen Activity Pending D-Dimer High Sensitivty Pending Hematology CBC w Diff Pending WBC Pending RBC Pending Hgb Pending Hct Pending MCV Pending MCH Pending MCHC Pending RDW Pending Plt Count Pending MPV Pending Assessment/Plan Hematology Assessment/Recommendations: Ms. Rascon is a 76-year-old female with history of thalassemia, breast cancer status post lumpectomy, chemotherapy, radiation, and endocrine therapy, hypertension, hyperlipidemia, skin cancer of the left leg S/P excision on 2016, sigmoid polyp s/p polypectomy on 10/2010, diverticulosis, and internal hemorrhoid who presented to the hospital with weakness and exertional dyspnea for 1 week. On admission, she was noted to have worsening anemia, new renal failure, and thrombocytopenia. Creatinine was 2.5. She was noted to have elevated ferritin and LDH. Bilirubin was slightly elevated at 1.4 (normal 1.3). LFT was also elevated. She does have a somewhat elevated LFT at baseline from outpatient laboratory. Folate and B12 levels are normal. KERWIN is negative. Peripheral blood smear is abnormal with numerous target cells, ovalocytes, jacky cell, elliptocytes, anisocytosis, poikilocytosis, basophilic stippling, tear drops cells, rare schistocyte, and nucleated RBC. Hematologic parameters are relatively stable. There are fluctuations in the RBC and WBC. Platelet counts have been about the same in the 30,000s. Bilirubin is increasing once again. Creatinine is normal. LFT are also increasing. DIC is downward trending. SPEP is negative. Bone scan, CT scans, and abdominal US suggest diffuse metastatic disease to the liver and bone. Blood work suggests an infiltrative process in the bone marrow given the metamyelocytes and nucleated RBC. She is to have bone marrow biopsy today. If negative, she will need liver biopsy. It is concerning for diffuse metastatic breast cancer given her oncologic history. She is more short of breath this morning with new chest pain. She will likely need imaging done. Cardiac versus pulmonary. Dyspnea with chest pain: -cardiac work up: EKG, troponin -CXR Pancytopenia: -bone marrow biopsy: send for flow and obtain multiple core to evaluate for malignancy (? breast) -she can get platelet transfusion with biopsy Sclerotic bone lesion: -bone biopsy as above Liver lesions: -may need biopsy if bone biopsy is unrevealing Breast cancer: -follow up with Dr. Aiken as scheduled Please call [phone] with any questions or concerns. Problem List: 1. Breast cancer 2. Liver lesion 3. Pancytopenia 4. Bone lesion 5. Elevated bilirubin 6. Thrombocytopenia 7. Transaminitis 8. Anemia
--- NOTE | 2017-05-17 08:03 | PN- Housestaff ---
Subjective Follow-up For: Pancytopenia Bone lesions transaminitis Subjective: Patient visited today, was lying in bed comfortably in minimal distress, was alert and oriented. had No fever or chills, no chest pain, no other events. Page patient didn't go for bone marrow biopsy since was not nothing by mouth. We will plan to do bone marrow biopsy tomorrow. DIC panel worsening. no sign of bleeding except IV line alva, Patient had SOB with minimal excertion. CXR was performed, EJG was normal. DIC panel is getting worse again. not DIC yet. Planned to go for BM biopsy today. Review of Systems Constitutional: Reports: see HPI. Objective Last 24 Hrs of Vital Signs/I&O Vital Signs Date Time Temp Pulse Resp B/P B/P Pulse O2 O2 Flow FiO2 Mean Ox Delivery Rate 05/17 0834 64 136/70 05/17 0800 95 Room Air 05/17 0623 98.0 83 20 136/70 91 Room Air 05/17 0347 94 Room Air 05/17 0000 Room Air 05/16 2236 98.0 78 90 100/54 20 05/16 1501 97.7 77 20 118/70 92 Room Air Intake & Output 05/17 1600 05/17 0800 05/17 0000 Intake Total 600 600 705 Output Total 700 300 Balance 600 -100 405 Intake, IV 600 600 225 Intake, Oral 0 0 480 Output, Urine 700 300 Physical Exam General Appearance: Alert, Oriented X3, Cooperative, No Acute Distress, Mild Distress Skin: no obvious sign of bleeding Skin Temp/Moisture Exam: Warm/Dry Sepsis Skin Exam (color): Normal for Ethnicity HEENT: Atraumatic, EOMI, Mucous Membr. moist/pink Cardiovascular: Normal S1, Normal S2 Lungs: Clear to Auscultation, Normal Air Movement Abdomen: No Tenderness, distanded, abnormal liver contour Neurological: Normal Speech Extremities: No Edema Current Medications: Current Medications Sig/Lori Start time Last Medication Dose Route Stop Time Status Admin Acetaminophen 500 MG Q8P PRN 05/12 0030 AC 05/16 PO 1054 Calcium Carbonate 500 MG DAILY 05/15 1400 AC 05/17 PO 0834 Dextrose/Sodium 1,000 ML Q13H 05/17 0000 AC 05/17 Chloride IV 0034 Diclofenac Sodium 1 JULIO 4 TIMES/DAY 05/13 1400 AC 05/17 TOP 1429 Fentanyl Citrate 0 .STK-MED ONE 05/17 0959 DC .ROUTE Flumazenil 0 .STK-MED ONE 05/17 1000 DC IV Insulin Aspart 0 TIDAC 05/12 0245 DC 05/16 SC 05/16 2355 1859 Insulin Human Regular 1 UNITS .STK-MED ONE 05/17 0525 DC IV 05/17 0526 Insulin Human Regular 1 UNITS .STK-MED ONE 05/17 0017 DC IV 05/17 0018 Insulin Human Regular 0 Q6 05/16 2359 AC 05/17 SC 0526 Lidocaine 1 PAT Q24H 05/17 0800 AC 05/17 EXT 0833 Lidocaine 1 PAT Q24H 05/12 0030 DC 05/16 EXT 0851 Metoprolol Succinate 50 MG DAILY 05/12 1000 AC 05/17 PO 0834 Midazolam HCl 0 .STK-MED ONE 05/17 0959 DC .ROUTE Naloxone HCl 0 .STK-MED ONE 05/17 0959 DC .ROUTE Nystatin 1 JULIO BID 05/17 1000 AC 05/17 TOP 1429 Oxycodone/ 1 TAB ONCE ONE 05/17 1445 UNVr Acetaminophen PO 05/17 1446 Prednisone 80 MG DAILY 05/13 1630 AC 05/17 PO 0834 Senna/Docusate Sodium 1 TAB BID PRN 05/12 0030 AC PO Sodium Chloride 1,000 ML .[id number] 05/12 0030 DC 05/16 IV 05/16 2350 1054 Trimethobenzamide HCl 200 MG TID PRN 05/16 1215 AC 05/16 IM 1250 Verapamil HCl 200 MG DAILY 05/12 1000 AC 05/17 PO 0834 Last 24 Hrs of Lab/Jim Results Last 24 Hrs of Labs/Mics: Laboratory Tests 05/17/17 1210: Leukemic Chromosome Anal Pending, Flow Cytometry Specimen Pending 05/17/17 0610: Anion Gap 15, Estimated GFR > 60, BUN/Creatinine Ratio 43.3 H, Total Bilirubin 1.1, Direct Bilirubin 0.7 H, AST 265 H, ALT 119 H, Alkaline Phosphatase 340 H, Troponin I 0.08, [id number] Pept 08249 H, Total Protein 5.1 L, Albumin 2.7 L, PT 13.6 H, INR 1.30 H, APTT < 20 L, Fibrinogen Activity 187 L, D-Dimer High Sensitivty 1665 H, CBC w Diff MAN DIFF ORDERED, RBC 3.12 L, MCV 74.2 L, MCH 24.8 L, MCHC 33.4, RDW 27.9 H, MPV 7.4, Segmented Neutrophils 61, Band Neutrophils 7 H, Lymphocytes 26, Monocytes 2, Eosinophils 1, Metamyelocytes 2 H, Myelocytes 1 H, Nucleated RBCs 19 H, Platelet Estimate , Polychromasia 1+, Hypochromic-Microcytic 2+, Poikilocytosis 3+, Basophilic Stippling , Anisocytosis 3+, Microcytic Cells 2+, Ovalocytes 2+, Schistocytes 2+ Assessment/Plan Assessment: 76 years old female with past medical history of hypertension, hyperlipidemia, skin cancer of the left leg S/P excision on 08/2016,BRBPR and sigmoid polyp S/P polypectomy on 10/2010, diverticulosis, internal hemorrhoid, breast cancer S/P lumpectomy on 10/2010 after which she was treated with chemotherapy and radiotherapy. Patient comes to the ED complaining of weakness, exertional shortness of breath for one week, dizziness back pain and spasm of the back muscles for 1 week for which the patient was taking [id number] Motrin 200 mg 3 tablets daily for the past 3 days, in addition to nausea and vomiting and poor oral intake which Explained her JOSUE #Pancytopenia patient was found severely anemic with high iron level and increased unconjugated bilirubin and markedly elevated LDH which make her anemia most likely due to autoimmune hemolysis however coomb test is pending, CT abdomen showed sclerotic bone lesions suggestive of metastatic bone disease, Differential diagnosis also includesd multiple myeloma since she has renal impairment in addition to pancytopenia. Other possibilities include leukemia/ lymphoma with cold autoimmune hemolysis as well as bone marrow metstatis. Bone scan was performed as below which suggested possble metastatic lesion. Bone marrow biopsy was not performed due to low plt count, we will follow on tuesday for Plt transfusion and BMB. -Continue Admit to general medical floor -Patient received 1 unit of packed RBCs in the ED, repeated 1PRB transfusion on 05/13 -Hb trending, Continue Close monitoring of CBC -Follow Hematology -Follow GI consult -Vitals every shift - Follow SPEP and UPEP, AdamT3 - calcium level normal - BMB pafter Plt transfusion, planned for tomorrow - Prednison 80mg/day - DIC panel trend daily - NPO tinight for BM biopsy tomorrow # Sclerotic lesions in CT scan Back pain: Since the patient has both renal impairment and hepatic impairment will avoid pain meds as possible Lidocaine patch Tylenol by mouth 500 mg every 8 when necessary Bone scan was done: In combination with the CT findings, this scan appearance is probably due to confluent metastatic disease to the osseous structures. A dominant focal abnormality is not present but there is diffusely increased activity in the calvarium and in both femurs and some prominence of the spine with mild heterogeneity, although not definitely outside the limits of normal in the spine, in combination with the other findings and CT appearance is most consistent with diffuse metastatic disease. - BM biopsy will help # Transaminitis: most likely metastaic liver disease Differential diagnosis includes liver metastasis, analgesic side effect, GI consult appreciated Monitor of liver function test RUQ ultrasound: 1. Abnormal sonographic appearance of the liver showing multifocal intrahepatic hypoechoic abnormalities, most consistent with metastatic disease. 2. Minimal nonspecific gallbladder wall thickening likely represents reactive changes from adjacent liver disease. - daily LFT #History of diabetes mellitus: Hold home meds Insulin sliding scale Fingerstick glucose #JOSUE/hyperkalemia Differential diagnosis includes a prerenal due to dehydration and poor oral intake, analgesic nephropathy, multiple myeloma. Cr today 1.1 - Avoid nephrotoxic medication - Close monitoring of kidney function - Intake and output #History of chronic medical condition includes hypertension, hyperlipidemia Continue home meds including metoprolol, verapamil - TUMS for heartburn after Calcium level normal Patient is full code DVT prophylaxis with Alps Problem List: 1. Pancytopenia 2. Breast cancer Pain Ratin Pain Location: back Pain Goal: Pain 4 or less Pain Plan: Continue current plan, added PRN percocet after evaluation Tomorrow's Labs & Rationales: CBC BEP DIC LFT
--- NOTE | 2017-05-17 08:11 | RADIOLOGY REPORT ---
EXAMINATION: XR PORTABLE CHEST CLINICAL INFORMATION: Pancytopenia. Acute dyspnea. Increased work of breathing. COMPARISON: CT scan of the chest 05/12/2017. Chest radiograph 05/11/2017. TECHNIQUE: Portable frontal view of the chest was obtained. FINDINGS: There is leftward thoracic rotation therefore the diagnostic accuracy of this examination is somewhat limited. There is a new focal opacity that obscures the left lateral costophrenic recess. This finding may represent a manifestation of consolidative disease. No overt effusion. No pneumothorax. The cardiac silhouette is enlarged but unchanged from prior imaging. Upper mediastinal contours are normal. No acute osseous finding. Numerous left axillary surgical clips noted. IMPRESSION: There is a new opacity that obscures the left lateral costophrenic recess. This finding may represent a manifestation of airspace disease. Pneumonia is not excluded. Otherwise stable examination.
[2017-05-17 08:19] LABS: HEMATOCRIT 23.1 % (37-47); MEAN CORPUSCULAR HGB 24.8 PG (27.0-31.0); MEAN CORPUSCULAR HGB CONC 33.4 G/DL (33.0-37.0); MEAN CORPUSCULAR VOLUME 74.2 FL (81.0-99.0); MEAN PLATELET VOLUME 7.4 FL (7.4-10.4); PLATELET COUNT 36 /CUMM (130-400); RBC DISTRIBUTION WIDTH 27.9 % (11.5-14.5); RED BLOOD CELL CT 3.12 /CUMM (4.20-5.40)
[2017-05-17 08:23] LABS: PT 13.6 SEC (9.4-12.5); PTT < 20 SEC (25-37)
--- NOTE | 2017-05-17 10:13 | PN- Att Addend ---
Attending Addendum Attending Brief Note Patient a little short of breath but laying flat in bed. This probably related to her anemia. Patient's vital signs are stable no fever the patient is nothing by mouth to go for her bone biopsy patient will get platelets. And after that his patient is stable will check with oncology to start disposition plans. Intake & Output 05/17 1600 05/17 0400 05/16 1600 05/16 0400 05/15 1600 05/15 0400 Intake Total 624 244 6004 600 2580 705 Output Total 161 247 1295 850 1100 400 Balance -100 405 700 -250 1480 305 Intake, IV 575 581 2744 600 1200 225 Intake, Oral 0 550 855 8767 480 Number 1 0 Bowel Movements Output, Urine 986 777 1449 850 1100 400 Patient 175 lb Weight Current Medications Sig/Lori Start time Last Medication Dose Route Stop Time Status Admin Acetaminophen 500 MG Q8P PRN 05/12 0030 AC 05/16 PO 1054 Calcium Carbonate 500 MG DAILY 05/15 1400 AC 05/17 PO 0834 Dextrose/Sodium 1,000 ML Q13H 05/17 0000 AC 05/17 Chloride IV 0034 Diclofenac Sodium 1 JULIO 4 TIMES/DAY 05/13 1400 AC 05/17 TOP 0835 Fentanyl Citrate 0 .STK-MED ONE 05/17 0959 DC .ROUTE Flumazenil 0 .STK-MED ONE 05/17 1000 DC IV Insulin Aspart 0 TIDAC 05/12 0245 MS 05/16 ME 05/16 2355 1859 Insulin Human Regular 1 UNITS .STK-MED ONE 05/17 0017 DC IV 05/17 0018 Insulin Human Regular 0 Q6 05/16 2359 05/17 SC 0526 Lidocaine 1 PAT Q24H 05/17 0800 AC 05/17 EXT 0833 Lidocaine 1 PAT Q24H 05/12 0030 DC 05/16 EXT 0851 Metoprolol Succinate 50 MG DAILY 05/12 1000 AC 05/17 PO 0834 Midazolam HCl 0 .STK-MED ONE 05/17 0959 DC .ROUTE Naloxone HCl 0 .STK-MED ONE 05/17 0959 DC .ROUTE Nystatin 1 JULIO BID 05/17 1000 AC TOP Oxycodone/ 1 TAB ONCE ONE 05/16 1215 DC 05/16 Acetaminophen PO 05/16 1216 1242 Prednisone 80 MG DAILY 05/13 1630 AC 05/17 PO 0834 Senna/Docusate Sodium 1 TAB BID PRN 05/12 0030 AC PO Sodium Chloride 1,000 ML .[id number] 05/12 0030 DC 05/16 IV 05/16 2350 1054 Trimethobenzamide HCl 200 MG TID PRN 05/16 1215 AC 05/16 IM 1250 Verapamil HCl 200 MG DAILY 05/12 1000 AC 05/17 PO 0834 Laboratory Tests 05/17/17 0610: Anion Gap 15, Estimated GFR > 60, BUN/Creatinine Ratio 43.3 H, Total Bilirubin 1.1, Direct Bilirubin 0.7 H, AST 265 H, ALT 119 H, Alkaline Phosphatase 340 H, Troponin I 0.08, [id number] Pept 52872 H, Total Protein 5.1 L, Albumin 2.7 L, PT 13.6 H, INR 1.30 H, APTT < 20 L, Fibrinogen Activity 187 L, D-Dimer High Sensitivty 1665 H, CBC w Diff MAN DIFF ORDERED, RBC 3.12 L, MCV 74.2 L, MCH 24.8 L, MCHC 33.4, RDW 27.9 H, MPV 7.4, Segmented Neutrophils 61, Band Neutrophils 7 H, Lymphocytes 26, Monocytes 2, Eosinophils 1, Metamyelocytes 2 H, Myelocytes 1 H, Nucleated RBCs 19 H, Platelet Estimate , Polychromasia 1+, Hypochromic-Microcytic 2+, Poikilocytosis 3+, Basophilic Stippling , Anisocytosis 3+, Microcytic Cells 2+, Ovalocytes 2+, Schistocytes 2+ 05/16/17 0734: Anion Gap 15, Estimated GFR > 60, BUN/Creatinine Ratio 42.2 H, Total Bilirubin 1.4 H, Direct Bilirubin 0.9 H, AST 266 H, ALT 111 H, Alkaline Phosphatase 344 H, Total Protein 5.1 L, Albumin 2.7 L, PT 13.5 H, INR 1.29 H, APTT 21 L, Fibrinogen Activity 218, D-Dimer High Sensitivty 1657 H, CBC w Diff MAN DIFF ORDERED, RBC 3.20 L, MCV 74.8 L, MCH 24.3 L, MCHC 32.5 L, RDW 27.0 H, MPV 8.0, Segmented Neutrophils 56, Band Neutrophils 5, Lymphocytes 29, Monocytes 5, Metamyelocytes 1, Myelocytes 4 H, Nucleated RBCs 17 H, Platelet Estimate DECREASED, Polychromasia 2+, Hypochromic-Microcytic 2+, Poikilocytosis 1+, Anisocytosis 2+, Microcytic Cells 2+ 05/15/17 1856: CBC w Diff NO MAN DIFF REQ, RBC 3.32 L, MCV 73.7 L, MCH 24.7 L, MCHC 33.6, RDW 26.3 H, MPV 7.6 05/15/17 0615: Anion Gap 13, Estimated GFR 48 L, BUN/Creatinine Ratio 38.2 H, Total Bilirubin 1.2, Direct Bilirubin 0.7 H, AST 235 H, ALT 94 H, Alkaline Phosphatase 334 H , Total Protein 4.8 L, Albumin 2.5 L, PT 13.7 H, INR 1.31 H, APTT 20 L, Fibrinogen Activity 224, D-Dimer High Sensitivty 1086 H, CBC w Diff MAN DIFF ORDERED, RBC 3.03 L, MCV 74.0 L, MCH 24.5 L, MCHC 33.0, RDW 26.2 H, MPV 7.7, Segmented Neutrophils 54, Band Neutrophils 7 H, Lymphocytes 24, Monocytes 14 H , Metamyelocytes 1, Nucleated RBCs 20 H, Polychromasia 2+, Poikilocytosis 3+, Anisocytosis 2+, Microcytic Cells 3+, Target Cells FEW, Schistocytes FEW Vital Signs Date Time Temp Pulse Resp B/P B/P Pulse O2 O2 Flow FiO2 Mean Ox Delivery Rate 05/17 0834 64 136/70 05/17 0800 95 Room Air 05/17 0623 98.0 83 20 136/70 91 Room Air 05/17 0347 94 Room Air 05/17 0000 Room Air 05/16 2236 98.0 78 90 100/54 20 05/16 1501 97.7 77 20 118/70 92 Room Air
--- NOTE | 2017-05-17 13:24 | CT SCAN REPORT ---
CLINICAL HISTORY: This patient is a 76-year-old woman with multiple sclerotic bone lesions as well as a clinically suspected infiltrative marrow process, who presents to interventional radiology for a CT-guided bone marrow aspiration and core biopsy. PROCEDURES: 1. Limited preprocedure CT of the pelvis. 2. CT-guided bone marrow aspiration and core biopsy of right iliac bone. PHYSICIANS: Dr. Weiss (attending). MONITORING: Moderate sedation with 1 mg Versed IV 50 micrograms fentanyl IV were administered under the supervision and direction of the attending radiologist (Dr. Weiss) who observed an independent trained observer who assisted in monitoring the patient's level of consciousness and physical status throughout the procedure. Total, continuous [id number] intra-service time from initial administration of sedation agents to the conclusion of personal contact by the supervising physician was 27 minutes. MEDICATIONS: 10 mL of 1% lidocaine SQ. COMPLICATIONS: None. ESTIMATED BLOOD LOSS: <5 mL SPECIMENS: 20 mL bone marrow aspirate, 11g core biopsy of trabecular marrow, 11-gauge core biopsy of sclerotic lesion. TOTAL DLP: 233 mGy-cm. PROCEDURE NOTE: Informed consent was obtained from the patient prior to the procedure. During this process, the procedure and potential alternatives were explained along with the intended outcome and benefits. The risks of the procedure, including the possibility of an unsuccessful procedure, as well as the risk of not doing the procedure, were discussed. The patient was given the opportunity to ask questions regarding the procedure and appeared competent to make decisions. A signed consent form documenting this discussion was placed in the medical record. A time-out procedure was performed. The patient was placed prone on the CT table. A limited CT of the pelvis was performed to localize the right iliac bone and to choose appropriate needle entry and trajectory. A path was chosen that would cross the marrow space for the bone marrow aspirate and biopsy as well as continuing into a sclerotic lesion for a second core biopsy of a focal lesion. The right pelvis was prepped and draped in usual sterile fashion. The skin and subcutaneous tissues were anesthetized with lidocaine. Under CT-guidance, an 18-gauge spinal needle was advanced down to the periosteal surface of the iliac bone and the periosteum was anesthetized with lidocaine. Under CT guidance, an 11-gauge guiding needle was advanced down to the surface of the iliac bone, across the cortex, and into the marrow space with positioning confirmed with CT evaluation. A 20 mL bone marrow aspirate was obtained and immediately handed off to the computer engineering technologist who divided the sample into the bone marrow kit tubes. Through the guiding needle a 13-gauge core biopsy needle was advanced through the trabecular marrow and a 1 cm marrow plug was obtained. This was divided for flow cytometry and histology. The needle was then replaced and advanced further into the sclerotic lesion and a 1 cm plug was obtained. This was submitted in formalin. Hemostasis achieved with manual compression and a sterile bandage was applied. FINDINGS: Successful needle placement into the right iliac bone sampling both the trabecular marrow space and a sclerotic lesion. IMPRESSION: Successful CT-guided bone marrow aspiration, core biopsy of trabecular marrow, and core biopsy of a sclerotic bone lesion in the right iliac bone. PLAN: The patient was stable after the procedure and was transferred to the recovery area. The patient will be transferred back to her room when stable by sedation protocol.
[2017-05-17 22:27] VITALS: BP 126/70
[2017-05-18 07:26] VITALS: BP 124/66
--- NOTE | 2017-05-18 07:51 | PN- Hematology ---
Subjective Subjective: She underwent bone marrow biopys yesterday. She tolerated the procedure well. She denies any significant pain from it. She continues to have shortness of breath and chest tightness. She denies any nausea or vomiting. She has no fever or chills. She denies any diarrhea. Review of Systems Constitutional: Denies: chills, fever, weakness. Cardiovascular: Reports: chest pain. Respiratory: Reports: short of breath. Gastrointestinal: Denies: abdominal pain, diarrhea, nausea, vomiting. Musculoskeletal: Denies: back pain. Neurological/Psychological: Denies: anxiety. All Other Systems: Reviewed and Negative Objective Vital Signs and I&Os Vital Signs Date Time Temp Pulse Resp B/P B/P Pulse O2 O2 Flow FiO2 Mean Ox Delivery Rate 05/18 07 97.6 86 20 124/66 92 05/17 2227 97.8 85 20 126/70 93 Room Air 05/17 0834 64 136/70 05/17 0800 95 Room Air Intake & Output 05/18 0800 05/18 0000 05/17 1600 05/17 0800 05/17 0000 05/16 1600 Intake Total 240 600 600 889 610 9405 Output Total 700 300 800 Balance 240 600 600 -100 405 400 Intake, IV 600 600 600 225 600 Intake, Oral 240 0 0 480 600 Number 1 Bowel Movements Output, Urine 700 300 800 Physical Exam: General Appearance: well developed/nourished, no apparent distress, alert, awake , comfortable, obese Respiratory: normal breath sounds, chest non-tender, tachypnea Cardiovascular: regular rate/rhythm Gastrointestinal: normal bowel sounds, soft, non-tender, no organomegaly Extremities: no edema Neurologic/Psych: awake, alert, disoriented to year Skin: ecchymosis (upper extremities) Lymphatic: no adenopathy Current Medications: Current Medications Sig/Lori Start time Last Medication Dose Route Stop Time Status Admin Acetaminophen 500 MG Q8P PRN 05/12 0030 AC 05/16 PO 1054 Calcium Carbonate 500 MG DAILY 05/15 1400 AC 05/17 PO 0834 Dextrose/Sodium 1,000 ML Q13H 05/17 0000 DC 05/17 Chloride IV 0034 Diclofenac Sodium 1 JULIO 4 TIMES/DAY 05/13 1400 AC 05/17 TOP 2159 Fentanyl Citrate 0 .STK-MED ONE 05/17 0959 DC .ROUTE Flumazenil 0 .STK-MED ONE 05/17 1000 DC IV Insulin Aspart 0 TIDAC 05/17 1700 AC 05/17 SC 1642 Insulin Human Regular 0 Q6 05/16 2359 DC 05/17 SC 0526 Lidocaine 1 PAT Q24H 05/17 0800 AC 05/17 EXT 0833 Metoprolol Succinate 50 MG DAILY 05/12 1000 AC 05/17 PO 0834 Midazolam HCl 0 .STK-MED ONE 05/17 0959 DC .ROUTE Naloxone HCl 0 .STK-MED ONE 05/17 0959 DC .ROUTE Nystatin 1 JULIO BID 05/17 1000 AC 05/17 TOP 2159 Oxycodone/ 1 TAB ONCE ONE 05/17 1445 DC 05/17 Acetaminophen PO 05/17 1446 1512 Prednisone 80 MG DAILY 05/13 1630 AC 05/17 PO 0834 Senna/Docusate Sodium 1 TAB BID PRN 05/12 0030 AC PO Trimethobenzamide HCl 200 MG TID PRN 05/16 1215 AC 05/16 IM 1250 Verapamil HCl 200 MG DAILY 05/12 1000 AC 05/17 PO 0834 Results Last 24 Hours of Lab Results: Laboratory Tests 05/18 05/17 0623 1210 Chemistry Sodium Pending Potassium Pending Chloride Pending Carbon Dioxide Pending Anion Gap Pending BUN Pending Creatinine Pending BUN/Creatinine Ratio Pending Total Bilirubin Pending Direct Bilirubin Pending AST Pending ALT Pending Alkaline Phosphatase Pending Total Protein Pending Albumin Pending Coagulation PT Pending INR Pending APTT Pending Fibrinogen Activity Pending D-Dimer High Sensitivty Pending Hematology CBC w Diff Pending WBC Pending RBC Pending Hgb Pending Hct Pending MCV Pending MCH Pending MCHC Pending RDW Pending Plt Count Pending MPV Pending Miscellaneous Leukemic Chromosome Anal Pending Flow Cytometry Specimen Pending Assessment/Plan Hematology Assessment/Recommendations: Ms. Rascon is a 76-year-old female with history of thalassemia, breast cancer status post lumpectomy, chemotherapy, radiation, and endocrine therapy, hypertension, hyperlipidemia, skin cancer of the left leg S/P excision on 2016, sigmoid polyp s/p polypectomy on 10/2010, diverticulosis, and internal hemorrhoid who presented to the hospital with weakness and exertional dyspnea for 1 week. On admission, she was noted to have worsening anemia, new renal failure, and thrombocytopenia. Creatinine was 2.5. She was noted to have elevated ferritin and LDH. Bilirubin was slightly elevated at 1.4 (normal 1.3). LFT was also elevated. She does have a somewhat elevated LFT at baseline from outpatient laboratory. Folate and B12 levels are normal. KERWIN is negative. Peripheral blood smear is abnormal with numerous target cells, ovalocytes, jacky cell, elliptocytes, anisocytosis, poikilocytosis, basophilic stippling, tear drops cells, rare schistocyte, and nucleated RBC. She continues to have significant abnormalities in her hematologic parameters. She does have a precursor cells in the peripheral blood. She has to show signs and nucleated RBC. Renal function and bilirubin have been within normal limits. Her AST, ALT, and alkaline phosphatase has been elevated. Her presentation is concerning for a infiltrative marrow process in addition to findings in the liver concerning for metastatic disease. Her DIC panel has been progressively worsening. Differential for this include malignancy related DIC, drug induced, and infection. She has no obvious infectious findings. Bands in her peripheral smear but overall afebrile. She is not on any new medication. She does have concerning feature for diffuse metastatic disease. Treatment for this is supportive care for now. Prednisone may be stopped as it does not seem to have any benefit to her at the moment. She's underwent bone marrow biopsy yesterday. Result is pending today. Hopefully we'll be able to get a preliminary within the next day or 2. If pathology is unrevealing, she may need a liver biopsy. She continues have some tightness and discomfort. She does have some heaviness with breathing. Chest x-ray demonstrated a new opacity that obscures the left lateral costophrenic recess. The BNP was noted to be in the 20,000. Troponin was negative. It would be reasonable to obtain her echocardiogram. She should work with physical therapy. She will likely need to be discharged to a STR/SNF. Dyspnea with chest pain: -Obtain Echocardiogram Pancytopenia: -Followed bone marrow biopsy -Follow up on DIC panel -discontinue prednisone Sclerotic bone lesion: -bone biopsy as above -follow up pathology Liver lesions: -may need a liver biopsy informed biopsies unrevealing Breast cancer: -follow up with Dr. Aiken as scheduled Please call [phone] with any questions or concerns. Problem List: 1. Breast cancer 2. Liver lesion 3. Pancytopenia 4. Bone lesion 5. Transaminitis
--- NOTE | 2017-05-18 08:02 | PN- Housestaff ---
Subjective Follow-up For: Pancytopenia Bone lesions history of breast and skin cancer transaminitis Subjective: Patient visited today, ill looking lady, was lying in bed c in no minimal distress, was alert and partially oriented. No fever or chills, had shortness of breathing with ambulation, walked to the [address] yesterday, no chest pain, no other events. DIC panel was being followed (getting worse). family present at the bedside, had meeting and described the finding and that we are waiting for biopsy results, family noted that they are willing to have her pain free and comfortable. We will dissuss plan of care after getting the biopsy results. Pathology contacted, the samples are still undergoing decalcification process, would read the first thing in the morning. Dr Elizondo following the case, will stop prednison as did not help with the counts. Pro BNP was high, we will get ECHo. Review of Systems Constitutional: Reports: see HPI. Objective Last 24 Hrs of Vital Signs/I&O Vital Signs Date Time Temp Pulse Resp B/P B/P Pulse O2 O2 Flow FiO2 Mean Ox Delivery Rate 05/18 1000 86 124/66 05/18 0726 97.6 86 20 124/66 92 05/17 2227 97.8 85 20 126/70 93 Room Air Intake & Output 05/18 1600 05/18 0800 05/18 0000 Intake Total 240 600 Output Total Balance 240 600 Intake, IV 600 Intake, Oral 240 Physical Exam General Appearance: Alert, Cooperative, partially oriented, not to date. Skin: No Significant Lesion Skin Temp/Moisture Exam: Warm/Dry Sepsis Skin Exam (color): Normal for Ethnicity HEENT: Atraumatic, EOMI, Mucous Membr. moist/pink Cardiovascular: Normal S1, Normal S2 Lungs: Clear to Auscultation Abdomen: minmal tenderness in the RUQ, abnormal liver contour Neurological: Normal Tone Extremities: Edema Current Medications: Current Medications Sig/Lori Start time Last Medication Dose Route Stop Time Status Admin Acetaminophen 500 MG Q8P PRN 05/12 0030 AC 05/18 PO 1000 Calcium Carbonate 500 MG DAILY 05/15 1400 AC 05/18 PO 1000 Dextrose/Sodium 1,000 ML Q13H 05/17 0000 DC 05/17 Chloride IV 0034 Diclofenac Sodium 1 JULIO 4 TIMES/DAY 05/13 1400 AC 05/18 TOP 1000 Hydromorphone HCl 2 MG ONCE ONE 05/18 1000 DC 05/18 PO 05/18 1001 1009 Insulin Aspart 0 TIDAC 05/17 1700 AC 05/17 SC 1642 Insulin Human Regular 0 Q6 05/16 2359 MN 05/17 SC 0526 Lidocaine 1 PAT Q24H 05/17 0800 AC 05/18 EXT 1000 Metoprolol Succinate 50 MG DAILY 05/12 1000 AC 05/18 PO 1000 Nystatin 1 JULIO BID 05/17 1000 AC 05/18 TOP 1000 Oxycodone/ 1 TAB ONCE ONE 05/17 1445 DC 05/17 Acetaminophen PO 05/17 1446 1512 Patient Medication 1 ED ONE ONE 05/18 1145 Teaching ED 05/18 1146 Prednisone 80 MG DAILY 05/13 1630 DC 05/18 PO 1000 Senna/Docusate Sodium 1 TAB BID PRN 05/12 0030 PO Trimethobenzamide HCl 200 MG TID PRN 05/16 1215 AC 05/16 IM 1250 Verapamil HCl 200 MG DAILY 05/12 1000 AC 05/18 PO 1000 Last 24 Hrs of Lab/Jim Results Last 24 Hrs of Labs/Mics: Laboratory Tests 05/18/17 0822: CBC w Diff MAN DIFF ORDERED, RBC 3.10 L, MCV 74.2 L, MCH 24.4 L, MCHC 32.9 L , RDW 28.3 H, MPV 7.4, Segmented Neutrophils 67, Band Neutrophils 3, Lymphocytes 20 L, Monocytes 7, Metamyelocytes 3 H, Nucleated RBCs 35 H, Polychromasia 2+, Poikilocytosis 3+, Anisocytosis 3+, Microcytic Cells 3+, Ovalocytes 1+, Schistocytes FEW 05/18/17 0623: Anion Gap 18 H, Estimated GFR > 60, BUN/Creatinine Ratio 41.1 H, Total Bilirubin 1.5 H, Direct Bilirubin 1.0 H, AST 265 H, ALT 101 H, Alkaline Phosphatase 338 H, Total Protein 5.5 L, Albumin 3.0 L 05/17/17 1210: Leukemic Chromosome Anal Pending, Flow Cytometry Specimen Pending Assessment/Plan Assessment: 76 years old female with past medical history of hypertension, hyperlipidemia, skin cancer of the left leg S/P excision on 08/2016,BRBPR and sigmoid polyp S/P polypectomy on 10/2010, diverticulosis, internal hemorrhoid, breast cancer S/P lumpectomy on 10/2010 after which she was treated with chemotherapy and radiotherapy. 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 Other possibilities include leukemia/ lymphoma with cold autoimmune hemolysis as well as bone marrow metstatis. Bone scan was performed as below which suggested possble metastatic lesion. Bone marrow biopsy was not performed due to low plt count, we will follow on tuesday for Plt transfusion and BMB. -Continue Admit to general medical floor -Patient received 1 unit of packed RBCs in the ED, repeated 1PRB transfusion on 05/13 -Hb trending, Continue Close monitoring of CBC - Follow Hematology - Follow GI consult - Vitals every shift - Follow SPEP and UPEP, AdamT3 - calcium level normal - BMB done 05/17/17 - follow up BM results - Prednison 80mg/day administered, no improvement, discontinued - DIC panel trend daily - goal of care disscusion with family # Sclerotic lesions in CT scan Back pain: Since the patient has both renal impairment and hepatic impairment will avoid pain meds as possible Lidocaine patch Tylenol by mouth 500 mg every 8 when necessary Bone scan was done: In combination with the CT findings, this scan appearance is probably due to confluent metastatic disease to the osseous structures. A dominant focal abnormality is not present but there is diffusely increased activity in the calvarium and in both femurs and some prominence of the spine with mild heterogeneity, although not definitely outside the limits of normal in the spine, in combination with the other findings and CT appearance is most consistent with diffuse metastatic disease. - Follow with BM biopsy # Transaminitis: most likely metastaic liver disease Differential diagnosis includes liver metastasis, analgesic side effect, GI consult appreciated Monitor of liver function test RUQ ultrasound: 1. Abnormal sonographic appearance of the liver showing multifocal intrahepatic hypoechoic abnormalities, most consistent with metastatic disease. 2. Minimal nonspecific gallbladder wall thickening likely represents reactive changes from adjacent liver disease. - daily LFT followed #History of diabetes mellitus: Hold home meds Insulin sliding scale Fingerstick glucose #JOSUE/hyperkalemia Differential diagnosis includes a prerenal due to dehydration and poor oral intake, analgesic nephropathy, multiple myeloma. Cr today 0.9 - Avoid nephrotoxic medication - Close monitoring of kidney function - Intake and output #History of chronic medical condition includes hypertension, hyperlipidemia Continue home meds including metoprolol, verapamil - TUMS for heartburn after Calcium level normal Patient is full code DVT prophylaxis with Alps Problem List: 1. Liver lesion 2. Pancytopenia 3. Bone lesion 4. Breast cancer Pain Ratin Pain Location: Back Pain Goal: Pain 4 or less Pain Plan: Will add MS and dilaudid, consider gapapentin Tomorrow's Labs & Rationales: CBC BEP, DIC
[2017-05-18 09:04] LABS: MEAN CORPUSCULAR HGB 24.4 PG (27.0-31.0); MEAN CORPUSCULAR HGB CONC 32.9 G/DL (33.0-37.0); MEAN CORPUSCULAR VOLUME 74.2 FL (81.0-99.0); MEAN PLATELET VOLUME 7.4 FL (7.4-10.4); RBC DISTRIBUTION WIDTH 28.3 % (11.5-14.5)
--- NOTE | 2017-05-18 09:50 | PN- Att Addend ---
Attending Addendum Attending Brief Note Patient still very weak, very pale looking. Her vital signs are stable she has no fever. No major changes on physical if she had her bone biopsy yesterday, preliminary report is pending. Her DIC picture is worse, she still having some shortness of breath and some chest tightness, troponin was negative. Appreciate oncology's input and recommendations. We'll continue monitoring the blood closely, she may need liver biopsy if the bone biopsies nonrevealing. Will get an echocardiogram to assess cardiac function. Intake & Output 05/18 1600 05/18 0400 05/17 1600 05/17 0400 05/16 1600 05/16 0400 Intake Total 811 120 0522 705 1800 600 Output Total 391 320 7451 850 Balance 240 600 500 405 700 -250 Intake, IV 600 2516 456 3726 600 Intake, Oral 240 0 480 600 Number 1 Bowel Movements Output, Urine 935 144 9646 850 Current Medications Sig/Lori Start time Last Medication Dose Route Stop Time Status Admin Acetaminophen 500 MG Q8P PRN 05/12 0030 AC 05/16 PO 1054 Calcium Carbonate 500 MG DAILY 05/15 1400 AC 05/17 PO 0834 Dextrose/Sodium 1,000 ML Q13H 05/17 0000 DC 05/17 Chloride IV 0034 Diclofenac Sodium 1 JULIO 4 TIMES/DAY 05/13 1400 AC 05/17 TOP 2159 Fentanyl Citrate 0 .STK-MED ONE 05/17 0959 DC .ROUTE Flumazenil 0 .STK-MED ONE 05/17 1000 DC IV Insulin Aspart 0 TIDAC 05/17 1700 AC 05/17 SC 1642 Insulin Human Regular 0 Q6 05/16 2359 DC 05/17 SC 0526 Lidocaine 1 PAT Q24H 05/17 0800 AC 05/17 EXT 0833 Metoprolol Succinate 50 MG DAILY 05/12 1000 AC 05/17 PO 0834 Midazolam HCl 0 .STK-MED ONE 05/17 0959 DC .ROUTE Naloxone HCl 0 .STK-MED ONE 05/17 0959 DC .ROUTE Nystatin 1 JULIO BID 05/17 1000 AC 05/17 TOP 2159 Oxycodone/ 1 TAB ONCE ONE 05/17 1445 DC 05/17 Acetaminophen PO 05/17 1446 1512 Prednisone 80 MG DAILY 05/13 1630 AC 05/17 PO 0834 Senna/Docusate Sodium 1 TAB BID PRN 05/12 0030 AC PO Trimethobenzamide HCl 200 MG TID PRN 05/16 1215 AC 05/16 IM 1250 Verapamil HCl 200 MG DAILY 05/12 1000 AC 05/17 PO 0834 Laboratory Tests 05/18/17 0822: CBC w Diff Pending, WBC Pending, RBC Pending, Hgb Pending, Hct Pending, MCV Pending, MCH Pending, MCHC Pending, RDW Pending, Plt Count Pending, MPV Pending 05/18/17 0623: Anion Gap 18 H, Estimated GFR > 60, BUN/Creatinine Ratio 41.1 H, Total Bilirubin 1.5 H, Direct Bilirubin 1.0 H, AST 265 H, ALT 101 H, Alkaline Phosphatase 338 H, Total Protein 5.5 L, Albumin 3.0 L, PT Pending, INR Pending, APTT Pending, Fibrinogen Activity Pending, D-Dimer High Sensitivty Pending 05/17/17 1210: Leukemic Chromosome Anal Pending, Flow Cytometry Specimen Pending 05/17/17 0610: Anion Gap 15, Estimated GFR > 60, BUN/Creatinine Ratio 43.3 H, Total Bilirubin 1.1, Direct Bilirubin 0.7 H, AST 265 H, ALT 119 H, Alkaline Phosphatase 340 H, Troponin I 0.08, Cow-E-Qnipkyxxzlx Pept 68269 H, Total Protein 5.1 L, Albumin 2.7 L, PT 13.6 H, INR 1.30 H, APTT < 20 L, Fibrinogen Activity 187 L, D-Dimer High Sensitivty 1665 H, CBC w Diff MAN DIFF ORDERED, RBC 3.12 L, MCV 74.2 L, MCH 24.8 L, MCHC 33.4, RDW 27.9 H, MPV 7.4, Segmented Neutrophils 61, Band Neutrophils 7 H, Lymphocytes 26, Monocytes 2, Eosinophils 1, Metamyelocytes 2 H, Myelocytes 1 H, Nucleated RBCs 19 H, Platelet Estimate , Polychromasia 1+, Hypochromic-Microcytic 2+, Poikilocytosis 3+, Basophilic Stippling , Anisocytosis 3+, Microcytic Cells 2+, Ovalocytes 2+, Schistocytes 2+ 05/16/17 0734: Anion Gap 15, Estimated GFR > 60, BUN/Creatinine Ratio 42.2 H, Total Bilirubin 1.4 H, Direct Bilirubin 0.9 H, AST 266 H, ALT 111 H, Alkaline Phosphatase 344 H, Total Protein 5.1 L, Albumin 2.7 L, PT 13.5 H, INR 1.29 H, APTT 21 L, Fibrinogen Activity 218, D-Dimer High Sensitivty 1657 H, CBC w Diff MAN DIFF ORDERED, RBC 3.20 L, MCV 74.8 L, MCH 24.3 L, MCHC 32.5 L, RDW 27.0 H, MPV 8.0, Segmented Neutrophils 56, Band Neutrophils 5, Lymphocytes 29, Monocytes 5, Metamyelocytes 1, Myelocytes 4 H, Nucleated RBCs 17 H, Platelet Estimate DECREASED, Polychromasia 2+, Hypochromic-Microcytic 2+, Poikilocytosis 1+, Anisocytosis 2+, Microcytic Cells 2+ 05/15/171855: CBC w Diff NO MAN DIFF REQ, RBC 3.32 L, MCV 73.7 L, MCH 24.7 L, MCHC 33.6, RDW 26.3 H, MPV 7.6 Vital Signs Date Time Temp Pulse Resp B/P B/P Pulse O2 O2 Flow FiO2 Mean Ox Delivery Rate 05/18 0726 97.6 86 20 124/66 92 05/17 2226 97.8 85 20 126/70 93 Room Air
[2017-05-18 10:10] LABS: PLATELET COUNT 63 /CUMM (130-400)
[2017-05-18 10:12] LABS: WHITE BLOOD CELL COUNT 4.5 /CUMM (4.8-10.8)
[2017-05-18 12:09] VITALS: BP 130/62
--- NOTE | 2017-05-18 13:19 | RADIOLOGY REPORT ---
EXAMINATION: XR PORTABLE CHEST CLINICAL INFORMATION: 76-year-old female with acute dyspnea. Increased work of breathing. Per chart: Pancytopenia. COMPARISON: Portable chest x-rays on 05/11/2017 and 05/17/2017. CT of the chest on 05/12/2017. TECHNIQUE: Portable AP semierect view of the chest was obtained. FINDINGS: Reexamination shows no evidence of pulmonary consolidation or edema. The main pulmonary segment is prominent as before. No pleural effusion is detected. IMPRESSION: No pneumonia. Prominent main pulmonary artery segment.
[2017-05-18 13:22] LABS: PT 13.7 SEC (9.4-12.5); PTT < 20 SEC (25-37)
[2017-05-18 14:45] VITALS: BP 126/78
--- NOTE | 2017-05-18 16:34 | Event Note ---
Event Note Event Note: Situation Family requested for meeting regarding plan of care Background 76 years old female with past medical history of hypertension, hyperlipidemia, skin cancer of the left leg S/P excision on 08/2016,BRBPR and sigmoid polyp S/P polypectomy on 10/2010, diverticulosis, internal hemorrhoid, breast cancer S/P lumpectomy on 10/2010 after which she was treated with chemotherapy and radiotherapy. Patient comes to the ED complaining of weakness, exertional shortness of breath for one week, dizziness back pain and spasm of the back muscles for 1 week for which the patient was taking [id number] Motrin 200 mg 3 tablets daily for the past 3 days, in addition to nausea and vomiting and poor oral intake which Explained her JOSUE Patient was found to have multiple metastatic lesions in the bones explaining possible pancytopenia. Bone marrow signal was done yesterday and were pending result. Assessment and plan Family requested to provide patient with enough pain medication. The CODE STATUS was changed to DNR/DNI. Hospice nurse was contacted and family are going to have discussion regarding plan of care with her.
--- NOTE | 2017-05-18 17:00 | ECHOCARDIOGRAM REPORT ---
BOUCHRA LOZADA Age: 76 : 1940 Gender: F Exam Date: 05/18/2017 11:11 Exam Location: [address] [place] [address] Ht (in): 63 Wt (lb): 175 BSA: 1.91 BP: 124 / 66 Ordering Physician: Phoenix Hewitt MD Referring Physician: Phoenix Hewitt MD Technologist: Cirilo Ramirez [facility] Room Number: 203-1 Indications: HEART FAILURE Rhythm: Sinus Technical Quality: Technically difficult study FINDINGS Left Ventricle Normal size left ventricle. Mild concentric left ventricular hypertrophy. Left ventricular ejection fraction is estimated at 55 %. No obvious regional wall motion abnormalities. Right Ventricle Normal right ventricular size and function. Right Atrium Normal right atrial size. Left Atrium Mild left atrial dilatation. Mitral Valve Mild mitral annular calcification. Mild to moderate mitral regurgitation. Aortic Valve Diffuse thickening of the aortic valve cusps. Borderline aortic stenosis. No aortic regurgitation. Tricuspid Valve Tricuspid valve not well visualized, grossly normal. Mild tricuspid regurgitation. Right ventricular systolic pressure estimated to be elevated at 53 mmHg. Pulmonic Valve Pulmonic valve not well visualized, grossly normal. Trace pulmonic regurgitation. Pericardium No pericardial effusion. Great Vessels Normal size aortic root. CONCLUSIONS Normal size left ventricle. Mild concentric left ventricular hypertrophy. Left ventricular ejection fraction is estimated at 55 %. Mild left atrial dilatation. Mild to moderate mitral regurgitation. Borderline aortic stenosis. Mild tricuspid regurgitation. Right ventricular systolic pressure estimated to be elevated at 53 mmHg. Trace pulmonic regurgitation. Azar Layton M.D. (Electronically Signed) Final Date: 18 May 2017 16:58 MEASUREMENTS (Male / Female) Normal Values 2D ECHO LV Diastolic Diameter PLAX 4.8 cm 4.2 - 5.9 / 3.9 - 5.3 cm LV Systolic Diameter PLAX 3.7 cm 2.1 - 4.0 cm LV Fractional Shortening PLAX 22.9 % 25 - 46 % LV Ejection Fraction 2D Teich 45.9 % IVS Diastolic Thickness 1.3 cm LVPW Diastolic Thickness 1.3 cm LV Relative Wall Thickness 0.5 RV Internal Dim ED PLAX 3.4 cm 1.9 - 3.8 cm LVOT Diameter 1.7 cm Aortic Root Diameter 2.5 cm LA Systolic Diameter LX 4.0 cm 3.0 - 4.0 / 2.7 - 3.8 cm LA Volume 66.0 cm 18 - 58 / 22 - 52 cm Ascending Aorta Diameter 2.9 cm DOPPLER AV Peak Velocity 200.0 cm/s AV Peak Gradient 16.0 mmHg AV Mean Velocity 130.0 cm/s AV Mean Gradient 8.0 mmHg AV Velocity Time Integral 40.6 cm LVOT Peak Velocity 104.0 cm/s LVOT Peak Gradient 4.3 mmHg LVOT Mean Velocity 65.2 cm/s LVOT Mean Gradient 2.0 mmHg LVOT Velocity Time Integral 21.1 cm LVOT Stroke Volume 47.9 cm AV Area Cont Eq vti 1.2 cm AV Area Cont Eq pk 1.2 cm MV Peak Velocity 114.0 cm/s MV Peak Gradient 5.2 mmHg MV Mean Velocity 72.4 cm/s MV Mean Gradient 2.0 mmHg Mitral E Point Velocity 110.5 cm/s Mitral A Point Velocity 92.8 cm/s Mitral E to A Ratio 1.2 MV PHT Velocity 117.0 cm/s MV Deceleration Greenlee 525.0 cm/s MV Pressure Half Time 66.9 ms MV Area PHT 3.3 cm MV Deceleration Time 134.0 ms MR Peak Velocity 566.0 cm/s MR Peak Gradient 128.1 mmHg TR Peak Velocity 331.0 cm/s TR Peak Gradient 43.8 mmHg Right Atrial Pressure 10.0 mmHg Pulmonary Artery Systolic Pressu 53.8 mmHg Right Ventricular Systolic Press 53.8 mmHg PV Peak Velocity 69.2 cm/s PV Peak Gradient 1.9 mmHg PV Mean Velocity 55.9 cm/s PV Mean Gradient 1.0 mmHg PV Velocity Time Integral 16.3 cm LV E' Lateral Velocity 10.0 cm/s Mitral E to LV E' Lateral Ratio 11.1 LV E' Septal Velocity 6.4 cm/s Mitral E to LV E' Septal Ratio 17.2
[2017-05-18 22:39] VITALS: BP 136/70
[2017-05-19 06:46] VITALS: BP 114/66
--- NOTE | 2017-05-19 07:51 | PN- Housestaff ---
Subjective Follow-up For: Pancytopenia Bone lesions history of breast and skin cancer transaminitis Subjective: Patient visited today, ill looking lady, was lying in bed in no minimal distress , was alert and oriented, could remember tomorrow is duathers birthday. No fever or chills, had shortness of breathing CXR was done wich Pulm artery was prominant, considering CTA would not change plan (considering goals of care per family and Plt count) was not performed, no chest pain, no other events. DIC panel was being followed (getting worse). Blood count levels were pretty stable. pain medications ordered and patient was infromed to request for medication if she needs. Pathology results from bone marrow revealed breast cancer, had meeting with family, updated them regarding the pathology results. Family were already considering hospice, plan in place for transfer. Informed Dr Elizondo about the pathology, noted although hormonal tx could help, chemotherapy is not indicated considering overall patient's condition, overall prognosis is poor and the family decision is not unreasonable. Review of Systems Constitutional: Reports: see HPI. Objective Last 24 Hrs of Vital Signs/I&O Vital Signs Date Time Temp Pulse Resp B/P B/P Pulse O2 O2 Flow FiO2 Mean Ox Delivery Rate 05/19 0646 97.8 84 18 114/66 97 Nasal 2.0L Cannula 05/19 0000 Nasal 2.0L Cannula 05/18 2239 136/70 05/18 2228 98.2 87 20 98 Nasal 2.0L Cannula 05/18 1600 95 Nasal 2.0L Cannula 05/18 1445 97.8 84 20 126/78 95 Nasal 2.0L Cannula 05/18 1210 22 97 Nasal 2.0L Cannula 05/18 1209 92 28 130/62 94 Nasal 2.0L Cannula Intake & Output 05/19 1600 05/19 0800 05/19 0000 Intake Total 200 100 Output Total 300 150 Balance -100 -50 Intake, Oral 200 100 Output, Urine 300 150 Physical Exam General Appearance: Alert, Oriented X3, Cooperative, Mild Distress (to moderate, due to pain) Skin: No Significant Lesion, IV line erytematous lesions, no bleeding noted in other sites. Skin Temp/Moisture Exam: Warm/Dry Sepsis Skin Exam (color): Normal for Ethnicity HEENT: Atraumatic, EOMI, Mucous Membr. moist/pink Cardiovascular: Normal S1, Normal S2 Lungs: decreased breathing sounds, shallow breathing Abdomen: No Tenderness, Hepatomegaly, abnormal contour Neurological: Normal Speech Extremities: +1-2 LE edema Current Medications: Current Medications Sig/Lori Start time Last Medication Dose Route Stop Time Status Admin Acetaminophen 500 MG Q8P PRN 05/12 0030 AC 05/18 PO 1000 Calcium Carbonate 500 MG DAILY 05/15 1400 AC 05/19 PO 0917 Diclofenac Sodium 1 JULIO 4 TIMES/DAY 05/13 1400 AC 05/18 TOP 1741 Insulin Aspart 0 TIDAC 05/17 1700 AC 05/17 SC 1642 Lidocaine 1 PAT Q24H 05/17 0800 AC 05/19 EXT 0917 Metoprolol Succinate 50 MG DAILY 05/12 1000 AC 05/19 PO 0916 Morphine Sulfate 2 MG Q6P PRN 05/19 0945 AC 05/19 IV 0945 Nystatin 1 JULIO BID 05/17 1000 AC 05/19 TOP 0918 Patient Medication 1 ED ONE ONE 05/18 1145 DC 05/18 Teaching ED 05/18 1146 1209 Senna/Docusate Sodium 1 TAB BID PRN 05/12 0030 AC PO Trimethobenzamide HCl 200 MG TID PRN 05/16 1215 AC 05/16 IM 1250 Verapamil HCl 200 MG DAILY 05/12 1000 AC 05/19 PO 0915 Last 24 Hrs of Lab/Jim Results Last 24 Hrs of Labs/Mics: Laboratory Tests 05/19/17 0922: Anion Gap 16, Estimated GFR > 60, BUN/Creatinine Ratio 46.3 H, CBC w Diff MAN DIFF ORDERED, RBC 3.05 L, MCV 74.3 L, MCH 24.5 L, MCHC 33.0, RDW 27.7 H, MPV 7.5, Segmented Neutrophils 56, Band Neutrophils 8 H, Lymphocytes 22, Monocytes 10 H, Metamyelocytes 3 H, Myelocytes 1 H, Nucleated RBCs 29 H, Platelet Estimate DECREASED, Polychromasia 1+, Hypochromic-Microcytic 1+, Poikilocytosis 2+, Basophilic Stippling SLIGHT, Anisocytosis 2+, Microcytic Cells 1+, Ovalocytes 1+, Schistocytes 05/19/17 0735: PT 14.6 H, INR 1.40 H, APTT < 20 L, Fibrinogen Activity 187 L, D-Dimer High Sensitivty 2204 H 05/18/17 1201: PT 13.7 H, INR 1.31 H, APTT < 20 L, Fibrinogen Activity 218, D-Dimer High Sensitivty 2257 H Assessment/Plan Assessment: 76 years old female with past medical history of hypertension, hyperlipidemia, skin cancer of the left leg S/P excision on 08/2016,BRBPR and sigmoid polyp S/P polypectomy on 10/2010, diverticulosis, internal hemorrhoid, breast cancer S/P lumpectomy on 10/2010 after which she was treated with chemotherapy and radiotherapy. 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 Other possibilities include leukemia/ lymphoma with cold autoimmune hemolysis as well as bone marrow metstatis. Bone scan was performed as below which suggested possble metastatic lesion. Bone marrow biopsy was not performed due to low plt count, we will follow on tuesday for Plt transfusion and BMB. -Continue Admit to general medical floor -Patient received 1 unit of packed RBCs in the ED, repeated 1PRB transfusion on 05/13 -Hb trending, Continue Close monitoring of CBC - Follow Hematology - Follow GI consult - Vitals every shift - Follow SPEP and UPEP, AdamT3 - calcium level normal - BMB done 05/17/17, preliminary results showed breast cancer - Despite hormonal therapy could help, overall prognosis very poor, hospice not unreasonable, chemotherapy not indicated considering overall comorbidities - Prednison 80mg/day administered, no improvement, discontinued - DIC panel trended daily, overall worsening - goal of care disscusion with family - family decided to change patient to hospice, patient in agreement - pain medications ordered PRN # Sclerotic lesions in CT scan Back pain: Since the patient has both renal impairment and hepatic impairment will avoid pain meds as possible Lidocaine patch Tylenol by mouth 500 mg every 8 when necessary Bone scan was done: In combination with the CT findings, this scan appearance is probably due to confluent metastatic disease to the osseous structures. A dominant focal abnormality is not present but there is diffusely increased activity in the calvarium and in both femurs and some prominence of the spine with mild heterogeneity, although not definitely outside the limits of normal in the spine, in combination with the other findings and CT appearance is most consistent with diffuse metastatic disease. - patient decided # Transaminitis: most likely metastaic liver disease Differential diagnosis includes liver metastasis, analgesic side effect, GI consult appreciated Monitor of liver function test RUQ ultrasound: 1. Abnormal sonographic appearance of the liver showing multifocal intrahepatic hypoechoic abnormalities, most consistent with metastatic disease. 2. Minimal nonspecific gallbladder wall thickening likely represents reactive changes from adjacent liver disease. #History of diabetes mellitus: Hold home meds Insulin sliding scale Fingerstick glucose #JOSUE/hyperkalemia Differential diagnosis includes a prerenal due to dehydration and poor oral intake, analgesic nephropathy, multiple myeloma. Cr today 0.9 - Avoid nephrotoxic medication - Close monitoring of kidney function - Intake and output #History of chronic medical condition includes hypertension, hyperlipidemia Continue home meds including metoprolol, verapamil - TUMS for heartburn after Calcium level normal - patient hospice Patient is DNI/DNR considering hospice DVT prophylaxis with Alps Problem List: 1. Breast cancer 2. Metastatic breast cancer Pain Ratin (doest not note pain) Pain Location: back Pain Goal: Pain 4 or less Pain Plan: MS q6 PRN Tomorrow's Labs & Rationales: NA Discharge Plan Discharge Disposition: Hospice
--- NOTE | 2017-05-19 08:18 | PN- Hematology ---
Subjective Subjective: She continues have some shortness of breath and chest pain on the left side. She denies any nausea or vomiting. She has no fever or chills. Review of Systems Constitutional: Denies: chills, fever. Cardiovascular: Reports: chest pain. Respiratory: Reports: cough, short of breath. Denies: sputum production. Gastrointestinal: Denies: abdominal pain. Musculoskeletal: Reports: back pain. Neurological/Psychological: Reports: anxiety. Denies: confusion. Hematologic/Endocrine: Reports: bleeding. All Other Systems: Reviewed and Negative Objective Vital Signs and I&Os Vital Signs Date Time Temp Pulse Resp B/P B/P Pulse O2 O2 Flow FiO2 Mean Ox Delivery Rate 05/19 0646 97.8 84 18 114/66 97 Nasal 2.0L Cannula 05/19 0000 Nasal 2.0L Cannula 05/18 2239 136/70 05/18 2228 98.2 87 20 98 Nasal 2.0L Cannula 05/18 1600 95 Nasal 2.0L Cannula 05/18 1445 97.8 84 20 126/78 95 Nasal 2.0L Cannula 05/18 1210 22 97 Nasal 2.0L Cannula 05/18 1209 92 28 130/62 94 Nasal 2.0L Cannula 05/18 1000 86 124/66 Intake & Output 05/19 1600 05/19 0800 05/19 0000 05/18 1600 05/18 0800 05/18 0000 Intake Total 200 100 240 600 Output Total 300 150 Balance -100 -50 240 600 Intake, IV 600 Intake, Oral 200 100 240 Number 0 Bowel Movements Output, Urine 300 150 Physical Exam: General Appearance: well developed/nourished, no apparent distress, alert, awake , comfortable, obese Respiratory: normal breath sounds, chest non-tender, tachypnea, on O2 Cardiovascular: regular rate/rhythm Gastrointestinal: normal bowel sounds, soft, non-tender, no organomegaly Extremities: no edema Neurologic/Psych: awake, alert, disoriented to year Skin: ecchymosis (upper extremities) Lymphatic: no adenopathy Current Medications: Current Medications Sig/Lori Start time Last Medication Dose Route Stop Time Status Admin Acetaminophen 500 MG Q8P PRN 05/12 0030 AC 05/18 PO 1000 Calcium Carbonate 500 MG DAILY 05/15 1400 AC 05/18 PO 1000 Diclofenac Sodium 1 JULIO 4 TIMES/DAY 05/13 1400 AC 05/18 TOP 1741 Hydromorphone HCl 2 MG ONCE ONE 05/18 1000 DC 05/18 PO 05/18 1001 1009 Insulin Aspart 0 TIDAC 05/17 1700 AC 05/17 SC 1642 Lidocaine 1 PAT Q24H 05/17 0800 AC 05/18 EXT 1000 Metoprolol Succinate 50 MG DAILY 05/12 1000 AC 05/18 PO 1000 Nystatin 1 JULIO BID 05/17 1000 AC 05/18 TOP 1000 Patient Medication 1 ED ONE ONE 05/18 1145 DC 05/18 Teaching ED 05/18 1146 1209 Prednisone 80 MG DAILY 05/13 1630 DC 05/18 PO 1000 Senna/Docusate Sodium 1 TAB BID PRN 05/12 0030 AC PO Trimethobenzamide HCl 200 MG TID PRN 05/16 1215 AC 05/16 IM 1250 Verapamil HCl 200 MG DAILY 05/12 1000 AC 05/18 PO 1000 Results Last 24 Hours of Lab Results: Laboratory Tests 05/19 05/18 05/18 0735 1201 0822 Chemistry Sodium Pending Potassium Pending Chloride Pending Carbon Dioxide Pending Anion Gap Pending BUN Pending Creatinine Pending BUN/Creatinine Ratio Pending Coagulation PT (9.4 - 12.5 SEC) Pending 13.7 H INR (0.90 - 1.19) Pending 1.31 H APTT (25 - 37 SEC) Pending < 20 L Fibrinogen Activity (200 - 393 MG/DL) Pending 218 D-Dimer High Sensitivty (0 - 243 ng/ml) Pending 2257 H Hematology CBC w Diff Pending MAN DIFF ORDERED WBC (4.8 - 10.8 /CUMM) Pending 4.5 L RBC (4.20 - 5.40 /CUMM) Pending 3.10 L Hgb (12.0 - 16.0 G/DL) Pending 7.6 L Hct (37 - 47 %) Pending 23.0 L MCV (81.0 - 99.0 FL) Pending 74.2 L MCH (27.0 - 31.0 PG) Pending 24.4 L MCHC (33.0 - 37.0 G/DL) Pending 32.9 L RDW (11.5 - 14.5 %) Pending 28.3 H Plt Count (130 - 400 /CUMM) Pending 63 L MPV (7.4 - 10.4 FL) Pending 7.4 Segmented Neutrophils (42.2 - 75.2 %) 67 Band Neutrophils (0.0 - 5.0 %) 3 Lymphocytes (20.5 - 51.1 %) 20 L Monocytes (1.7 - 9.3 %) 7 Metamyelocytes (0.0 - 1.0 %) 3 H Nucleated RBCs (0.0 - 0.0 /100WBC) 35 H Polychromasia 2+ Poikilocytosis 3+ Anisocytosis 3+ Microcytic Cells 3+ Ovalocytes 1+ Schistocytes FEW Recent Imaging Studies: Echocardiogram 05/18/2017: Normal size left ventricle. Mild concentric left ventricular hypertrophy. Left ventricular ejection fraction is estimated at 55 %. Mild left atrial dilatation. Mild to moderate mitral regurgitation. Borderline aortic stenosis. Mild tricuspid regurgitation. Right ventricular systolic pressure estimated to be elevated at 53 mmHg. Trace pulmonic regurgitation. Assessment/Plan Hematology Assessment/Recommendations: Ms. Rascon is a 76-year-old female with history of thalassemia, breast cancer status post lumpectomy, chemotherapy, radiation, and endocrine therapy, hypertension, hyperlipidemia, skin cancer of the left leg S/P excision on 2016, sigmoid polyp s/p polypectomy on 10/2010, diverticulosis, and internal hemorrhoid who presented to the hospital with weakness and exertional dyspnea for 1 week. On admission, she was noted to have worsening anemia, new renal failure, and thrombocytopenia. Creatinine was 2.5. She was noted to have elevated ferritin and LDH. Bilirubin was slightly elevated at 1.4 (normal 1.3). LFT was also elevated. She does have a somewhat elevated LFT at baseline from outpatient laboratory. Folate and B12 levels are normal. KERWIN is negative. Peripheral blood smear is abnormal with numerous target cells, ovalocytes, jacky cell, elliptocytes, anisocytosis, poikilocytosis, basophilic stippling, tear drops cells, rare schistocyte, and nucleated RBC. CBC demonstrating myelophthisic process. LFT is stable. DIC panel remains relatively positive. Platelet count response to transfusion. Bone marrow biopsy results are pending. Hopefully prelim will return today. If unrevealing, she will need liver biopsy. She remains short of breath with some chest pain. She is now on oxygen. She should have this evaluated. Consider V/Q scan vs CTA chest. Echocardiogram demonstrated elevate RV presure. EF is normal at 55%. She may benefit from pRBC transfusion given dyspnea. She should work with physical therapy. She will likely need to be discharged to a STR/SNF. Dyspnea with chest pain: -consider V/Q scan or CTA chest Pancytopenia: -Followed bone marrow biopsy -Follow up on DIC panel -consider transfusion with pRBC given dsypnea Sclerotic bone lesion: -bone biopsy as above -follow up pathology Liver lesions: -may need a liver biopsy if bone marrow biopsy is unrevealing Breast cancer: -follow up with Dr. Aiken as scheduled Please call [phone] with any questions or concerns. Problem List: 1. Breast cancer 2. Liver lesion 3. Bone lesion 4. Pancytopenia
[2017-05-19 08:19] LABS: PT 14.6 SEC (9.4-12.5); PTT < 20 SEC (25-37)
[2017-05-19 10:21] LABS: HEMATOCRIT 22.6 % (37-47); MEAN CORPUSCULAR HGB 24.5 PG (27.0-31.0); MEAN CORPUSCULAR VOLUME 74.3 FL (81.0-99.0); MEAN PLATELET VOLUME 7.5 FL (7.4-10.4); PLATELET COUNT 62 /CUMM (130-400); RBC DISTRIBUTION WIDTH 27.7 % (11.5-14.5); RED BLOOD CELL CT 3.05 /CUMM (4.20-5.40)
--- NOTE | 2017-05-19 11:15 | PN- Att Addend ---
Attending Addendum Attending Brief Note Patient comfortable, family at the bedside vital signs are stable no fever but no new changes on physical. Waiting for the biopsy report depending on the results we will decide where to hospice care would be provided to the patient. Intake & Output 05/19 1600 05/19 0400 05/18 1600 05/18 0400 05/17 1600 05/17 0400 Intake Total 200 100 952 434 8279 705 Output Total 300 150 700 300 Balance -100 -50 240 600 500 405 Intake, IV 600 1200 225 Intake, Oral 200 100 240 0 480 Number 0 Bowel Movements Output, Urine 300 150 700 300 Current Medications Sig/Lori Start time Last Medication Dose Route Stop Time Status Admin Acetaminophen 500 MG Q8P PRN 05/12 0030 AC 05/18 PO 1000 Calcium Carbonate 500 MG DAILY 05/15 1400 AC 05/19 PO 0917 Diclofenac Sodium 1 JULIO 4 TIMES/DAY 05/13 1400 AC 05/18 TOP 1741 Insulin Aspart 0 TIDAC 05/17 1700 AC 05/17 SC 1642 Lidocaine 1 PAT Q24H 05/17 0800 AC 05/19 EXT 0917 Metoprolol Succinate 50 MG DAILY 05/12 1000 AC 05/19 PO 0916 Morphine Sulfate 2 MG Q6P PRN 05/19 0945 AC 05/19 IV 0945 Nystatin 1 JULIO BID 05/17 1000 AC 05/19 TOP 0918 Patient Medication 1 ED ONE ONE 05/18 1145 DC 05/18 Teaching ED 05/18 1146 1209 Prednisone 80 MG DAILY 05/13 1630 DC 05/18 PO 1000 Senna/Docusate Sodium 1 TAB BID PRN 05/12 0030 AC PO Trimethobenzamide HCl 200 MG TID PRN 05/16 1215 AC 05/16 IM 1250 Verapamil HCl 200 MG DAILY 05/12 1000 AC 05/19 PO 0915 Laboratory Tests 05/19/17 0922: Anion Gap 16, Estimated GFR > 60, BUN/Creatinine Ratio 46.3 H, CBC w Diff MAN DIFF ORDERED, WBC Pending, RBC Pending, Hgb Pending, Hct Pending, MCV Pending, MCH Pending, MCHC Pending, RDW Pending, Plt Count Pending, MPV Pending, Segmented Neutrophils Pending 05/19/17 0735: PT 14.6 H, INR 1.40 H, APTT < 20 L, Fibrinogen Activity 187 L, D-Dimer High Sensitivty 2204 H 05/18/17 1201: PT 13.7 H, INR 1.31 H, APTT < 20 L, Fibrinogen Activity 218, D-Dimer High Sensitivty 2257 H 05/18/17 0822: CBC w Diff MAN DIFF ORDERED, RBC 3.10 L, MCV 74.2 L, MCH 24.4 L, MCHC 32.9 L , RDW 28.3 H, MPV 7.4, Segmented Neutrophils 67, Band Neutrophils 3, Lymphocytes 20 L, Monocytes 7, Metamyelocytes 3 H, Nucleated RBCs 35 H, Polychromasia 2+, Poikilocytosis 3+, Anisocytosis 3+, Microcytic Cells 3+, Ovalocytes 1+, Schistocytes FEW 05/18/17 0623: Anion Gap 18 H, Estimated GFR > 60, BUN/Creatinine Ratio 41.1 H, Total Bilirubin 1.5 H, Direct Bilirubin 1.0 H, AST 265 H, ALT 101 H, Alkaline Phosphatase 338 H, Total Protein 5.5 L, Albumin 3.0 L 05/17/17 1210: Leukemic Chromosome Anal Pending, Flow Cytometry Specimen Pending 05/17/17 0610: Anion Gap 15, Estimated GFR > 60, BUN/Creatinine Ratio 43.3 H, Total Bilirubin 1.1, Direct Bilirubin 0.7 H, AST 265 H, ALT 119 H, Alkaline Phosphatase 340 H, Troponin I 0.08, Kfj-M-Lfkkiaawioz Pept 16288 H, Total Protein 5.1 L, Albumin 2.7 L, PT 13.6 H, INR 1.30 H, APTT < 20 L, Fibrinogen Activity 187 L, D-Dimer High Sensitivty 1665 H, CBC w Diff MAN DIFF ORDERED, RBC 3.12 L, MCV 74.2 L, MCH 24.8 L, MCHC 33.4, RDW 27.9 H, MPV 7.4, Segmented Neutrophils 61, Band Neutrophils 7 H, Lymphocytes 26, Monocytes 2, Eosinophils 1, Metamyelocytes 2 H, Myelocytes 1 H, Nucleated RBCs 19 H, Platelet Estimate , Polychromasia 1+, Hypochromic-Microcytic 2+, Poikilocytosis 3+, Basophilic Stippling , Anisocytosis 3+, Microcytic Cells 2+, Ovalocytes 2+, Schistocytes 2+ Vital Signs Date Time Temp Pulse Resp B/P B/P Pulse O2 O2 Flow FiO2 Mean Ox Delivery Rate 05/19 0646 97.8 84 18 114/66 97 Nasal 2.0L Cannula 05/19 0000 Nasal 2.0L Cannula 05/18 2239 136/70 05/18 2228 98.2 87 20 98 Nasal 2.0L Cannula 05/18 1600 95 Nasal 2.0L Cannula 05/18 1445 97.8 84 20 126/78 95 Nasal 2.0L Cannula 05/18 1210 22 97 Nasal 2.0L Cannula 05/18 1209 92 28 130/62 94 Nasal 2.0L Cannula
[2017-05-19 11:22] LABS: WHITE BLOOD CELL COUNT 5.3 /CUMM (4.8-10.8)
[2017-05-19] MEDS ORDERED: NYSTATIN15 G1 TOP (11:55)
[2017-05-19] MEDS ORDERED: TIGAN100 MG/1 M IM (11:55)
[2017-05-19] MEDS ORDERED: MORPHINE SU4 MG/1 M2 IV (11:55)
--- NOTE | 2017-05-19 12:16 | Patient Discharge Instructions ---
Discharge Instructions General Discharge Information You were seen/treated for: Metastatic breast cancer You had these procedures: Bone marrow biopsy Special Instructions: Please contact that is any questions. Please ask for pain medications if needed. Please contact Dr. Aiken if you want to change her decision regarding management of your cancer. Diet Continue normal diet: Yes (Considering code status) Activity Full Activity/No Limits: No Activity Self Limited: Yes (as tolerated) Acute Coronary Syndrome Inclusion Criteria At DC or during hospital stay patient has or had the following: ACS DIAGNOSIS No Discharge Core Measures Meds if any: Prescribed or Continued at Discharge Meds if any: NOT Prescribed or Continued at Discharge Congestive Heart Failure Inclusion Criteria At DC or during hospital stay patient has or had the following: CHF DIAGNOSIS No Discharge Core Measures Meds if any: Prescribed or Continued at Discharge Meds if any: NOT Prescribed or Continued at Discharge Cerebrovascular accident Inclusion Criteria At DC or during hospital stay patient has or had the following: CVA/TIA Diagnosis No Discharge Core Measures Meds if any: Prescribed or Continued at Discharge Meds if any: NOT Prescribed or Continued at Discharge Venous thromboembolism Inclusion Criteria VTE Diagnosis No VTE Type NONE VTE Confirmed by (Test) NONE Discharge Core Measures - Per Current guidelines, there needs to be overlap - treatment for the first 5 days of Warfarin therapy. - If discharged on Warfarin prior to 5 days of - overlap therapy, the patient will need to be - assessed for post discharge needs including - *Post discharge parental anticoagulation - *Warfarin and/or parental anticoagulation education - *Follow up date to check INR post discharge At least 5 days overlap therapy as Inpatient No Meds if any: Prescribed or Continued at Discharge Note: Overlap Therapy is Warfarin and Anticoagulant Meds if any: NOT Prescribed or Continued at Discharge
--- NOTE | 2017-05-19 12:58 | Discharge Summary ---
Visit Information Visit Dates Admission Date: 05/11/17 Discharge Date: 05/19/2017 Hospital Course Course Attending Physician: Orestes Huang MD Primary Care Physician: Orestes Huang MD Hospital Course: 76 years old female with past medical history of hypertension, hyperlipidemia, skin cancer of the left leg S/P excision on 08/2016,BRBPR and sigmoid polyp S/P polypectomy on 10/2010, diverticulosis, internal hemorrhoid, breast cancer S/P lumpectomy on 10/2010 after which she was treated with chemotherapy and radiotherapy. Patient comes to the ED complaining of weakness, exertional shortness of breath for one week, dizziness back pain and spasm of the back muscles for 1 week for which the patient was taking [id number] Motrin 200 mg 3 tablets daily for the past 3 days, in addition to nausea and vomiting and poor oral intake which Explained her JOSUE. Patient was admitted to general medicine floor for management of following condition: #Pancytopenia Differential diagnosis also includesd multiple myeloma since she has renal impairment in addition to pancytopenia. Other possibilities included leukemia/ lymphoma with cold autoimmune hemolysis as well as bone marrow metstatis. Work up was started to evalaute the pathology. CT scan was performed: 1. Diffuse sclerotic lesions throughout the osseous structures suggestive of metastatic disease. Mild compression deformity of the L3 vertebral body of uncertain chronicity. 2. Minimal groundglass opacities in the lungs. A component of mild edema is possible. 3. No acute inflammatory changes of the abdomen or pelvis. Scattered diverticulosis without diverticulitis. Bone scan was performed as below which suggested possble metastatic lesion. Patient recieved 2 units of PRBC. Moreover platelet was transfused before bone marrow biopsy. BM biopsy was done: A. BONE MARROW SITE #1, BIOPSY AND ASPIRATION: INVASIVE CARCINOMA WITH SIGNET RING CELLS, HISTOLOGICALLY COMPATIBLE WITH METASTATIC BREAST LOBULAR CARCINOMA. B. BONE LESION, SITE #2, BIOPSY: INVASIVE CARCINOMA WITH SIGNET RING CELLS, HISTOLOGICALLY COMPATIBLE WITH METASTATIC BREAST LOBULAR CARCINOMA. Prednison 80mg/day administered as empiric treatmnent, no improvement was observed and was discontinued. DIC panel trended daily, overall worsening, d- dimer increasing, Finrinogen level decreasing. Had discussion with family regarding goals of care. Pathology results from bone marrow revealed breast cancer, had meeting with family, updated them regarding the pathology results. Family were already considering hospice, plan in place for transfer. Informed Dr Elizondo about the pathology, noted although hormonal tx could help, chemotherapy is not indicated considering overall patient's condition, overall prognosis is poor and the family decision is not unreasonable. # Sclerotic lesions in CT scan Back pain: Since the patient has both renal impairment and hepatic impairment will avoid pain meds as possible Lidocaine patch Tylenol by mouth 500 mg every 8 when necessary Bone scan was done: In combination with the CT findings, this scan appearance is probably due to confluent metastatic disease to the osseous structures. A dominant focal abnormality is not present but there is diffusely increased activity in the calvarium and in both femurs and some prominence of the spine with mild heterogeneity, although not definitely outside the limits of normal in the spine, in combination with the other findings and CT appearance is most consistent with diffuse metastatic disease. -Plan as noted above # Transaminitis: most likely metastaic liver disease Differential diagnosis includes liver metastasis, analgesic side effect, GI consult appreciated Monitor of liver function test RUQ ultrasound: 1. Abnormal sonographic appearance of the liver showing multifocal intrahepatic hypoechoic abnormalities, most consistent with metastatic disease. 2. Minimal nonspecific gallbladder wall thickening likely represents reactive changes from adjacent liver disease. -Plan as noted above #History of diabetes mellitus: Hold home meds, while in hospital Insulin sliding scale Fingerstick glucose #JOSUE/hyperkalemia Differential diagnosis includes a prerenal due to dehydration and poor oral intake, analgesic nephropathy, multiple myeloma. Cr today 0.9 -plan as noted above #History of chronic medical condition includes hypertension, hyperlipidemia Continue home meds including metoprolol, verapamil TUMS administered for reflux symptoms -plan as noted above Patient is DNI/DNR considering hospice DVT prophylaxis with Alps Allergies: Coded Allergies: NO KNOWN ALLERGIES (03/18/16) NKA PER ANTIBIOTIC SHEET - SJS Significant Procedures: BM Biopsy Disposition Summary Disposition Principal Diagnosis: Metastatic breast cancer Additional Diagnosis: Pancytopenia DIC panel positive Transaminitis JOSUE History of chronic medical condition includes hypertension, hyperlipidemia, DM Discharge Disposition: hospice - medical facilit Discharge Instructions General Discharge Information Code Status: Do Not Resucitate/Intubat (to change to hospice) Patient's Diet: regular, considering prognosis Patient's Activity: tolerated, with assistance Follow-Up Instructions/Appts: Please contact that is any questions. Please ask for pain medications if needed. Please contact Dr. Aiken if you want to change her decision regarding management of your cancer. Medications at Discharge Discharge Medications: Stop taking the following medications: Aspirin (Aspirin*) 325 MG TABLET ORAL DAILY Continue taking these medications: Ramipril (Altace) 10 MG CAPSULE 1 Capsule ORAL DAILY Comments: DOCUMENTED PER CMR DURING PRE-SX INTERVIEW Metoprolol Succ XL (Toprol XL) (Unknown Strength) TAB 50 Milligram ORAL DAILY Comments: DOCUMENTED PER CMR DURING PRE-SX INTERVIEW Verapamil HCl (Verapamil ER Pm) 200 MG CAP24H.PCT 1 Capsule ORAL DAILY Comments: DOCUMENTED PER CMR DURING PRE-SX INTERVIEW Hydrochlorothiazide (Hydrochlorothiazide) 12.5 MG CAPSULE 1 Capsule ORAL DAILY Comments: NOT GIVEN Atorvastatin Calcium (Lipitor) 20 MG TABLET 1 Tablet ORAL DAILY Comments: NOT GIVEN Metformin HCl (Metformin HCl) 500 MG TABLET 1 Tablet ORAL TWICE DAILY Comments: NOT GIVEN Brimonidine Tartrate/Timolol (Combigan Eye Drops) (Unknown Strength) DROPS Unknown Dose In the eye TWICE DAILY Comments: NOT GIVEN Prednisolone Acetate (Pred Forte) (Unknown Strength) DROPS.SUSP Unknown Dose In the eye TWICE DAILY Comments: DOCUMENTED PER CMR DURING PRE-SX INTERVIEW Start taking the following new medications: Morphine Sulfate (Morphine Sulfate) 4 MG/ML VIAL 2 Milligram INTRAVEN Every 2-4 Hours as Needed as needed for severe pain Qty = 30 No Refills Trimethobenzamide HCl (Tigan) 100 MG/ML VIAL 200 Milligram INTRAMUSC THREE TIMES DAILY as needed for NAUSEA/VOMITING Qty = 30 No Refills Nystatin (Nystatin) 100,000 UNIT/GRAM CREAM..G. 1 Application On the skin TWICE DAILY Days = 30 No Refills Copies To: Nelli LAKE,Ryan Huang MD,Orestes Joseph MD Review Statement Documenting Attending: Lachelle LAKE,[place]
[2017-05-19 13:21] VITALS: BP 114/66
== END 2017-05-19 16:22 | disposition home health service (06) | DRG 808 ==
LOC: ERH 19:31 → 2NA 21:48 → ERHI 21:48 → 2NB 21:48 → ENRESERV 05-12 13:45 → ENTRNSPT 05-12 16:07 → EDTRNSPTSTS 05-12 16:22 → EDTRNSPT 05-12 16:22 → 2NB 05-12 16:50 → CMPTRNSPT 05-12 16:55 → DELTRNSPT 05-12 17:00 → 2NA 05-18 18:39
PROVIDERS: Internal Medicine Hematology & Oncology; Physician Assistant Medical; Radiology Vascular & Interventional Radiology
PROC: 30233N1 Transfusion of Nonautologous Red Blood Cells into Peripheral Vein, Percutaneous Approach (ICD-10-PCS; principal; 2017-05-11)
PROC: 30233R1 Transfusion of Nonautologous Platelets into Peripheral Vein, Percutaneous Approach (ICD-10-PCS; 2017-05-13)
PROC: 07DR3ZX Extraction of Iliac Bone Marrow, Percutaneous Approach, Diagnostic (ICD-10-PCS; 2017-05-17)
DX: D61.818 Other pancytopenia (principal); D65 Disseminated intravascular coagulation [defibrination syndrome]; N17.9 Acute kidney failure, unspecified; C78.7 Secondary malignant neoplasm of liver and intrahepatic bile duct; E11.8 Type 2 diabetes mellitus with unspecified complications; D59.1 Other autoimmune hemolytic anemias; C79.51 Secondary malignant neoplasm of bone; E66.9 Obesity, unspecified; M89.9 Disorder of bone, unspecified; E87.5 Hyperkalemia; I10 Essential (primary) hypertension; Z79.84 Long term (current) use of oral hypoglycemic drugs; R74.0 Nonspecific elevation of levels of transaminase and lactic acid dehydrogenase [LDH]; M54.9 Dorsalgia, unspecified; K59.00 Constipation, unspecified; K57.90 Diverticulosis of intestine, part unspecified, without perforation or abscess without bleeding; Z85.3 Personal history of malignant neoplasm of breast; Z68.31 Body mass index [BMI] 31.0-31.9, adult; E78.5 Hyperlipidemia, unspecified; Z66 Do not resuscitate
CPT/HCPCS: 2NAP; ERO; 36415; 36592; 71045; 71046; 74018; 74176; 77012; 81001; 82436; 83010; 84165; 86920; 87086; 87804; 87804-59; 88184; 88305; 88307; 88313; 93005; 93010; 93306; 96361; 96374; 97110-GO; 97116-GO; 97161-GP; 97530-GO; A9561; J0131; J1815; J2310; J2405; J3250; J7042; P9016; P9031